=== PATIENT | female | born 1930 | race Caucasian/White ===

== ENCOUNTER 2018-05-29 11:02 | Observation (INO) ==
--- NOTE | 2018-05-29 11:51 | Emergency Department Note ---
Disposition Clinical Impression: UTI (urinary tract infection) Qualifiers: Urinary tract infection type: acute cystitis Hematuria presence: with hematuria Qualified Code(s): N30.01 - Acute cystitis with hematuria Fall Qualifiers: Encounter type: initial encounter Qualified Code(s): W19.XXXA - Unspecified fall, initial encounter Nasal bone fracture Qualifiers: Encounter type: initial encounter Fracture type: closed Qualified Code(s): S02.2XXA - Fracture of nasal bones, initial encounter for closed fracture Disposition: Transfer Short-Term Hosp Condition: Good Instructions: Urinary Tract Infection in Women (ED) Referrals: Marcela Bass CNP [Primary Care Provider] - Forms: ED Satisfaction Letter Time of Disposition: 14:17 Fall HPI - General Chief Complaint: ED Fall Stated Complaint: Fall Time Seen by Provider: 05/29/18 11:03 Source: patient, EMS Mode of arrival: EMS Limitations: no limitations Nursing Notes Reviewed: Yes Vital Signs Reviewed: Yes - History of Present Illness HPI Narrative: Ms. Tavares is a 88 yo female that presents via EMS for fall at home. Neighbor had been calling since 7:30am, family came to check on her just [employer] and found patient down in the living room. Patient was confused, saying she was laying in bed. She does not remember falling or getting out of bed this morning. Currently she notes pain in her left shoulder that is new and pain with palpation of left lateral upper ribs. Notes pain is 5/10 in severity. Denies chest pain, dyspnea, headaches, dizziness, vision changes, neck pain, abdominal pain, dysuria. PMHx of HTN, DM- Family states she does not take her medications as indicated. - Related Data Home Medications Medication Instructions Recorded Confirmed Aspirin [Lo-Dose Aspirin EC] 81 mg PO DAILY 05/29/18 05/29/18 Cyanocobalamin (Vitamin B-12) 1,000 mcg PO DAILY 05/29/18 05/29/18 [Vitamin B-12] Escitalopram [Lexapro] 10 mg PO DAILY 05/29/18 05/29/18 Glimepiride [Amaryl] 4 mg PO BID 05/29/18 05/29/18 Lisinopril [Zestril] 40 mg PO DAILY 05/29/18 05/29/18 Metoprolol Succinate [Toprol Xl] 25 mg PO DAILY 05/29/18 05/29/18 Montelukast [Singulair] 10 mg PO DAILY 05/29/18 05/29/18 Omeprazole [PriLOSEC] 40 mg PO DAILY 05/29/18 05/29/18 SitaGLIPtin [Januvia] 100 mg PO DAILY 05/29/18 05/29/18 Allergies Allergy/AdvReac Type Severity Reaction Status Date / Time "some steroids" Allergy See Uncoded 05/29/18 14:21 Comments All systems ED: reviewed and negative except as stated. 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 Absent: scleral icterus, conjunctival injection - ENT ENT exam: normal exam, mucous membranes moist - Neck Neck exam: Present: normal inspection, full ROM. Absent: tenderness - Chest Chest inspection: Present: symmetric chest wall rise, tenderness (left lateral pain with deep inspiration) - Respiratory Respiratory exam: Present: normal lung sounds bilaterally. Absent: respiratory distress, wheezes, accessory muscle use - Cardiovascular Cardiovascular exam: Present: regular rate, normal rhythm, +S1, +S2 - Abdominal Exam Abdominal exam: Present: soft, Non-Tender. Absent: distention, guarding, rebound, rigidity - Extremities Exam Extremities exam: Present: full ROM (of BLE and RUE.), tenderness (only of LUE) , normal capillary refill. Absent: pedal edema - Expanded Upper Extremity Exam Shoulder exam: Present: tenderness (with movement and palpation around shoulder joint). Absent: swelling, ecchymosis, erythema Vascular exam: Normal: capillary refill - Neurological Exam Neurological exam: Present: alert, oriented X3 - Psychiatric Psychiatric exam: Present: normal affect, normal mood - Skin Skin exam: Present: warm, dry, intact, normal color Course Vital Signs Temperature 99.0 F 05/29/18 11:04 Pulse Rate 83 05/29/18 11:04 Respiratory Rate 18 05/29/18 11:04 Blood Pressure 229/85 05/29/18 11:04 O2 Sat by Pulse Oximetry 95 05/29/18 11:04 Temperature 99.0 F 05/29/18 11:04 Pulse Rate 90 05/29/18 12:18 Respiratory Rate 18 05/29/18 12:18 Blood Pressure 162/87 05/29/18 12:18 O2 Sat by Pulse Oximetry 96 05/29/18 12:18 Oxygen Delivery Oxygen Delivery Room Air Fall - MDM Narrative Medical decision making narrative: Patient seen for fall that she does not remember what happened and was confused as to where she was at. CT head and neck negative. Complaints of L shoulder and rib pain, CXR and shoulder XR negative. Facial CT with nasal bone fracture. Labs with low Na of 129, possibly secondary to elevated BG. Family notes she has not been taking HTN or DM meds. UA postive for UTI in addition to having hematuria, glucose and protein present. Will start on antiobiotics for UTI. Patient aware of results and recommendation for admission, she and family in agreement. - Differential Diagnosis Likely: syncope, arrhythmia - Lab Data Lab results reviewed: Yes I reviewed the patient's lab results. Result diagrams: 05/29/18 12:26 05/29/18 12:26 Lab Results 05/29/18 05/29/18 05/29/18 Range/Units 12:26 12:26 12:26 WBC 10.5 (4.3-11.1) K/mcL RBC 5.21 H (3.82-4.97) M/mcL Hgb 15.3 (11.5-15.4) g/dL Hct 44.1 (35.3-44.9) % MCV 84.6 (83.0-100.0) fL MCH 29.4 (28.0-33.3) pg MCHC 34.7 (31.6-35.5) g/dL RDW 13.4 (11.5-14.5) % Plt Count 199 (140-400) K/mcL MPV 8.9 L (9.4-12.4) fL Immature Gran % 0.4 (0-4) % Seg Neutrophils % 77.3 % Lymphocytes % 13.9 % Monocytes % 7.7 % Eosinophils % 0.2 % Basophils % 0.5 % Neutrophils # 8.1 (1.6-8.9) K/mcL Lymphocytes # 1.5 (0.6-4.6) K/mcL Monocytes # 0.8 (0.0-1.3) K/mcL Eosinophils # 0.0 (0.0-0.6) K/mcL Basophils # 0.1 (0.0-0.2) K/mcL PT 11.7 (9.4-12.1) Seconds INR 1.0 APTT 27.1 (26.0-36.0) Seconds Sodium 129 L (136-145) mEq/L Potassium 3.7 (3.5-5.1) mEq/L Chloride 95 L (98-107) mEq/L Carbon Dioxide 23 (23-29) mEq/L BUN 13 (8-23) mg/dL Creatinine 0.71 (0.60-1.20) mg/dL Est GFR ( Amer) > 60 (> 60) Est GFR (Non-Af Amer) > 60 (> 60) BUN/Creatinine Ratio 18 (6-26) Glucose 255 H (70-105) mg/dL Calculated Osmolality 277 L (280-300) Lactic Acid (0.5-2.2) mmol/L Calcium 9.4 (8.6-10.3) mg/dL Troponin I (< 0.04) ng/mL Urine Color (Yellow) Urine Clarity (Clear) Urine pH (5.0-8.0) pH Units Ur Specific [place] (1.010-1.025) Urine Protein (Neg-Trace) mg/dL Urine Glucose (UA) (Normal) mg/dL Urine Ketones (Negative) mg/dL Urine Blood (Negative) Urine Nitrite (Negative) Urine Bilirubin (Negative) Urine Urobilinogen (Normal) mg/dL Ur Leukocyte Esterase (Negative) Urine Microscopic RBC (0-3) per hpf Urine Microscopic WBC (0-3) per hpf Ur Squamous Epith Cells (None-Few) per lpf Urine Bacteria (None-Few) per hpf Hyaline Casts (None-Few) per lpf 05/29/18 05/29/18 05/29/18 Range/Units 12:26 12:26 13:05 WBC (4.3-11.1) K/mcL RBC (3.82-4.97) M/mcL Hgb (11.5-15.4) g/dL Hct (35.3-44.9) % MCV (83.0-100.0) fL MCH (28.0-33.3) pg MCHC (31.6-35.5) g/dL RDW (11.5-14.5) % Plt Count (140-400) K/mcL MPV (9.4-12.4) fL Immature Gran % (0-4) % Seg Neutrophils % % Lymphocytes % % Monocytes % % Eosinophils % % Basophils % % Neutrophils # (1.6-8.9) K/mcL Lymphocytes # (0.6-4.6) K/mcL Monocytes # (0.0-1.3) K/mcL Eosinophils # (0.0-0.6) K/mcL Basophils # (0.0-0.2) K/mcL PT (9.4-12.1) Seconds INR APTT (26.0-36.0) Seconds Sodium (136-145) mEq/L Potassium (3.5-5.1) mEq/L Chloride (98-107) mEq/L Carbon Dioxide (23-29) mEq/L BUN (8-23) mg/dL Creatinine (0.60-1.20) mg/dL Est GFR ( Amer) (> 60) Est GFR (Non-Af Amer) (> 60) BUN/Creatinine Ratio (6-26) Glucose (70-105) mg/dL Calculated Osmolality (280-300) Lactic Acid 2.1 (0.5-2.2) mmol/L Calcium (8.6-10.3) mg/dL Troponin I < 0.03 (< 0.04) ng/mL Urine Color Yellow (Yellow) Urine Clarity Turbid A (Clear) Urine pH 6.0 (5.0-8.0) pH Units Ur Specific [place] 1.018 (1.010-1.025) Urine Protein >=300 H (Neg-Trace) mg/dL Urine Glucose (UA) >=1000 H (Normal) mg/dL Urine Ketones 15 H (Negative) mg/dL Urine Blood Small H (Negative) Urine Nitrite Negative (Negative) Urine Bilirubin Negative (Negative) Urine Urobilinogen Normal (Normal) mg/dL Ur Leukocyte Esterase Large H (Negative) Urine Microscopic RBC 5-15 H (0-3) per hpf Urine Microscopic WBC TNTC H (0-3) per hpf Ur Squamous Epith Cells Many H (None-Few) per lpf Urine Bacteria Many H (None-Few) per hpf Hyaline Casts None Seen (None-Few) per lpf - Radiology Data Radiology results reviewed: Yes I reviewed the patient's radiology results. - EKG Data EKG attestation: Yes I reviewed and interpreted this EKG. EKG shows normal: sinus rhythm Rate: normal Rhythm: NSR
[2018-05-29 12:40] LABS: Basophils # 0.1 K/mcL (0.0-0.2); Basophils % 0.5 %; Eosinophils % 0.2 %; Hematocrit 44.1 % (35.3-44.9); Hemoglobin 15.3 g/dL (11.5-15.4); Immature Granulocytes % 0.4 % (0-4); Lymphocytes # 1.5 K/mcL (0.6-4.6); Lymphocytes % 13.9 %; Mean Corpuscular HGB Conc 34.7 g/dL (31.6-35.5); Mean Corpuscular Hemoglobin 29.4 pg (28.0-33.3); Mean Corpuscular Volume 84.6 fL (83.0-100.0); Mean Platelet Volume 8.9 fL (9.4-12.4); Monocytes # 0.8 K/mcL (0.0-1.3); Monocytes % 7.7 %; Neutrophils # 8.1 K/mcL (1.6-8.9); Platelet Count 199 K/mcL (140-400); Red Blood Count 5.21 M/mcL (3.82-4.97); Red Cell Distribution Width 13.4 % (11.5-14.5); Segmented Neutrophils % 77.3 %
[2018-05-29 12:50] LABS: Prothrombin Time 11.7 Seconds (9.4-12.1)
[2018-05-29 12:52] LABS: Activated Partial Thrombo Time 27.1 Seconds (26.0-36.0)
[2018-05-29 12:59] LABS: BUN/Creatinine Ratio 18 (6-26); Blood Urea Nitrogen 13 mg/dL (8-23); Calcium 9.4 mg/dL (8.6-10.3); Carbon Dioxide 23 mEq/L (23-29); Chloride 95 mEq/L (98-107); Glucose 255 mg/dL (70-105); Osmolality,Calculated 277 (280-300); Potassium 3.7 mEq/L (3.5-5.1); Sodium 129 mEq/L (136-145); eGFR For Non-African Americans > 60 (> 60)
[2018-05-29 13:23] LABS: Bilirubin,Urine Negative (Negative); Blood,Urine Small (Negative); Clarity,Urine Turbid (Clear); Color,Urine Yellow (Yellow); Glucose,Urine (UA) >=1000 mg/dL (Normal); Ketones,Urine 15 mg/dL (Negative); Leukocyte Esterase,Urine Large (Negative); Nitrite,Urine Negative (Negative); Protein,Urine >=300 mg/dL (Neg-Trace); Specific Gravity,Urine 1.018 (1.010-1.025); Urobilinogen,Urine Normal (Normal)
[2018-05-29 13:26] LABS: Bacteria,Urine Many per hpf (None-Few); Hyaline Casts,Urine None Seen per lpf (None-Few); Squamous Epithelial Cell,Urine Many per lpf (None-Few); WBC,Urine TNTC per hpf (0-3)
--- NOTE | 2018-05-29 14:15 | Emergency Department Note ---
Disposition Clinical Impression: Head trauma Urinary tract infection Qualifiers: Urinary tract infection type: acute cystitis Hematuria presence: with hematuria Qualified Code(s): N30.01 - Acute cystitis with hematuria Disposition: Admitted As Inpatient Condition: Fair Instructions: Urinary Tract Infection in Women (ED) Referrals: Marcela Bass CNP [Primary Care Provider] - Forms: ED Satisfaction Letter Time of Disposition: 14:00 Fall HPI - General Chief Complaint: ED Fall Stated Complaint: Fall Time Seen by Provider: 05/29/18 11:03 Source: patient, EMS Mode of arrival: EMS Limitations: no limitations Nursing Notes Reviewed: Yes Vital Signs Reviewed: Yes - Related Data Allergies Allergy/AdvReac Type Severity Reaction Status Date / Time "some steroids" Allergy See Uncoded 05/29/18 11:14 Comments Fall PMH - Past Medical History Medical history: Reports: diabetes, hypertension 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, Chronic Gait Instabilites Surgical history: Reports: other - Social History Smoking Status: Never smoker Alcohol use: Reports: none Drug use: Reports: none Physical Exam - General Limitations: no limitations General appearance: alert, in no apparent distress Course Vital Signs Temperature 99.0 F 05/29/18 11:04 Pulse Rate 83 05/29/18 11:04 Respiratory Rate 18 05/29/18 11:04 Blood Pressure 229/85 05/29/18 11:04 O2 Sat by Pulse Oximetry 95 05/29/18 11:04 Temperature 99.0 F 05/29/18 11:04 Pulse Rate 90 05/29/18 12:18 Respiratory Rate 18 05/29/18 12:18 Blood Pressure 162/87 05/29/18 12:18 O2 Sat by Pulse Oximetry 96 05/29/18 12:18 Oxygen Delivery Oxygen Delivery Room Air Fall - Lab Data Result diagrams: 05/29/18 12:26 05/29/18 12:26 Lab Results 05/29/18 05/29/18 05/29/18 Range/Units 12:26 12:26 12:26 WBC 10.5 (4.3-11.1) K/mcL RBC 5.21 H (3.82-4.97) M/mcL Hgb 15.3 (11.5-15.4) g/dL Hct 44.1 (35.3-44.9) % MCV 84.6 (83.0-100.0) fL MCH 29.4 (28.0-33.3) pg MCHC 34.7 (31.6-35.5) g/dL RDW 13.4 (11.5-14.5) % Plt Count 199 (140-400) K/mcL MPV 8.9 L (9.4-12.4) fL Immature Gran % 0.4 (0-4) % Seg Neutrophils % 77.3 % Lymphocytes % 13.9 % Monocytes % 7.7 % Eosinophils % 0.2 % Basophils % 0.5 % Neutrophils # 8.1 (1.6-8.9) K/mcL Lymphocytes # 1.5 (0.6-4.6) K/mcL Monocytes # 0.8 (0.0-1.3) K/mcL Eosinophils # 0.0 (0.0-0.6) K/mcL Basophils # 0.1 (0.0-0.2) K/mcL PT 11.7 (9.4-12.1) Seconds INR 1.0 APTT 27.1 (26.0-36.0) Seconds Sodium 129 L (136-145) mEq/L Potassium 3.7 (3.5-5.1) mEq/L Chloride 95 L (98-107) mEq/L Carbon Dioxide 23 (23-29) mEq/L BUN 13 (8-23) mg/dL Creatinine 0.71 (0.60-1.20) mg/dL Est GFR ( Amer) > 60 (> 60) Est GFR (Non-Af Amer) > 60 (> 60) BUN/Creatinine Ratio 18 (6-26) Glucose 255 H (70-105) mg/dL Calculated Osmolality 277 L (280-300) Lactic Acid (0.5-2.2) mmol/L Calcium 9.4 (8.6-10.3) mg/dL Troponin I (< 0.04) ng/mL Urine Color (Yellow) Urine Clarity (Clear) Urine pH (5.0-8.0) pH Units Ur Specific [place] (1.010-1.025) Urine Protein (Neg-Trace) mg/dL Urine Glucose (UA) (Normal) mg/dL Urine Ketones (Negative) mg/dL Urine Blood (Negative) Urine Nitrite (Negative) Urine Bilirubin (Negative) Urine Urobilinogen (Normal) mg/dL Ur Leukocyte Esterase (Negative) Urine Microscopic RBC (0-3) per hpf Urine Microscopic WBC (0-3) per hpf Ur Squamous Epith Cells (None-Few) per lpf Urine Bacteria (None-Few) per hpf Hyaline Casts (None-Few) per lpf 05/29/18 05/29/18 05/29/18 Range/Units 12:26 12:26 13:05 WBC (4.3-11.1) K/mcL RBC (3.82-4.97) M/mcL Hgb (11.5-15.4) g/dL Hct (35.3-44.9) % MCV (83.0-100.0) fL MCH (28.0-33.3) pg MCHC (31.6-35.5) g/dL RDW (11.5-14.5) % Plt Count (140-400) K/mcL MPV (9.4-12.4) fL Immature Gran % (0-4) % Seg Neutrophils % % Lymphocytes % % Monocytes % % Eosinophils % % Basophils % % Neutrophils # (1.6-8.9) K/mcL Lymphocytes # (0.6-4.6) K/mcL Monocytes # (0.0-1.3) K/mcL Eosinophils # (0.0-0.6) K/mcL Basophils # (0.0-0.2) K/mcL PT (9.4-12.1) Seconds INR APTT (26.0-36.0) Seconds Sodium (136-145) mEq/L Potassium (3.5-5.1) mEq/L Chloride (98-107) mEq/L Carbon Dioxide (23-29) mEq/L BUN (8-23) mg/dL Creatinine (0.60-1.20) mg/dL Est GFR ( Amer) (> 60) Est GFR (Non-Af Amer) (> 60) BUN/Creatinine Ratio (6-26) Glucose (70-105) mg/dL Calculated Osmolality (280-300) Lactic Acid 2.1 (0.5-2.2) mmol/L Calcium (8.6-10.3) mg/dL Troponin I < 0.03 (< 0.04) ng/mL Urine Color Yellow (Yellow) Urine Clarity Turbid A (Clear) Urine pH 6.0 (5.0-8.0) pH Units Ur Specific [place] 1.018 (1.010-1.025) Urine Protein >=300 H (Neg-Trace) mg/dL Urine Glucose (UA) >=1000 H (Normal) mg/dL Urine Ketones 15 H (Negative) mg/dL Urine Blood Small H (Negative) Urine Nitrite Negative (Negative) Urine Bilirubin Negative (Negative) Urine Urobilinogen Normal (Normal) mg/dL Ur Leukocyte Esterase Large H (Negative) Urine Microscopic RBC 5-15 H (0-3) per hpf Urine Microscopic WBC TNTC H (0-3) per hpf Ur Squamous Epith Cells Many H (None-Few) per lpf Urine Bacteria Many H (None-Few) per hpf Hyaline Casts None Seen (None-Few) per lpf Attestation Statement - Attestation Attestation: I, Claudio Frey, examined this patient and my medical decision-making was reviewed with the PRODUCT MERCHANDISER/PA/Advanced Practice Nurse/Resident Physician. I agree with the documented findings, disposition and treatment plan as described except to the extent set forth below. 88-year-old female presents emergency Department with concerns of a fall this morning. Patient is unable to recall the events surrounding the fall. She thought that she was still in her bed while she was laying on the ground in the kitchen. Family found her on the ground is unknown how long she was on the ground. Patient is alert and oriented 3 in emergency department. Patient has a history of urinary tract infections in the past. Urinalysis today showed urinary tract infection. She was given antibiotics in the emergency department she will be admitted to the hospital for further care and evaluation. CT of the head and neck does not reveal acute fracture or internal hemorrhage however CT maxillofacial showed nasal bridge fracture. Patient will be admitted to the hospital for further care and evaluation
[2018-05-29] MEDS ORDERED: CefTRIAXone 1,000 MG VIAL IM ONE (14:16)
[2018-05-29 14:40] LABS: Creatine Kinase 177 Units/L (30-223)
[2018-05-29] MEDS ORDERED: Naloxone 0.4 MG/ML INJ IVP PRN (15:00)
[2018-05-29] MEDS ORDERED: *HR* Dextrose 50 % in Water (Syg) 50 ML SYRINGE IVP PRN (15:04)
[2018-05-29] MEDS ORDERED: Dextrose Gel 15 GM/37.5 ML TUBE PO PRN ×2 (15:04)
[2018-05-29] MEDS ORDERED: D5% in Water 1,000 ML IVC PRN (15:04)
--- NOTE | 2018-05-29 15:17 | Internal Med History&Physical ---
Date of Encounter: 05/29/18 Time of Encounter: 15:07 Internal Medicine - H&P: HPI Chief complaint: fall Admitted From: Home Plans for Post Hospital Care: Transfer Care Home Facility History of present illness: Ms. Tavares is a 88 yo female who has hx of hypertension, DM, lives alone at home , she presented via EMS for fall at home. Patient said that she woke up 4 a.m. try to get some water and then she fell on the floor unable to get up she denies loss of consciousness. Neighbors had been calling since 7:30am, family came to check on her at 10 am, she was found on the floor in the living room. Patient was confused, saying she was laying in bed. she notes pain in her left shoulder that is new and pain with palpation of left lateral upper ribs. Notes pain is 5/10 in severity. In ER, she was found UTI, and nasal bone fracture. When I saw her , she is alert and oriented to3, her daughter in low and 2 Neighbors are in the room. they are concerned about she has been falling, 3-4 times last year, she broke her nase last time as well. they are thinking to get her into child nutrition assistant living. Patient on and off getting confused, not take medications as instructed. patient denies LOC during the fall. Denies chest pain , dyspnea, headaches, dizziness, vision changes, neck pain, abdominal pain, dysuria. I discussed the CODE STATUS with patient and her her [id number] who is patient is a ANSELMO Horton. They want to be DNR CCA no intubation. Patient is going to be palced OBS for fall, UTI, consult PT OT social work for placement. Past Med Surg Social Fam HX - Past Medical History Medical history: diabetes, hypertension - Past Surgical History Surgical History: other - Social History Smoking Status: Never smoker Smokeless Tobacco Status: No Alcohol use: none Drug use: none Internal Medicine - H&P: Meds Aspirin [Lo-Dose Aspirin EC] 81 mg PO DAILY 05/29/18 [History] Cyanocobalamin (Vitamin B-12) [Vitamin B-12] 1,000 mcg PO DAILY 05/29/18 [ History] Escitalopram [Lexapro] 10 mg PO DAILY 05/29/18 [History] Glimepiride [Amaryl] 4 mg PO BID 05/29/18 [History] Lisinopril [Zestril] 40 mg PO DAILY 05/29/18 [History] Metoprolol Succinate [Toprol Xl] 25 mg PO DAILY 05/29/18 [History] Montelukast [Singulair] 10 mg PO DAILY 05/29/18 [History] Omeprazole [PriLOSEC] 40 mg PO DAILY 05/29/18 [History] SitaGLIPtin [Januvia] 100 mg PO DAILY 05/29/18 [History] 3 Allergy/AdvReac Type Severity Reaction Status Date / Time "some steroids" Allergy See Uncoded 05/29/18 14:21 Comments All Systems PM: A 10-system review of systems was performed and is negative for pertinent findings except as documented above in the HPI. - Constitutional Vitals: Temp Pulse Resp BP Pulse Ox 99.0 F 81 18 144/76 95 05/29/18 11:04 05/29/18 14:21 05/29/18 14:21 05/29/18 14:21 05/29/18 14:21 General appearance: Present: cooperative, A&O X 3, pleasant Exam: CONSTITUTIONAL: Patient appears as an age appropriate female well developed, in no acute distress. EYES Clear sclerae, bilateral pupils are equal, reactive to light and accommodation. Extraocular movements are intact RESPIRATORY: No accessory muscle use, bilateral basilar crackles to auscultation , no wheezing. CARDIOVASCULAR: Regular heart rate, normal S1 and S2, no murmurs GASTROINTESTINAL: bowel sounds present, soft, no tenderness. No hepatosplenomegaly. No bilateral CVA tenderness MUSCULOSKELETAL: Joints in normal range of motion, no clubbing, no edema, no cyanosis. Bilateral peripheral pulses 2+ LYMPHATIC no lymphadenopathy in neck, groin and axilla bilaterally, no thyromegaly. NEUROLOGIC: CN II to XII are grossly intact, no focal neurological deficit. Deep tendon reflexes 2+ bilaterally. Normal light touch sensation to upper and lower extremity PSYCHIATRIC: Oriented x3, with good insight, mood is euthymic. No hallucinations or delusions. SKIN: Skin warm and dry, no rashes, no open wound. Internal Med - H&P Results - Labs CBC & Chem 7: 05/29/18 12:26 05/29/18 12:26 - Assessment and plan (1) Fall Current Visit: Yes Status: Acute Assessment and plan: Patient lives at home alone, had this 3-4 times fall over last year, she also has on and off confusion. Patient had a son just . [id number] lives nearby. Discussed with her [id number] who is a POA, she would like patient to go to assisted living facility or short-term rehabilitation. Patient also agrees to go to SNF. Patient has a negative C-spine shoulder x-ray did not show fracture. Chest x- ray and did not show pneumothorax or pneumonia. consult PT and OT, social work Qualifiers: Encounter type: initial encounter Qualified Code(s): W19.XXXA - Unspecified fall, initial encounter (2) UTI (urinary tract infection) Current Visit: Yes Status: Acute Assessment and plan: continue iV ceftriaxone Qualifiers: Urinary tract infection type: acute cystitis Hematuria presence: without hematuria Qualified Code(s): N30.00 - Acute cystitis without hematuria (3) Diabetes Current Visit: Yes Status: Acute Assessment and plan: uncontrolled, will check A1c, she was not take medications at home, will add SSI Qualifiers: Diabetes mellitus type: type 2 Diabetes mellitus terminal clerk insulin use: without terminal clerk use Diabetes mellitus complication status: without complication Qualified Code(s): E11.9 - Type 2 diabetes mellitus without complications (4) Hypertension Current Visit: Yes Status: Acute Assessment and plan: contineu home meds Qualifiers: Hypertension type: essential hypertension Qualified Code(s): I10 - Essential (primary) hypertension (5) Hyponatremia Current Visit: Yes Status: Acute Assessment and plan: likley from uncontrolled DM, BG was 255 (6) Cardiomyopathy Current Visit: Yes Status: Acute Assessment and plan: will check ECHo Qualifiers: Cardiomyopathy type: unspecified Qualified Code(s): I42.9 - Cardiomyopathy , unspecified (7) Nasal bone fracture Current Visit: Yes Status: Acute Assessment and plan: she she denies pain, denies shortness of breath, no nasal stuffness supportive care Qualifiers: Encounter type: initial encounter Fracture type: closed Qualified Code(s) : S02.2XXA - Fracture of nasal bones, initial encounter for closed fracture - Time Spent With Patient Total time spent is greater than 50% in coordination of care (as documented) at patient's floor/unit and/or counseling patient: Greater than 35 minutes
[2018-05-29] MEDS: *HR* Heparin 5,000 UNIT/ML VIAL SQ SCH ×2 (16:19→21:11)
[2018-05-29] MEDS: Acetaminophen 325 MG TABLET PO PRN (16:19)
[2018-05-29] MEDS: Aspirin Enteric Coated 81 MG Tablet PO SCH (16:20)
[2018-05-29] MEDS: Insulin LISPRO 300 UNITS/3 ML VIAL SQ SCH ×2 (16:49→21:10)
[2018-05-29 20:58] LABS: Estimated Average Glucose 220 mg/dl; Hemoglobin A1C 9.3 %
[2018-05-29] MEDS: *HR* Glimepiride 4 MG TABLET PO SCH (21:10)
[2018-05-30 05:06] LABS: Hematocrit 40.3 % (35.3-44.9); Mean Corpuscular HGB Conc 33.3 g/dL (31.6-35.5); Mean Corpuscular Hemoglobin 28.2 pg (28.0-33.3); Mean Corpuscular Volume 84.8 fL (83.0-100.0); Mean Platelet Volume 9.4 fL (9.4-12.4); Platelet Count 205 K/mcL (140-400); Red Blood Count 4.75 M/mcL (3.82-4.97); Red Cell Distribution Width 13.8 % (11.5-14.5)
[2018-05-30 05:20] LABS: BUN/Creatinine Ratio 25 (6-26); Blood Urea Nitrogen 24 mg/dL (8-23); Calcium 9.3 mg/dL (8.6-10.3); Carbon Dioxide 24 mEq/L (23-29); Chloride 100 mEq/L (98-107); Glucose 284 mg/dL (70-105); Magnesium 2.1 mg/dL (1.6-2.6); Osmolality,Calculated 292 (280-300); Potassium 3.5 mEq/L (3.5-5.1); Sodium 134 mEq/L (136-145); eGFR For Non-African Americans 55 (> 60)
[2018-05-30 05:21] LABS: Troponin I < 0.03 ng/mL (< 0.04)
[2018-05-30 05:24] LABS: Hemoglobin 13.4 g/dL (11.5-15.4)
[2018-05-30] MEDS: *HR* Heparin 5,000 UNIT/ML VIAL SQ SCH ×3 (06:27→20:47)
[2018-05-30] MEDS: *HR* SitaGLIPtin 25 MG TABLET PO SCH (08:21)
[2018-05-30] MEDS: Lisinopril 20 MG TABLET PO SCH (08:21)
[2018-05-30] MEDS: Cyanocobalamin (B-12) 1,000 MCG TABLET PO SCH (08:21)
[2018-05-30] MEDS: Aspirin Enteric Coated 81 MG Tablet PO SCH (08:22)
[2018-05-30] MEDS: Metoprolol XL (24 HR) Succ 25 MG TAB.ER.24H PO SCH (08:22)
[2018-05-30] MEDS: *HR* Glimepiride 4 MG TABLET PO SCH ×2 (08:22→20:47)
[2018-05-30] MEDS: Insulin LISPRO 300 UNITS/3 ML VIAL SQ SCH ×4 (08:24→20:50)
--- NOTE | 2018-05-30 08:25 | Internal Med Progress Note ---
Hospitalist Progress Note - Encounter Date of Encounter: 05/30/18 Time of Encounter: 08:29 - Subjective Interval History: Ms. Tavares is a 88 yo female who has hx of hypertension, DM, lives alone at home , she presented via EMS for fall at home. Patient said that she woke up 4 a.m. try to get some water and then she fell on the floor unable to get up she denies loss of consciousness. Neighbors had been calling since 7:30am, family came to check on her at 10 am, she was found on the floor in the living room. Patient was confused, saying she was laying in bed. she notes pain in her left shoulder that is new and pain with palpation of left lateral upper ribs. Notes pain is 5/10 in severity. In ER, she was found UTI, and nasal bone fracture. I discussed the CODE STATUS with patient and her her [id number] who is patient is a ANSELMO Horton. They want to be DNR CCA no intubation. Patient is going to be palced OBS for fall, UTI, consult PT OT social work for placement. Patient is doing well, afebrile, overnight no issues. She has been drinking and water. Potassium 3.5 we will give 40 Meq . Blood glucose has been running 377-284. We will add long acting insulin detemir 10 units twice a day, A1c 9.3 %. Troponin is negative 2 BNP 95. UTI pending culture, continue ceftriaxone Awaiting for PTOT and replacement Patient lives alone at home, unable to take care of herself, no family is available for her. She needs go to long-term care - Exam Vitals: Temp Pulse Resp BP Pulse Ox 97.4 F L 74 16 146/81 94 05/30/18 05:11 05/30/18 05:11 05/30/18 05:11 05/30/18 05:11 05/30/18 05:11 Exam: CONSTITUTIONAL: Patient appears as an age appropriate female well developed, in no acute distress. EYES Clear sclerae, bilateral pupils are equal, reactive to light and accommodation. Extraocular movements are intact RESPIRATORY: No accessory muscle use, bilateral basilar crackles to auscultation , no wheezing. CARDIOVASCULAR: Regular heart rate, normal S1 and S2, no murmurs GASTROINTESTINAL: bowel sounds present, soft, no tenderness. No hepatosplenomegaly. No bilateral CVA tenderness MUSCULOSKELETAL: Joints in normal range of motion, no clubbing, no edema, no cyanosis. Bilateral peripheral pulses 2+ LYMPHATIC no lymphadenopathy in neck, groin and axilla bilaterally, no thyromegaly. NEUROLOGIC: CN II to XII are grossly intact, no focal neurological deficit. Deep tendon reflexes 2+ bilaterally. Normal light touch sensation to upper and lower extremity PSYCHIATRIC: Oriented x3, with good insight, mood is euthymic. No hallucinations or delusions. SKIN: Skin warm and dry, no rashes, no open wound. - Assessment and Plan (1) Fall Current Visit: Yes Status: Acute Assessment and Plan: recurrent falls at the home, Nasal bone fracture Lives alone in home, no family is available for her she needs to go to long-term care Her POA is daughter in-law Meagan Horton (2) UTI (urinary tract infection) Current Visit: Yes Status: Acute Assessment and Plan: pendign culture, contineu ceftriaxone (3) Diabetes Current Visit: Yes Status: Acute Assessment and Plan: Type 2 diabetes uncontrolled, due to noncompliant with diet and medications. A1c 9.3%. We will continue home medication and add detmir 10 units twice a day (4) Hypertension Current Visit: Yes Status: Acute Assessment and Plan: better controlled with home meds (5) Hyponatremia Current Visit: Yes Status: Acute Assessment and Plan: resolved (6) Cardiomyopathy Current Visit: Yes Status: Acute Assessment and Plan: pending TTE (7) Nasal bone fracture Current Visit: Yes Status: Acute Assessment and Plan: supportive care (8) Hypokalemia Current Visit: Yes Status: Acute Assessment and Plan: replaced - Time Spent with Patient Total time spent is greater than 50% in coordination of care (as documented) at patient's floor/unit and/or counseling patient: 25 - 35 minutes Internal Medicine: Result - Labs CBC & Chem 7: 05/30/18 04:16 05/30/18 04:16 Labs: Short CBC 05/30/18 Range/Units 04:16 WBC 7.7 (4.3-11.1) K/mcL Hgb 13.4 D (11.5-15.4) g/dL Hct 40.3 (35.3-44.9) % Plt Count 205 (140-400) K/mcL BMP 05/30/18 04:16 Sodium 134 L Potassium 3.5 Chloride 100 Carbon Dioxide 24 BUN 24 H Creatinine 0.95 Glucose 284 H Calcium 9.3 Cardiac Enzymes 05/30/18 Range/Units 04:16 Troponin I < 0.03 (< 0.04) ng/mL - ABG Interpretation ABG results: PT/INR, D-dimer PT 11.7 Seconds (9.4-12.1) 05/29/18 12:26 Consult Discharge Plan - Plan Referrals: Marcela Bass, MAINTENANCE TRUCK DRIVER [Primary Care Provider] - (1) Fall Qualifiers: Encounter type: initial encounter Qualified Code(s): W19.XXXA - Unspecified fall, initial encounter (2) UTI (urinary tract infection) Qualifiers: Urinary tract infection type: acute cystitis Hematuria presence: without hematuria Qualified Code(s): N30.00 - Acute cystitis without hematuria (3) Diabetes Qualifiers: Diabetes mellitus type: type 2 Diabetes mellitus chcf insulin use: without moth exterminator use Diabetes mellitus complication status: without complication Qualified Code(s): E11.9 - Type 2 diabetes mellitus without complications (4) Hypertension Qualifiers: Hypertension type: essential hypertension Qualified Code(s): I10 - Essential (primary) hypertension (6) Cardiomyopathy Qualifiers: Cardiomyopathy type: unspecified Qualified Code(s): I42.9 - Cardiomyopathy, unspecified (7) Nasal bone fracture Qualifiers: Encounter type: initial encounter Fracture type: closed Qualified Code(s): S02.2XXA - Fracture of nasal bones, initial encounter for closed fracture
[2018-05-30] MEDS: Insulin DETEMIR 100 UNIT/ML X5UNITS SQ SCH ×2 (10:18→20:47)
[2018-05-30] MEDS: cefTRIAXone 1,000 MG in Water for inj. (sterile) 20 ML 10 ML IVP SCH (15:05)
[2018-05-30] MEDS: Acetaminophen 325 MG TABLET PO PRN (17:55)
[2018-05-31] MEDS: Acetaminophen 325 MG TABLET PO PRN (00:03)
[2018-05-31] MEDS: *HR* Heparin 5,000 UNIT/ML VIAL SQ SCH ×3 (06:15→23:46)
[2018-05-31 06:18] LABS: BUN/Creatinine Ratio 28 (6-26); Blood Urea Nitrogen 24 mg/dL (8-23); Calcium 8.9 mg/dL (8.6-10.3); Carbon Dioxide 19 mEq/L (23-29); Chloride 101 mEq/L (98-107); Glucose 178 mg/dL (70-105); Osmolality,Calculated 278 (280-300); Potassium 3.8 mEq/L (3.5-5.1); Sodium 130 mEq/L (136-145); eGFR For Non-African Americans > 60 (> 60)
[2018-05-31] MEDS: *HR* SitaGLIPtin 25 MG TABLET PO SCH (08:29)
[2018-05-31] MEDS: Lisinopril 20 MG TABLET PO SCH (08:29)
[2018-05-31] MEDS: *HR* Glimepiride 4 MG TABLET PO SCH ×2 (08:29→23:45)
[2018-05-31] MEDS: Cyanocobalamin (B-12) 1,000 MCG TABLET PO SCH (08:29)
[2018-05-31] MEDS: Metoprolol XL (24 HR) Succ 25 MG TAB.ER.24H PO SCH (08:29)
[2018-05-31] MEDS: Insulin LISPRO 300 UNITS/3 ML VIAL SQ SCH ×4 (08:30→23:45)
[2018-05-31] MEDS: Aspirin Enteric Coated 81 MG Tablet PO SCH (08:30)
[2018-05-31] MEDS: Insulin DETEMIR 100 UNIT/ML X5UNITS SQ SCH ×2 (09:14→23:46)
--- NOTE | 2018-05-31 09:16 | Physician Discharge Referral ---
Home Health/Hosp Referral Info Transfer to: Home Health Attending Provider: Dr. Paz Provider in Charge Post Discharge: PCP - Diagnosis (1) Fall Priority: Primary Status: Acute (2) UTI (urinary tract infection) Priority: Secondary Status: Acute (3) Nasal bone fracture Priority: Secondary Status: Acute (4) DVT prophylaxis Priority: Secondary Status: Acute (5) Diabetes Priority: Secondary Status: Chronic (6) Hypertension Priority: Secondary Status: Chronic - Respiratory Orders None Smoking Cessation: Smoking cessation has been advised. For more information, call the [place] Tobacco Quit Line at 2-669-HQBG-NOW. - Diet/Nutrition Diet/Nutrition Orders: Cardiac - Activity Activity Orders: Up ad silvia, Walker - Services Needed Following services are medically necessary services: Home Health Aide, Physical Therapy, Occupational Therapy - Transfer Medications Prescriptions: Cephalexin [Keflex] 250 mg PO DAILY 5 Days #10 capsule Home Medications: Aspirin [Lo-Dose Aspirin EC] 81 mg PO DAILY 05/29/18 [History] Cyanocobalamin (Vitamin B-12) [Vitamin B-12] 1,000 mcg PO DAILY 05/29/18 [ History] Escitalopram [Lexapro] 10 mg PO DAILY 05/29/18 [History] Glimepiride [Amaryl] 4 mg PO BID 05/29/18 [History] Lisinopril [Zestril] 40 mg PO DAILY 05/29/18 [History] Metoprolol Succinate [Toprol Xl] 25 mg PO DAILY 05/29/18 [History] Montelukast [Singulair] 10 mg PO DAILY 05/29/18 [History] Omeprazole [PriLOSEC] 40 mg PO DAILY 05/29/18 [History] SitaGLIPtin [Januvia] 100 mg PO DAILY 05/29/18 [History] Cephalexin [Keflex] 250 mg PO DAILY 5 Days #10 capsule 05/31/18 [Rx] Allergies/Adverse Reactions: 3 Allergy/AdvReac Type Severity Reaction Status Date / Time "some steroids" Allergy See Uncoded 05/29/18 14:21 Comments Certification: Further, I certify that my clinical findings support that this patient is homebound (i.e. absences from home require considerable and taxing effort and are for medical reasons or gnosticist services or infrequently or short duration when for other reasons) because: Homebound Reason: Patient requires assistance of a person or device to safely leave home Attestation: My signature below is to certify that this patient is under my care and that I, or nurse practitioner, or a physician's assistant professor of mathematics working with me, has a face-to -face encounter with this patient.
--- NOTE | 2018-05-31 09:18 | Discharge Summary ---
- NOTES TO OUTPATIENT PROVIDER Notes to Outpatient Provider: Follow up on nasal bone fx if symptoms arise. Date of Encounter: 05/31/18 Time of Encounter: 09:16 - Discharge Diagnosis (1) Fall Priority: Primary Status: Acute Qualifiers: Encounter type: initial encounter Qualified Code(s): W19.XXXA - Unspecified fall, initial encounter (2) UTI (urinary tract infection) Priority: Secondary Status: Acute Qualifiers: Urinary tract infection type: acute cystitis Hematuria presence: without hematuria Qualified Code(s): N30.00 - Acute cystitis without hematuria (3) Nasal bone fracture Priority: Secondary Status: Acute (4) DVT prophylaxis Priority: Secondary Status: Acute (5) Diabetes Priority: Secondary Status: Chronic Qualifiers: Diabetes mellitus type: type 2 Diabetes mellitus fdc insulin use: without fdc use Diabetes mellitus complication status: without complication Qualified Code(s): E11.9 - Type 2 diabetes mellitus without complications (6) Hypertension Priority: Secondary Status: Chronic Qualifiers: Hypertension type: essential hypertension Qualified Code(s): I10 - Essential (primary) hypertension Hospital course: Ms. Tavares is a 88 year old female admitted on 05/30/18 She has a PMH of htn, dm. She lives at home by herself and states that she woke up at 4am and fell when trying to get water. The pt denies any LOC. She did hit her head and was found ot have a broken nasal bone. She was found on the floor in the living room and was confused. She was found to have a UTI as well and was placed on IV rocephin. In the last year the pt has had an increased amount of falls, 3-4x. She has broke her nasal bone once before. Patient has a negative C-spine shoulder x-ray did not show fracture. Chest x- ray showed no acute cardiopulmonary process. The pt doesn't want to go to a SNF at this time for extended care. She wishes to return home. The pt has ability to make her own medical decisions. The pt is stable for discharge and denies N/V/D, chest pain, abd pain, SOB. She can go home with Cephalexin for 5 days 250BID PO. Discharge discussed with: patient, nurse Time spent discussing smoking cessation with patient: 3 to 10 minutes - Time Spent with Patient Total time spent providing and/or coordinating discharge services: Less than 30 minutes - Discharge Medications Prescriptions: Cephalexin [Keflex] 250 mg PO DAILY 5 Days #10 capsule Home Medications: Aspirin [Lo-Dose Aspirin EC] 81 mg PO DAILY 05/29/18 [History] Cyanocobalamin (Vitamin B-12) [Vitamin B-12] 1,000 mcg PO DAILY 05/29/18 [ History] Escitalopram [Lexapro] 10 mg PO DAILY 05/29/18 [History] Glimepiride [Amaryl] 4 mg PO BID 05/29/18 [History] Lisinopril [Zestril] 40 mg PO DAILY 05/29/18 [History] Metoprolol Succinate [Toprol Xl] 25 mg PO DAILY 05/29/18 [History] Montelukast [Singulair] 10 mg PO DAILY 05/29/18 [History] Omeprazole [PriLOSEC] 40 mg PO DAILY 05/29/18 [History] SitaGLIPtin [Januvia] 100 mg PO DAILY 05/29/18 [History] Cephalexin [Keflex] 250 mg PO DAILY 5 Days #10 capsule 05/31/18 [Rx] Allergies/Adverse Reactions: 3 Allergy/AdvReac Type Severity Reaction Status Date / Time "some steroids" Allergy See Uncoded 05/29/18 14:21 Comments Date of admission: 05/29/18 14:41 Primary care physician: Marcela Bass CNP Consults: 05/29/18 15:03 Consult to Occupational Therapy [CONS] Routine Comment: Evaluate, develop and implement POC Reason for Consult: fall Does patient have active BEDREST order?: No Is patient medically & hemodynamically stable?: Yes Patient assessed for mobility or mobilized this visit?: Yes Consult to Physical Therapy [CONS] Routine Comment: Evaluate, develop and implement POC Reason for Consult: fall Does patient have active BEDREST order?: No Is patient medically & hemodynamically stable?: Yes Patient assessed for mobility or mobilized this visit?: Yes Consult to Irrigating Pump Operator [CONS] Routine Reason for SW Consult: placement Discharging clinician: Primo Smyth Anticipated date of discharge: 05/31/18 - Constitutional Vitals: Temp Pulse Resp BP Pulse Ox 98.3 F 70 14 166/91 93 05/31/18 05:24 05/31/18 05:24 05/31/18 05:24 05/31/18 05:24 05/31/18 05:24 General appearance: Present: cooperative, A&O X 3, pleasant Exam: CONSTITUTIONAL: aox3, NAD EYES EOMI, sclera clear, bruise above right eye RESPIRATORY: No accessory muscle use, bilateral basilar crackles to auscultation , no wheezing, CTAB CARDIOVASCULAR: Regular heart rate, normal S1 and S2, no murmurs GASTROINTESTINAL: NTND, no mass MUSCULOSKELETAL: no edema SKIN: Skin warm and dry, no rashes, no open wound. - Patient Status Disposition: Home Health Service Condition: Fair Overall status at discharge: patient is progressing back to baseline - Discharge Instructions Follow Up With: Marcela Bass BASKET PATCHER [Primary Care Provider] - - Diet and Activity Activity: as per physical therapy, increase activity as tolerated Diet: diabetic diet, low fat, low cholesterol
--- NOTE | 2018-05-31 11:32 | Physician Discharge Referral ---
ExtendedCare Referral Info Transfer To: [facility] Provider in Charge after Transfer: PCP Institutional Level of Care: Skilled - Diagnosis (1) Fall Priority: Primary Status: Acute (2) UTI (urinary tract infection) Priority: Secondary Status: Acute (3) Nasal bone fracture Priority: Secondary Status: Acute (4) DVT prophylaxis Priority: Secondary Status: Acute (5) Diabetes Priority: Secondary Status: Chronic (6) Hypertension Priority: Secondary Status: Chronic Prognosis: Fair Aware of Diagnosis: Patient Aware of Prognosis: Patient - Transfer Medications Prescriptions: Cephalexin [Keflex] 250 mg PO DAILY 5 Days #10 capsule Home Medications: Aspirin [Lo-Dose Aspirin EC] 81 mg PO DAILY 05/29/18 [History] Cyanocobalamin (Vitamin B-12) [Vitamin B-12] 1,000 mcg PO DAILY 05/29/18 [ History] Escitalopram [Lexapro] 10 mg PO DAILY 05/29/18 [History] Glimepiride [Amaryl] 4 mg PO BID 05/29/18 [History] Lisinopril [Zestril] 40 mg PO DAILY 05/29/18 [History] Metoprolol Succinate [Toprol Xl] 25 mg PO DAILY 05/29/18 [History] Montelukast [Singulair] 10 mg PO DAILY 05/29/18 [History] Omeprazole [PriLOSEC] 40 mg PO DAILY 05/29/18 [History] SitaGLIPtin [Januvia] 100 mg PO DAILY 05/29/18 [History] Cephalexin [Keflex] 250 mg PO DAILY 5 Days #10 capsule 05/31/18 [Rx] Allergies/Adverse Reactions: 3 Allergy/AdvReac Type Severity Reaction Status Date / Time "some steroids" Allergy See Uncoded 05/29/18 14:21 Comments - Respiratory Orders None Smoking Cessation: Smoking cessation has been advised. For more information, call the [place] Tobacco Quit Line at 5-142-PBFX-NOW. - Advance Directives Code Status: DNR-Arrest/Don't Intubate - Mobility Orders Chair, Ambulate - Rehabiliation Orders Rehab Potential: Fair Rehab Orders: Evaluation for Physical Therapy, Evaluation for Occupational Therapy - Diet Orders Cardiac CERTIFICATION: I certify that the transfer of the above named patient to an Extended Care Facility is necessary for the continuing treatment of the diagnosis listed. The above information is true and accurate reflection of patient's current condition. Confidential - Redisclosure prohibited without a patient's written consent.
--- NOTE | 2018-05-31 11:35 | Discharge Summary ---
<Primo Smyth S - Last Filed: 05/31/18 11:33> - NOTES TO OUTPATIENT PROVIDER Notes to Outpatient Provider: Follow up for nasal bone fx is symptomatic Date of Encounter: 05/31/18 Time of Encounter: 11:33 - Discharge Diagnosis (1) Fall Priority: Primary Status: Acute Qualifiers: Encounter type: initial encounter Qualified Code(s): W19.XXXA - Unspecified fall, initial encounter (2) UTI (urinary tract infection) Priority: Secondary Status: Acute Qualifiers: Urinary tract infection type: acute cystitis Hematuria presence: without hematuria Qualified Code(s): N30.00 - Acute cystitis without hematuria (3) Nasal bone fracture Priority: Secondary Status: Acute Qualifiers: Encounter type: initial encounter Fracture type: closed Qualified Code(s) : S02.2XXA - Fracture of nasal bones, initial encounter for closed fracture (4) Diabetes Priority: Secondary Status: Chronic Qualifiers: Diabetes mellitus type: type 2 Diabetes mellitus long term acute care registered nurse insulin use: without usp use Diabetes mellitus complication status: without complication Qualified Code(s): E11.9 - Type 2 diabetes mellitus without complications (5) Hypertension Priority: Secondary Status: Chronic Qualifiers: Hypertension type: essential hypertension Qualified Code(s): I10 - Essential (primary) hypertension (6) DVT prophylaxis Priority: Secondary Status: Acute Hospital course: Ms. Tavares is a 88 year old female admitted 05/29/18. She has PMH hx of hypertension, DM. She lives alone at home, she presented for a fall. Found to have a UTI and was treated with IV rocephin for 2 days. PTOT evaluated the pt and discussed placement at ECF, social work talked to pt as well and she is in agreement to going to an ECF. Workup for acute process was all negative -found to have a nasal bone fx -negative C-spine shoulder x-ray did not show fracture. -Chest x-ray was negative for acute cardiopulmonary process -ECHO showed an LVEF 60-65%, no significant valvular dysfxn detected, no evidence of pHTN, atypical septal motion consistent with BBB. She has a hx of multiple falls and has had a previous nasal bone fx in the past. Pt will be discharged today to [facility]. Tx for 5 more days with 250mg Keflex PO BID. Pt is stable at this time without c/o chest pain, N/V/D, SOB, or abdominal pain. Pt has no acute concerns at this time. Discharge discussed with: patient, nurse, social work Time spent discussing smoking cessation with patient: 3 to 10 minutes - Time Spent with Patient Total time spent providing and/or coordinating discharge services: Less than 30 minutes - Discharge Medications Prescriptions: Cephalexin [Keflex] 250 mg PO DAILY 5 Days #10 capsule Home Medications: Aspirin [Lo-Dose Aspirin EC] 81 mg PO DAILY 05/29/18 [History] Cyanocobalamin (Vitamin B-12) [Vitamin B-12] 1,000 mcg PO DAILY 05/29/18 [ History] Escitalopram [Lexapro] 10 mg PO DAILY 05/29/18 [History] Glimepiride [Amaryl] 4 mg PO BID 05/29/18 [History] Lisinopril [Zestril] 40 mg PO DAILY 05/29/18 [History] Metoprolol Succinate [Toprol Xl] 25 mg PO DAILY 05/29/18 [History] Montelukast [Singulair] 10 mg PO DAILY 05/29/18 [History] Omeprazole [PriLOSEC] 40 mg PO DAILY 05/29/18 [History] SitaGLIPtin [Januvia] 100 mg PO DAILY 05/29/18 [History] Cephalexin [Keflex] 250 mg PO DAILY 5 Days #10 capsule 05/31/18 [Rx] Allergies/Adverse Reactions: 3 Allergy/AdvReac Type Severity Reaction Status Date / Time "some steroids" Allergy See Uncoded 05/29/18 14:21 Comments Date of admission: 05/29/18 14:41 Primary care physician: Marcela Bass CNP Consults: 05/29/18 15:03 Consult to Occupational Therapy [CONS] Routine Comment: Evaluate, develop and implement POC Reason for Consult: fall Does patient have active BEDREST order?: No Is patient medically & hemodynamically stable?: Yes Patient assessed for mobility or mobilized this visit?: Yes Consult to Physical Therapy [CONS] Routine Comment: Evaluate, develop and implement POC Reason for Consult: fall Does patient have active BEDREST order?: No Is patient medically & hemodynamically stable?: Yes Patient assessed for mobility or mobilized this visit?: Yes Consult to Transportation Lead [CONS] Routine Reason for SW Consult: placement Discharging clinician: Primo Smyth Anticipated date of discharge: 05/31/18 - Constitutional Vitals: Temp Pulse Resp BP Pulse Ox 98.2 F 74 14 164/73 92 05/31/18 10:46 05/31/18 10:46 05/31/18 10:46 05/31/18 10:46 05/31/18 10:46 General appearance: Present: cooperative, A&O X 3, pleasant Exam: general - aox3, NAD cardio -rrr, s1s2, cta, no MRG lungs - ctab no weeze abd - NTND no rebound or guarding skin - intact extremities - no edema - Patient Status Disposition: Transfer SNF Condition: Fair Functional capacity at discharge: uses cane/walker Overall status at discharge: patient is progressing back to baseline - Discharge Instructions Follow Up With: Marcela Bass CNP [Primary Care Provider] - - Diet and Activity Activity: increase activity as tolerated Diet: diabetic diet, low fat, low cholesterol <Lizette Paz - Last Filed: 05/31/18 13:57> Date of Encounter: 05/31/18 - Discharge Diagnosis (1) UTI (urinary tract infection) Status: Acute Qualifiers: Urinary tract infection type: acute cystitis Hematuria presence: without hematuria Qualified Code(s): N30.00 - Acute cystitis without hematuria (2) Fall Status: Acute Qualifiers: Encounter type: initial encounter Qualified Code(s): W19.XXXA - Unspecified fall, initial encounter (3) Diabetes Status: Chronic Qualifiers: Diabetes mellitus type: type 2 Diabetes mellitus usp insulin use: without usp use Diabetes mellitus complication status: without complication Qualified Code(s): E11.9 - Type 2 diabetes mellitus without complications (4) Hypertension Status: Chronic Qualifiers: Hypertension type: essential hypertension Qualified Code(s): I10 - Essential (primary) hypertension (5) Nasal bone fracture Status: Acute Qualifiers: Encounter type: initial encounter Fracture type: closed Qualified Code(s) : S02.2XXA - Fracture of nasal bones, initial encounter for closed fracture (6) DVT prophylaxis Status: Acute Hospital course: Ms. Tavares is a 88 year old female - Time Spent with Patient Total time spent providing and/or coordinating discharge services: Date of admission: 05/29/18 14:41 Primary care physician: Marcela Bass CNP Consults: 05/29/18 15:03 Consult to Occupational Therapy [CONS] Routine Comment: Evaluate, develop and implement POC Reason for Consult: fall Does patient have active BEDREST order?: No Is patient medically & hemodynamically stable?: Yes Patient assessed for mobility or mobilized this visit?: Yes Consult to Physical Therapy [CONS] Routine Comment: Evaluate, develop and implement POC Reason for Consult: fall Does patient have active BEDREST order?: No Is patient medically & hemodynamically stable?: Yes Patient assessed for mobility or mobilized this visit?: Yes Consult to Transportation Lead [CONS] Routine Reason for SW Consult: placement - Constitutional Vitals: Temp Pulse Resp BP Pulse Ox 98.2 F 74 14 164/73 92 05/31/18 10:46 05/31/18 10:46 05/31/18 10:46 05/31/18 10:46 05/31/18 10:46 - Attending Attestation I examined this patient and my medical decision-making was reviewed with the Resident Physician Dr. Smyth. I agree with the documented findings, disposition and treatment plan as described except to the extent set forth below. Ms. Tavares is a 88 year old female with known PMH of HTN, DM2 who lives by herself, was brought into ER y/d with a fall admitted 05/29/18. She has PMH hx of hypertension, DM. She lives alone at home, she presented for a fall. She found to have a UTI and was treated with IV rocephin for 2 days. Pt is alert, awake and O x 3. Stats she is feeling better. Denied any CP. Pt was evaluated by PT / OT , who recommend ECF placement. Pt is medically stable to d/c ECF whenever she has bed ready/
[2018-05-31] MEDS: cefTRIAXone 1,000 MG in Water for inj. (sterile) 20 ML 10 ML IVP SCH ×2 (17:01→19:53)
[2018-06-01] MEDS: *HR* Heparin 5,000 UNIT/ML VIAL SQ SCH ×2 (06:33→15:05)
[2018-06-01] MEDS: Insulin LISPRO 300 UNITS/3 ML VIAL SQ SCH ×3 (07:28→17:25)
--- NOTE | 2018-06-01 08:32 | Internal Med Progress Note ---
<Primo Smyth S - Last Filed: 06/01/18 08:29> Hospitalist Progress Note - Encounter Date of Encounter: 06/01/18 Time of Encounter: 08:30 - Subjective Interval History: Ms. Tavares is a 88 year old female admitted 05/29/18. She has PMH hx of hypertension, DM. She lives alone at home, she presented for a fall. Found to have a UTI and was treated with IV rocephin for 2 days. PTOT evaluated the pt and discussed placement at ECF, social work talked to pt as well and she is in agreement to going to an ECF. Pt is stable for discharge today, pending placement at ECF. Workup for acute process was all negative -found to have a nasal bone fx -negative C-spine shoulder x-ray did not show fracture. -Chest x-ray was negative for acute cardiopulmonary process -ECHO showed an LVEF 60-65%, no significant valvular dysfxn detected, no evidence of pHTN, atypical septal motion consistent with BBB. Seen at bedside. Pt has no complaints. Denies chest pain, SOB, N/V/D, abd pain. - Exam Vitals: Temp Pulse Resp BP Pulse Ox 98.5 F 75 18 190/72 93 06/01/18 07:16 06/01/18 07:16 06/01/18 07:16 06/01/18 07:16 06/01/18 07:16 Exam: general - aox3, NAD cardio -rrr, s1s2, cta, no MRG lungs - ctab no weeze abd - NTND no rebound or guarding skin - intact extremities - no edema - Assessment and Plan (1) Fall Current Visit: Yes Status: Acute Assessment and Plan: Pt presented after fall, has a hx of multiple falls over the last year -denies LOC but hit her eye Workup for acute process was all negative -found to have a nasal bone fx -negative C-spine shoulder x-ray did not show fracture. -Chest x-ray was negative for acute cardiopulmonary process -ECHO showed an LVEF 60-65%, no significant valvular dysfxn detected, no evidence of pHTN, atypical septal motion consistent with BBB. Plan: -pt to be discharged today to [facility] placement -pt is stable -follow up as an outpatient for nasal bone fx if she becomes symptomatic (2) UTI (urinary tract infection) Current Visit: Yes Status: Acute Assessment and Plan: Pt had (+) UA for leukocyte esterase, 5-15 RBC, TNTC WBC -treated with rocephin IV Plan: -discharge the pt on Keplhex for 5days 250mg PO BID (3) Nasal bone fracture Current Visit: Yes Status: Acute Assessment and Plan: See plan as above for falls. Face CT showed nasal bone fx -pt remains asmptomatic at this time -denies eye pain with movement, loss of vision (4) Diabetes Current Visit: No Status: Chronic Assessment and Plan: Glucose this AM 151 -low dose sliding scale (5) Hypertension Current Visit: No Status: Chronic Assessment and Plan: BP 190/72 -hydralazine 10mg IVP q6hr prn HTN -Lisinopril 25mg PO gali -toprol 25mg PO maynor (6) DVT prophylaxis Current Visit: Yes Status: Acute Assessment and Plan: heparin sq - Time Spent with Patient Total time spent is greater than 50% in coordination of care (as documented) at patient's floor/unit and/or counseling patient: less than 15 minutes Plan of Care Discussed with: patient Internal Medicine: Result - Labs CBC & Chem 7: 05/30/18 04:16 05/31/18 05:39 - ABG Interpretation ABG results: PT/INR, D-dimer PT 11.7 Seconds (9.4-12.1) 05/29/18 12:26 - VTE Documentation of Mechanical Device: Intermittent pneumatic compression device Consult Discharge Plan - Plan Referrals: Marcela Bass [employer] [Primary Care Provider] - Prescriptions: Cephalexin [Keflex] 250 mg PO BID #10 capsule <Lizette Paz - Last Filed: 06/01/18 16:31> Hospitalist Progress Note - Encounter Date of Encounter: 06/01/18 - Exam Vitals: Temp Pulse Resp BP Pulse Ox 98.0 F 64 16 161/71 95 06/01/18 11:58 06/01/18 11:58 06/01/18 11:58 06/01/18 11:58 06/01/18 11:58 - Assessment and Plan (1) UTI (urinary tract infection) Current Visit: Yes Status: Acute (2) Fall Current Visit: Yes Status: Acute (3) Diabetes Current Visit: No Status: Chronic (4) Hypertension Current Visit: No Status: Chronic (5) Nasal bone fracture Current Visit: Yes Status: Acute (6) DVT prophylaxis Current Visit: Yes Status: Acute - Time Spent with Patient Total time spent is greater than 50% in coordination of care (as documented) at patient's floor/unit and/or counseling patient: Internal Medicine: Result - Labs CBC & Chem 7: 05/30/18 04:16 05/31/18 05:39 - ABG Interpretation ABG results: PT/INR, D-dimer PT 11.7 Seconds (9.4-12.1) 05/29/18 12:26 - Attending Attestation I examined this patient and my medical decision-making was reviewed with the Resident Physician Dr. Smyth. I agree with the documented findings, disposition and treatment plan as described except to the extent set forth below. Ms. Tavares is a 88 year old female with known PMH of HTN, DM2 who lives by herself, was brought into ER y/d with a fall admitted 05/29/18. She has PMH hx of hypertension, DM. She lives alone at home, she presented for a fall. She found to have a UTI and was treated with IV rocephin. Pt is alert, awake and O x 3. Stats she is feeling better. Denied any CP. Pt was evaluated by PT / OT , who recommend ECF placement. Pt is medically stable to d/c ECF today. No events over night. Gen: A, A< O x 3 Chest: Diminished BS b/l <Primo Smyth S - Last Filed: 06/01/18 08:29> (1) Fall Qualifiers: Encounter type: initial encounter Qualified Code(s): W19.XXXA - Unspecified fall, initial encounter (2) UTI (urinary tract infection) Qualifiers: Urinary tract infection type: acute cystitis Hematuria presence: without hematuria Qualified Code(s): N30.00 - Acute cystitis without hematuria (3) Nasal bone fracture Qualifiers: Encounter type: initial encounter Fracture type: closed Qualified Code(s): S02.2XXA - Fracture of nasal bones, initial encounter for closed fracture (4) Diabetes Qualifiers: Diabetes mellitus type: type 2 Diabetes mellitus outside deliverer insulin use: without outside deliverer use Diabetes mellitus complication status: without complication Qualified Code(s): E11.9 - Type 2 diabetes mellitus without complications (5) Hypertension Qualifiers: Hypertension type: essential hypertension Qualified Code(s): I10 - Essential (primary) hypertension <Lizette Paz - Last Filed: 06/01/18 16:31> (1) UTI (urinary tract infection) Qualifiers: Urinary tract infection type: acute cystitis Hematuria presence: without hematuria Qualified Code(s): N30.00 - Acute cystitis without hematuria (2) Fall Qualifiers: Encounter type: initial encounter Qualified Code(s): W19.XXXA - Unspecified fall, initial encounter (3) Diabetes Qualifiers: Diabetes mellitus type: type 2 Diabetes mellitus intermediate insulin use: without intermediate use Diabetes mellitus complication status: without complication Qualified Code(s): E11.9 - Type 2 diabetes mellitus without complications (4) Hypertension Qualifiers: Hypertension type: essential hypertension Qualified Code(s): I10 - Essential (primary) hypertension (5) Nasal bone fracture Qualifiers: Encounter type: initial encounter Fracture type: closed Qualified Code(s): S02.2XXA - Fracture of nasal bones, initial encounter for closed fracture
[2018-06-01] MEDS: Aspirin Enteric Coated 81 MG Tablet PO SCH (09:36)
[2018-06-01] MEDS: *HR* SitaGLIPtin 25 MG TABLET PO SCH (09:36)
[2018-06-01] MEDS: Cyanocobalamin (B-12) 1,000 MCG TABLET PO SCH (09:36)
[2018-06-01] MEDS: *HR* Glimepiride 4 MG TABLET PO SCH (09:36)
[2018-06-01] MEDS: Lisinopril 20 MG TABLET PO SCH (09:37)
[2018-06-01] MEDS: Metoprolol XL (24 HR) Succ 25 MG TAB.ER.24H PO SCH (09:37)
[2018-06-01] MEDS: Insulin DETEMIR 100 UNIT/ML X5UNITS SQ SCH (10:01)
[2018-06-01] MEDS: Acetaminophen 325 MG TABLET PO PRN (10:30)
[2018-06-01 17:24] VITALS: BP 162/66
[2018-06-01] MEDS: cefTRIAXone 1,000 MG in Water for inj. (sterile) 20 ML 10 ML IVP SCH (17:26)
--- NOTE | 2018-06-01 22:12 | Electrocardiograph Report ---
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
== END 2018-06-01 18:28 ==
LOC: 3ANU 11:02 → EMEROOARM 11:02 → SUATTDRO 14:41 → 3ANU 15:02
PROVIDERS: ADMIT Student in an Organized Health Care Education/Training Program; ATTEND Family Medicine

== ENCOUNTER 2018-07-20 11:09 | Observation (INO) ==
[2018-07-20 12:09] LABS: Bilirubin,Urine Negative (Negative); Blood,Urine Negative (Negative); Clarity,Urine Clear (Clear); Color,Urine Yellow (Yellow); Glucose,Urine (UA) 250 mg/dL (Normal); Ketones,Urine Negative (Negative); Leukocyte Esterase,Urine Negative (Negative); Nitrite,Urine Negative (Negative); PH,Urine 7.5 pH Units (5.0-8.0); Protein,Urine 100 mg/dL (Neg-Trace); Specific Gravity,Urine 1.018 (1.010-1.025); Urobilinogen,Urine Normal (Normal)
[2018-07-20 12:11] LABS: Bacteria,Urine None Seen per hpf (None-Few); Hyaline Casts,Urine None Seen per lpf (None-Few); RBC,Urine 0-3 per hpf (0-3); WBC,Urine 0-3 per hpf (0-3)
[2018-07-20 12:14] LABS: Squamous Epithelial Cell,Urine Many per lpf (None-Few)
--- NOTE | 2018-07-20 12:36 | Emergency Department Note ---
Disposition Clinical Impression: Head trauma, Fall Disposition: Admitted As Inpatient Condition: Fair Time of Disposition: 12:40 Fall HPI - General Chief Complaint: ED Fall Stated Complaint: Falls pain all over Time Seen by Provider: 07/20/18 11:42 Source: family, EMS Mode of arrival: ambulatory Limitations: no limitations Nursing Notes Reviewed: Yes Vital Signs Reviewed: Yes - History of Present Illness HPI Narrative: 88-year-old female presents emergency Department after a fall at home. Patient is ambulating without her walker. She states she tripped over her feet. She was unable to stand. She called EMS who helped stand her up. This occurred last night as well. Patient denies fever, chills, nausea, vomiting. Urine is very clear sitting on the room counter during the evaluation. Patient denied chest pain or shortness of breath or other near syncopal symptoms prior to the fall. This is occurred multiple times in the past. - Related Data Home Medications Medication Instructions Recorded Confirmed Aspirin [Lo-Dose Aspirin EC] 81 mg PO DAILY 05/29/18 05/29/18 Cyanocobalamin (Vitamin B-12) 1,000 mcg PO DAILY 05/29/18 05/29/18 [Vitamin B-12] Escitalopram [Lexapro] 10 mg PO DAILY 05/29/18 05/29/18 Glimepiride [Amaryl] 4 mg PO BID 05/29/18 07/20/18 Lisinopril [Zestril] 40 mg PO DAILY 05/29/18 07/20/18 Metoprolol Succinate [Toprol Xl] 25 mg PO DAILY 05/29/18 07/20/18 Montelukast [Singulair] 10 mg PO DAILY 05/29/18 05/29/18 Omeprazole [PriLOSEC] 40 mg PO DAILY 05/29/18 07/20/18 SitaGLIPtin [Januvia] 100 mg PO DAILY 05/29/18 07/20/18 Donepezil [Aricept] 5 mg PO HS 07/20/18 07/20/18 Previous Rx's Medication Instructions Recorded Cephalexin [Keflex] 250 mg PO BID #10 capsule 05/31/18 Allergies Allergy/AdvReac Type Severity Reaction Status Date / Time "some steroids" Allergy See Uncoded 05/29/18 14:21 Comments All systems ED: reviewed and negative except as stated. Review of Systems: As Per HPI Fall PMH - Past Medical History Medical history: Reports: dementia, diabetes, hypertension 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, Chronic Gait Instabilites Surgical history: Reports: other Psychiatric history: Reports: no psych history - Social History Smoking Status: Never smoker Alcohol use: Reports: none Drug use: Reports: none Physical Exam General: Alert and in no acute distress Skin: Warm, dry, intact Head: Normocephalic and atraumatic Neck: Supple, trachea midline and no tenderness Cardiovascular: RRR, no murmur, normal perfusion Respiratory: CTAB, no wheezing, cough, or respiratory distress Musculoskeletal: Normal strength, no tenderness, swelling or deformity GI: Soft, nontender, nondistended. Bowel sounds present Neuro: A&O to person, place and situation. No focal deficits noted on exam Psychiatric: cooperative and appropriate mood and affect. - General Limitations: age General appearance: alert Course Vital Signs Temperature 98.3 F 07/20/18 11:13 Pulse Rate 76 07/20/18 11:13 Respiratory Rate 12 07/20/18 11:13 Blood Pressure 212/86 07/20/18 11:13 O2 Sat by Pulse Oximetry 95 07/20/18 11:13 Temperature 98.3 F 07/20/18 11:13 Pulse Rate 70 07/20/18 13:59 Respiratory Rate 24 07/20/18 13:59 Blood Pressure 193/106 07/20/18 13:59 O2 Sat by Pulse Oximetry 95 07/20/18 13:59 Oxygen Delivery Oxygen Delivery Room Air Fall - MDM Narrative Medical decision making narrative: Patient had a mechanical fall at home. CT of the head and neck did not show evidence of acute fracture or intracranial hemorrhage. CT of the chest and pelvis does not show acute fracture. Pt unable to ambulate. I consulted social work lecturer who recommended admission to the hospital for placement at extended care facility. - Medical Records Medical records reviewed: Yes I reviewed the patient's medical records. - Lab Data Lab results reviewed: Yes I reviewed the patient's lab results. Result diagrams: 07/20/18 11:40 07/20/18 11:40 Lab Results 07/20/18 07/20/18 07/20/18 Range/Units 11:29 11:40 11:40 WBC 7.7 (4.3-11.1) K/mcL RBC 5.29 H (3.82-4.97) M/mcL Hgb 15.0 (11.5-15.4) g/dL Hct 44.6 (35.3-44.9) % MCV 84.3 (83.0-100.0) fL MCH 28.4 (28.0-33.3) pg MCHC 33.6 (31.6-35.5) g/dL RDW 14.3 (11.5-14.5) % Plt Count 213 (140-400) K/mcL MPV 9.6 (9.4-12.4) fL Immature Gran % 0.4 (0-4) % Seg Neutrophils % 66.9 % Lymphocytes % 22.9 % Monocytes % 7.6 % Eosinophils % 1.6 % Basophils % 0.6 % Neutrophils # 5.2 (1.6-8.9) K/mcL Lymphocytes # 1.8 (0.6-4.6) K/mcL Monocytes # 0.6 (0.0-1.3) K/mcL Eosinophils # 0.1 (0.0-0.6) K/mcL Basophils # 0.1 (0.0-0.2) K/mcL Sodium 131 L (136-145) mEq/L Potassium 3.7 (3.5-5.1) mEq/L Chloride 98 (98-107) mEq/L Carbon Dioxide 23 (23-29) mEq/L BUN 15 (8-23) mg/dL Creatinine 0.72 (0.60-1.20) mg/dL Est GFR ( Amer) > 60 (> 60) Est GFR (Non-Af Amer) > 60 (> 60) BUN/Creatinine Ratio 21 (6-26) Glucose 214 H (70-105) mg/dL Calculated Osmolality 279 L (280-300) Calcium 9.1 (8.6-10.3) mg/dL Creatine Kinase 49 (30-223) Units/L Troponin I < 0.03 (< 0.04) ng/mL Urine Color Yellow (Yellow) Urine Clarity Clear (Clear) Urine pH 7.5 (5.0-8.0) pH Units Ur Specific [place] 1.018 (1.010-1.025) Urine Protein 100 H (Neg-Trace) mg/dL Urine Glucose (UA) 250 H (Normal) mg/dL Urine Ketones Negative (Negative) mg/dL Urine Blood Negative (Negative) Urine Nitrite Negative (Negative) Urine Bilirubin Negative (Negative) Urine Urobilinogen Normal (Normal) mg/dL Ur Leukocyte Esterase Negative (Negative) Urine Microscopic RBC 0-3 (0-3) per hpf Urine Microscopic WBC 0-3 (0-3) per hpf Ur Squamous Epith Cells Many H (None-Few) per lpf Urine Bacteria None Seen (None-Few) per hpf Hyaline Casts None Seen (None-Few) per lpf Ur Culture Indicated? NO (NO) - Radiology Data Radiology results reviewed: Yes I reviewed the patient's radiology results.
[2018-07-20 14:32] LABS: Basophils # 0.1 K/mcL (0.0-0.2); Basophils % 0.6 %; Eosinophils # 0.1 K/mcL (0.0-0.6); Eosinophils % 1.6 %; Hematocrit 44.6 % (35.3-44.9); Immature Granulocytes % 0.4 % (0-4); Lymphocytes # 1.8 K/mcL (0.6-4.6); Lymphocytes % 22.9 %; Mean Corpuscular HGB Conc 33.6 g/dL (31.6-35.5); Mean Corpuscular Hemoglobin 28.4 pg (28.0-33.3); Mean Corpuscular Volume 84.3 fL (83.0-100.0); Mean Platelet Volume 9.6 fL (9.4-12.4); Monocytes # 0.6 K/mcL (0.0-1.3); Monocytes % 7.6 %; Neutrophils # 5.2 K/mcL (1.6-8.9); Platelet Count 213 K/mcL (140-400); Red Blood Count 5.29 M/mcL (3.82-4.97); Red Cell Distribution Width 14.3 % (11.5-14.5); Segmented Neutrophils % 66.9 %
[2018-07-20 14:42] LABS: Troponin I < 0.03 ng/mL (< 0.04)
[2018-07-20 14:48] LABS: BUN/Creatinine Ratio 21 (6-26); Blood Urea Nitrogen 15 mg/dL (8-23); Calcium 9.1 mg/dL (8.6-10.3); Carbon Dioxide 23 mEq/L (23-29); Chloride 98 mEq/L (98-107); Creatine Kinase 49 Units/L (30-223); Glucose 214 mg/dL (70-105); Osmolality,Calculated 279 (280-300); Potassium 3.7 mEq/L (3.5-5.1); Sodium 131 mEq/L (136-145); eGFR For Non-African Americans > 60 (> 60)
[2018-07-20] MEDS ORDERED: Naloxone 0.4 MG/ML INJ IVP PRN (14:50)
[2018-07-20] MEDS ORDERED: Acetaminophen 325 MG TABLET PO PRN (14:50)
[2018-07-20] MEDS ORDERED: *HR* OxyCODONE Immed Rel 5 MG TABLET PO PRN (14:50)
[2018-07-20] MEDS ORDERED: traMADol 50 MG TABLET PO PRN (14:50)
[2018-07-20] MEDS ORDERED: *HR* Labetalol 20 MG/4 ML SYRINGE IVP PRN (14:53)
--- NOTE | 2018-07-20 15:17 | Internal Med History&Physical ---
Date of Encounter: 07/20/18 Time of Encounter: 15:00 Internal Medicine - H&P: HPI Chief complaint: fall Admitted From: Home History of present illness: Ms. Tavares is a 88 year old female with history of dementia, diabetes, hypertension, recurrent falls, presented to the ED after an episode of fall this morning. Occurred when she was trying to walk out of the bathroom, tripped over her foot, and landed on her left side hitting her left forehead. No LOC or prodromal symptoms including chest pain, palpitation, change in vision. Denies any focal weakness/numbness, slurring of speech, facial droop, or dysphagia. No fever/chills, soreness of breath, productive cough, N/V, abdominal pain, dysuria, or change in bowel habits. Denies any sick contacts. In the ED, patient was afebrile and hemodynamically stable except for elevated blood press ure of 212/86. Labwork was unremarkable. Urinalysis did not show any leukocyte esterase or nitrite. Imaging studies including head/cervical spine CT and chest/pelvis x-ray did not show any sequelae of traumatic injury. Of note, she had recently similar episode in May when she suffered nasal bone fracture. She was admitted for further management. Past Med Surg Social Fam HX - Past Medical History Attestation: Yes The following information was validated with the patient. Medical history: dementia, diabetes, hypertension Psychiatric history: no psych history - Past Surgical History Surgical History: other - Social History Smoking Status: Never smoker Smokeless Tobacco Status: No Alcohol use: none Drug use: none Internal Medicine - H&P: Meds Aspirin [Lo-Dose Aspirin EC] 81 mg PO DAILY 05/29/18 [History] Cyanocobalamin (Vitamin B-12) [Vitamin B-12] 1,000 mcg PO DAILY 05/29/18 [History] Escitalopram [Lexapro] 10 mg PO DAILY 05/29/18 [History] Glimepiride [Amaryl] 4 mg PO BID 05/29/18 [History] Lisinopril [Zestril] 40 mg PO DAILY 05/29/18 [History] Metoprolol Succinate [Toprol Xl] 25 mg PO DAILY 05/29/18 [History] Montelukast [Singulair] 10 mg PO DAILY 05/29/18 [History] Omeprazole [PriLOSEC] 40 mg PO DAILY 05/29/18 [History] SitaGLIPtin [Januvia] 100 mg PO DAILY 05/29/18 [History] Cephalexin [Keflex] 250 mg PO BID #10 capsule 05/31/18 [Rx] Donepezil [Aricept] 5 mg PO HS 07/20/18 [History] Allergy/AdvReac Type Severity Reaction Status Date / Time "some steroids" Allergy See Uncoded 05/29/18 14:21 Comments All Systems PM: A 10-system review of systems was performed and is negative for pertinent findings except as documented above in the HPI. - Constitutional Vitals: Temp Pulse Resp BP Pulse Ox 98.3 F 70 24 193/106 95 07/20/18 11:13 07/20/18 13:59 07/20/18 13:59 07/20/18 13:59 07/20/18 13:59 Exam: General: Alert and oriented, not in acute distress. HEENT:EOMI, pupils equal, round and reactive. Cardiovascular:Normal S1 & S2, No JVD. Pulse regular. Lungs: clear to auscultation, no wheezes/rales Abdomen:Soft, non-tender, no rigidity. Extremities:No deformity or swelling Neurological:CN II-XII intact, power and sensation fully intact in all 4 limbs. No cerebellar signs, pronator drift -ve, Babinski downgoing bilaterally Skin:Normal color, no rash, no lesions. Pulses:Carotid and radial pulses normal +2. Rest of the physical exam is non contributory Internal Med - H&P Results - Labs CBC & Chem 7: 07/20/18 11:40 07/20/18 11:40 Labs: Short CBC 07/20/18 Range/Units 11:40 WBC 7.7 (4.3-11.1) K/mcL Hgb 15.0 (11.5-15.4) g/dL Hct 44.6 (35.3-44.9) % Plt Count 213 (140-400) K/mcL Neutrophils # 5.2 (1.6-8.9) K/mcL BMP 07/20/18 11:40 Sodium 131 L Potassium 3.7 Chloride 98 Carbon Dioxide 23 BUN 15 Creatinine 0.72 Glucose 214 H Calcium 9.1 Cardiac Enzymes 07/20/18 Range/Units 11:40 Troponin I < 0.03 (< 0.04) ng/mL Urine 07/20/18 Range/Units 11:29 Urine Color Yellow (Yellow) Urine Clarity Clear (Clear) Urine pH 7.5 (5.0-8.0) pH Units Ur Specific [place] 1.018 (1.010-1.025) Urine Protein 100 H (Neg-Trace) mg/dL Urine Glucose (UA) 250 H (Normal) mg/dL - Impressions ITS Impressions Cervical Spine CT 07/20/18 11:59 IMPRESSION: 1. No evidence of an acute fracture in the cervical spine. D/ / 07/20/2018 12:54:21 Lazaro Donis MD / [email or web address] Interpreting Provider: Lazaro Donis MD Chest X-Ray 07/20/18 11:59 IMPRESSION: Poor inspiration. Probable left basilar atelectasis. D/ / Jarrett Pineda / Jarrett Pineda Interpreting Provider: Jarrett Pineda Head CT 07/20/18 11:59 IMPRESSION: No acute intracranial abnormality. D/ / 07/20/2018 12:56:58 Ethan Fontenot MD / [email or web address] Interpreting Provider: Ethan Fontenot MD Pelvis X-Ray 07/20/18 11:59 IMPRESSION: No acute osseous abnormality of the pelvis. D/ / Rony Marinelli MD / Rony Marinelli MD Interpreting Provider: Rony Marinelli MD - Assessment and plan (1) Hypertensive urgency Current Visit: Yes Status: Acute Assessment and plan: Presented to the ED after an episode of fall, noted to have significantly elevated blood pressure of 212/86. On lisinopril and Toprol-XL at home. Continue IV labetalol when necessary may need additional agent for BP or switch metoprolol to coreg for better control (2) Fall Current Visit: Yes Status: Acute Assessment and plan: Appears to be mechanical in nature, no evidence of traumatic sequelae noted on the imaging studies. PT/OT Social work consult for placement Qualifiers: Encounter type: initial encounter (3) Dementia Current Visit: Yes Status: Acute Assessment and plan: Resume home meds In view of frequent episodes of fall, may require higher level of care upon discharge. Qualifiers: Dementia type: unspecified type Dementia behavioral disturbance: without behavioral disturbance Qualified Code(s): F03.90 - Unspecified dementia without behavioral disturbance (4) Diabetes Current Visit: No Status: Chronic Assessment and plan: On Amaryl and Januvia at home. Hold off ADA diet, Accu-Checks AC+HS Low-dose sliding scale Qualifiers: Diabetes mellitus type: type 2 Diabetes mellitus buttermaker continuous churn insulin use: without longterm use Diabetes mellitus complication status: without complication Qualified Code(s): E11.9 - Type 2 diabetes mellitus without complications (5) DVT prophylaxis Current Visit: No Status: Acute Assessment and plan: Sub-cutaneous heparin - Time Spent With Patient Total time spent is greater than 50% in coordination of care (as documented) at patient's floor/unit and/or counseling patient:
[2018-07-20] MEDS ORDERED: *HR* Dextrose 50 % in Water (Syg) 50 ML SYRINGE IVP PRN (15:22)
[2018-07-20] MEDS ORDERED: Dextrose Gel 15 GM/37.5 ML TUBE PO PRN ×2 (15:22)
[2018-07-20] MEDS ORDERED: D5% in Water 1,000 ML IVC PRN (15:22)
[2018-07-20] MEDS ORDERED: Baclofen 10 MG TABLET PO PRN (16:31)
[2018-07-20] MEDS: Insulin LISPRO 300 UNITS/3 ML VIAL SQ SCH ×2 (16:52→20:32)
[2018-07-20] MEDS: *HR* Heparin 5,000 UNIT/ML VIAL SQ SCH (18:13)
[2018-07-21 05:19] LABS: Hematocrit 39.6 % (35.3-44.9); Mean Corpuscular HGB Conc 33.6 g/dL (31.6-35.5); Mean Corpuscular Hemoglobin 28.5 pg (28.0-33.3); Mean Corpuscular Volume 84.8 fL (83.0-100.0); Mean Platelet Volume 9.4 fL (9.4-12.4); Platelet Count 190 K/mcL (140-400); Red Blood Count 4.67 M/mcL (3.82-4.97); Red Cell Distribution Width 14.2 % (11.5-14.5)
[2018-07-21 05:34] LABS: BUN/Creatinine Ratio 19 (6-26); Blood Urea Nitrogen 14 mg/dL (8-23); Calcium 8.9 mg/dL (8.6-10.3); Carbon Dioxide 22 mEq/L (23-29); Chloride 100 mEq/L (98-107); Glucose 237 mg/dL (70-105); Hemoglobin 13.3 g/dL (11.5-15.4); Osmolality,Calculated 284 (280-300); Potassium 3.4 mEq/L (3.5-5.1); Sodium 133 mEq/L (136-145); eGFR For Non-African Americans > 60 (> 60)
[2018-07-21] MEDS: *HR* Heparin 5,000 UNIT/ML VIAL SQ SCH ×2 (05:57→17:03)
--- NOTE | 2018-07-21 08:12 | Electrocardiograph Report ---
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
[2018-07-21] MEDS: Lisinopril 20 MG TABLET PO SCH (08:38)
[2018-07-21] MEDS: Insulin LISPRO 300 UNITS/3 ML VIAL SQ SCH ×4 (08:38→21:31)
[2018-07-21] MEDS: amLODIPine 5 MG TABLET PO SCH (08:38)
[2018-07-21] MEDS ORDERED: Metoprolol XL (24 HR) Succ 25 MG TAB.ER.24H PO SCH (09:00)
--- NOTE | 2018-07-21 11:33 | Internal Med Progress Note ---
Hospitalist Progress Note - Encounter Date of Encounter: 07/21/18 Time of Encounter: 10:30 - Subjective Interval History: Patient denies any chest pain, headache, blurring of vision, shortness of breath, or palpitation. Blood pressure also improved overnight. Notes from ED social media developer reviewed and it appears that patient has been falling often lately requiring multiple calls to EMS. - Exam Vitals: Temp Pulse Resp BP Pulse Ox 98.2 F 78 19 218/70 95 07/21/18 07:58 07/21/18 07:58 07/21/18 07:58 07/21/18 07:58 07/21/18 07:58 Exam: General: Alert and oriented, not in acute distress. Cardiovascular:Normal S1 & S2, No JVD. Pulse regular. Lungs: clear to auscultation, no wheezes/rales Abdomen:Soft, non-tender, no rigidity. Neurological:CN II-XII intact, power and sensation fully intact in all 4 limbs. No cerebellar signs, pronator drift -ve, Babinski downgoing bilaterally - Assessment and Plan (1) Hypertensive urgency Current Visit: Yes Status: Acute Assessment and Plan: Presented to the ED after an episode of fall, noted to have significantly elevated blood pressure On lisinopril and Toprol-XL at home. Will continue lisinopril but switch metoprolol to coreg 25mg BID add norvasc 5mg QD IV labetalol when necessary (2) Fall Current Visit: Yes Status: Acute Assessment and Plan: Appears to be mechanical in nature, multiple episodes lately requiring EMS' assistance. No evidence of traumatic sequelae noted on the imaging studies. PT/OT Social work consult for placement (3) Dementia Current Visit: Yes Status: Acute Assessment and Plan: Resume home meds In view of frequent episodes of fall, may require higher level of care upon discharge. (4) Diabetes Current Visit: No Status: Chronic Assessment and Plan: On Amaryl and Januvia at home. Hold off ADA diet, Accu-Checks AC+HS Low-dose sliding scale add low dose of levemir at HS (5) Hypokalemia Current Visit: Yes Status: Acute Assessment and Plan: replete (6) DVT prophylaxis Current Visit: No Status: Acute Assessment and Plan: Sub-cutaneous heparin - Time Spent with Patient Total time spent is greater than 50% in coordination of care (as documented) at patient's floor/unit and/or counseling patient: Plan of Care Discussed with: case management Internal Medicine: Result - Labs CBC & Chem 7: 07/21/18 04:41 07/21/18 04:41 Labs: Short CBC 07/20/18 07/21/18 Range/Units 11:40 04:41 WBC 7.7 6.9 (4.3-11.1) K/mcL Hgb 15.0 13.3 D (11.5-15.4) g/dL Hct 44.6 39.6 (35.3-44.9) % Plt Count 213 190 (140-400) K/mcL Neutrophils # 5.2 (1.6-8.9) K/mcL BMP 07/20/18 07/21/18 11:40 04:41 Sodium 131 L 133 L Potassium 3.7 3.4 L Chloride 98 100 Carbon Dioxide 23 22 L BUN 15 14 Creatinine 0.72 0.73 Glucose 214 H 237 H Calcium 9.1 8.9 Cardiac Enzymes 07/20/18 Range/Units 11:40 Troponin I < 0.03 (< 0.04) ng/mL Urine 07/20/18 Range/Units 11:29 Urine Color Yellow (Yellow) Urine Clarity Clear (Clear) Urine pH 7.5 (5.0-8.0) pH Units Ur Specific [place] 1.018 (1.010-1.025) Urine Protein 100 H (Neg-Trace) mg/dL Urine Glucose (UA) 250 H (Normal) mg/dL - Impressions Impressions Cervical Spine CT 07/20/18 11:59 IMPRESSION: 1. No evidence of an acute fracture in the cervical spine. D/ / 07/20/2018 12:54:21 Lazaro Donis MD / bcarter Interpreting Provider: Lazaro Donis MD Chest X-Ray 07/20/18 11:59 IMPRESSION: Poor inspiration. Probable left basilar atelectasis. D/ / Jarrett Pineda / Jarrett Pineda Interpreting Provider: Jarrett Pineda Head CT 07/20/18 11:59 IMPRESSION: No acute intracranial abnormality. D/ / 07/20/2018 12:56:58 Ethan Fontenot MD / ovidio Interpreting Provider: Ethan Fontenot MD Pelvis X-Ray 07/20/18 11:59 IMPRESSION: No acute osseous abnormality of the pelvis. D/ / Rony Marinelli MD / Rony Marinelli MD Interpreting Provider: Rony Marinelli MD Consult Discharge Plan - Plan Referrals: NONE,PCP [Primary Care Provider] - (2) Fall Qualifiers: Encounter type: initial encounter (3) Dementia Qualifiers: Dementia type: unspecified type Dementia behavioral disturbance: without behavioral disturbance Qualified Code(s): F03.90 - Unspecified dementia without behavioral disturbance (4) Diabetes Qualifiers: Diabetes mellitus type: type 2 Diabetes mellitus usp insulin use: without exterminator use Diabetes mellitus complication status: without complication Qualified Code(s): E11.9 - Type 2 diabetes mellitus without complications
[2018-07-21] MEDS: Cholecalciferol (D-3) 1,000 UNIT TABLET PO SCH (17:03)
[2018-07-21] MEDS ORDERED: Insulin DETEMIR 100 UNIT/ML X5UNITS SQ SCH (21:00)
[2018-07-22 04:17] LABS: BUN/Creatinine Ratio 25 (6-26); Blood Urea Nitrogen 19 mg/dL (8-23); Calcium 8.6 mg/dL (8.6-10.3); Carbon Dioxide 21 mEq/L (23-29); Chloride 100 mEq/L (98-107); Glucose 166 mg/dL (70-105); Magnesium 1.9 mg/dL (1.6-2.6); Osmolality,Calculated 278 (280-300); Sodium 131 mEq/L (136-145); eGFR For Non-African Americans > 60 (> 60)
[2018-07-22] MEDS: *HR* Heparin 5,000 UNIT/ML VIAL SQ SCH ×2 (06:07→16:36)
[2018-07-22] MEDS: Cholecalciferol (D-3) 1,000 UNIT TABLET PO SCH (08:22)
[2018-07-22] MEDS: amLODIPine 5 MG TABLET PO SCH (08:22)
[2018-07-22] MEDS: Insulin LISPRO 300 UNITS/3 ML VIAL SQ SCH ×3 (08:22→15:56)
[2018-07-22] MEDS: Lisinopril 20 MG TABLET PO SCH (08:22)
[2018-07-22 15:56] VITALS: BP 165/84
--- NOTE | 2018-07-22 19:26 | Internal Med Progress Note ---
Hospitalist Progress Note - Encounter Date of Encounter: 07/22/18 Time of Encounter: 12:30 - Subjective Interval History: Patient denies any chest pain, headache, blurring of vision, shortness of breath, or palpitation. Blood pressure trend continues to improve. Notes from social media job titles reviewed. - Exam Vitals: Temp Pulse Resp BP Pulse Ox 97.3 F L 59 14 126/67 94 07/22/18 10:46 07/22/18 10:46 07/22/18 10:46 07/22/18 10:46 07/22/18 10:46 Exam: General: Alert and oriented, not in acute distress. Cardiovascular:Normal S1 & S2, No JVD. Pulse regular. Lungs: clear to auscultation, no wheezes/rales Abdomen:Soft, non-tender, no rigidity. Neurological: No focal deficits - Assessment and Plan (1) Hypertensive urgency Current Visit: Yes Status: Resolved Assessment and Plan: Presented to the ED after an episode of fall, noted to have significantly elevated blood pressure On lisinopril and Toprol-XL at home. Will continue lisinopril. Metoprolol switched to coreg 25mg BID yesterday, continue add norvasc 5mg QD yesterday, continue IV labetalol when necessary (2) Fall Current Visit: Yes Status: Acute Assessment and Plan: Appears to be mechanical in nature, multiple episodes lately requiring EMS' assistance. No evidence of traumatic sequelae noted on the imaging studies. PT/OT Social work notes reviewed, waiting for insurance authorization (3) Dementia Current Visit: Yes Status: Chronic Assessment and Plan: Resume home meds pending SNF placement (4) Diabetes Current Visit: No Status: Chronic Assessment and Plan: On Amaryl and Januvia at home. Hold off ADA diet, Accu-Checks AC+HS levemir 10U at hs in addition to low-dose sliding scale (5) Hypokalemia Current Visit: Yes Status: Acute Assessment and Plan: normal today, continue to monitor (6) DVT prophylaxis Current Visit: No Status: Acute Assessment and Plan: Sub-cutaneous heparin - Time Spent with Patient Total time spent is greater than 50% in coordination of care (as documented) at patient's floor/unit and/or counseling patient: Plan of Care Discussed with: social work Internal Medicine: Result - Labs CBC & Chem 7: 07/21/18 04:41 10/26/18 03:18 Labs: BMP 07/22/18 03:18 Sodium 131 L Potassium 4.0 Chloride 100 Carbon Dioxide 21 L BUN 19 Creatinine 0.75 Glucose 166 H Calcium 8.6 Consult Discharge Plan - Plan Referrals: NONE,PCP [Primary Care Provider] - (2) Fall Qualifiers: Encounter type: initial encounter (3) Dementia Qualifiers: Dementia type: unspecified type Dementia behavioral disturbance: without behavioral disturbance Qualified Code(s): F03.90 - Unspecified dementia without behavioral disturbance (4) Diabetes Qualifiers: Diabetes mellitus type: type 2 Diabetes mellitus usp insulin use: without middle or intermediate school principal use Diabetes mellitus complication status: without complication Qualified Code(s): E11.9 - Type 2 diabetes mellitus without complications
--- NOTE | 2018-07-22 19:37 | Discharge Summary ---
- NOTES TO OUTPATIENT PROVIDER Notes to Outpatient Provider: Patient was admitted for hypertensive urgency and fall. There is also a concern on worsening underlying dementia, needing higher level of care, as she lives alone. Her BP meds were adjusted during her stay with improvement in her readings. She also started on vitamin D supplements. Pt was evaluated by PT/OT and was recommended to be placed in SNF. She will be discharged to [facility] in stable condition on 07/22. Orders not resulted at time of discharge: Pending orders 07/23/18 04:00 Basic Metabolic Panel AM 0400 Date of Encounter: 07/22/18 Time of Encounter: 12:30 - Discharge Diagnosis (1) Hypertensive urgency Priority: Primary Status: Resolved (2) Fall Priority: Secondary Status: Acute Qualifiers: Encounter type: initial encounter (3) Dementia Priority: Secondary Status: Chronic Qualifiers: Dementia type: unspecified type Dementia behavioral disturbance: without be havioral disturbance Qualified Code(s): F03.90 - Unspecified dementia without behavioral disturbance (4) Diabetes Priority: Secondary Status: Chronic Qualifiers: Diabetes mellitus type: type 2 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 Tavares is a 88 year old female with history of dementia, diabetes, hypertension, recurrent falls was admitted for hypertensive urgency and fall. There was also a concern on worsening underlying dementia, needing higher level of care, as she lives alone. Her BP meds were adjusted during her stay with impr ovement in her readings. She also started on vitamin D supplements. Pt was evaluated by PT/OT and was recommended to be placed in SNF. She will be discharged to [facility] in stable condition on 07/22. Discharge discussed with: nurse, social work - Time Spent with Patient Total time spent providing and/or coordinating discharge services: 32 mins. - Discharge Medications Prescriptions: amLODIPine [Norvasc] 5 mg PO DAILY #30 tablet Carvedilol [Coreg] 25 mg PO BIDWM #60 tablet Cholecalciferol (D-3) [Vitamin D] 2,000 unit PO DAILY #30 tablet Home Medications: Aspirin [Lo-Dose Aspirin EC] 81 mg PO DAILY 05/29/18 [History] Cyanocobalamin (Vitamin B-12) [Vitamin B-12] 1,000 mcg PO DAILY 05/29/18 [History] Escitalopram [Lexapro] 10 mg PO DAILY 05/29/18 [History] Glimepiride [Amaryl] 4 mg PO BID 05/29/18 [History] Lisinopril [Zestril] 40 mg PO DAILY 05/29/18 [History] Montelukast [Singulair] 10 mg PO DAILY 05/29/18 [History] Omeprazole [PriLOSEC] 40 mg PO DAILY 05/29/18 [History] SitaGLIPtin [Januvia] 100 mg PO DAILY 05/29/18 [History] Donepezil [Aricept] 5 mg PO HS 07/20/18 [History] Carvedilol [Coreg] 25 mg PO BIDWM #60 tablet 07/22/18 [Rx] Cholecalciferol (D-3) [Vitamin D] 2,000 unit PO DAILY #30 tablet 07/22/18 [Rx] amLODIPine [Norvasc] 5 mg PO DAILY #30 tablet 07/22/18 [Rx] Allergies/Adverse Reactions: Allergy/AdvReac Type Severity Reaction Status Date / Time "some steroids" Allergy See Uncoded 05/29/18 14:21 Comments Date of admission: 07/20/18 14:19 Primary care physician: PCP NONE Consults: 07/20/18 14:52 Consult to Physical Therapy [CONS] Routine Comment: Evaluate, develop and implement POC Reason for Consult: fall, inability to ambulate Does patient have active BEDREST order?: No Is patient medically & hemodynamically stable?: Yes 07/20/18 15:13 Consult to Farm[employer] [CONS] Routine Reason for SW Consult: recurrent fall, pt lives alone. Will require placement - Constitutional Vitals: Temp Pulse Resp BP Pulse Ox 98.2 F 82 16 165/84 96 07/22/18 15:54 07/22/18 15:54 07/22/18 15:54 07/22/18 15:54 07/22/18 15:54 Exam: General: Alert and oriented, not in acute distress. Cardiovascular:Normal S1 & S2, No JVD. Pulse regular. Lungs: clear to auscultation, no wheezes/rales Abdomen:Soft, non-tender, no rigidity. Neurological: No focal deficits - Patient Status Disposition: Transfer SNF Condition: Fair Overall status at discharge: patient is progressing back to baseline - Discharge Instructions Instructions: Fall Prevention (DC), Chronic Hypertension (DC), Diabetes Mellitus Type 2 in Adults (DC) Follow Up With: NONE,PCP [Primary Care Provider] - - Diet and Activity Activity: as per physical therapy Diet: diabetic diet
--- NOTE | 2018-07-22 19:37 | Physician Discharge Referral ---
ExtendedCare Referral Info Institutional Level of Care: Skilled - Diagnosis (1) Hypertensive urgency Priority: Primary Status: Resolved (2) Fall Priority: Secondary Status: Acute (3) Dementia Priority: Secondary Status: Chronic (4) Diabetes Priority: Secondary Status: Chronic (5) Hypokalemia Priority: Secondary Status: Acute (6) DVT prophylaxis Priority: Secondary Status: Acute Prognosis: Fair - Transfer Medications Prescriptions: amLODIPine [Norvasc] 5 mg PO DAILY #30 tablet Carvedilol [Coreg] 25 mg PO BIDWM #60 tablet Cholecalciferol (D-3) [Vitamin D] 2,000 unit PO DAILY #30 tablet Home Medications: Aspirin [Lo-Dose Aspirin EC] 81 mg PO DAILY 05/29/18 [History] Cyanocobalamin (Vitamin B-12) [Vitamin B-12] 1,000 mcg PO DAILY 05/29/18 [History] Escitalopram [Lexapro] 10 mg PO DAILY 05/29/18 [History] Glimepiride [Amaryl] 4 mg PO BID 05/29/18 [History] Lisinopril [Zestril] 40 mg PO DAILY 05/29/18 [History] Montelukast [Singulair] 10 mg PO DAILY 05/29/18 [History] Omeprazole [PriLOSEC] 40 mg PO DAILY 05/29/18 [History] SitaGLIPtin [Januvia] 100 mg PO DAILY 05/29/18 [History] Donepezil [Aricept] 5 mg PO HS 07/20/18 [History] Carvedilol [Coreg] 25 mg PO BIDWM #60 tablet 07/22/18 [Rx] Cholecalciferol (D-3) [Vitamin D] 2,000 unit PO DAILY #30 tablet 07/22/18 [Rx] amLODIPine [Norvasc] 5 mg PO DAILY #30 tablet 07/22/18 [Rx] Allergies/Adverse Reactions: Allergy/AdvReac Type Severity Reaction Status Date / Time "some steroids" Allergy See Uncoded 05/29/18 14:21 Comments - Respiratory Orders Smoking Cessation: Smoking cessation has been advised. For more information, call the [place] Tobacco Quit Line at 0-515-MMQS-NOW. - Rehabiliation Orders Rehab Orders: Evaluation for Physical Therapy, Evaluation for Occupational Therapy - Diet Orders No Concentrated Sweets CERTIFICATION: I certify that the transfer of the above named patient to an Extended Care Facility is necessary for the continuing treatment of the diagnosis listed. The above information is true and accurate reflection of patient's current condition. Confidential - Redisclosure prohibited without a patient's written consent.
== END 2018-07-22 19:06 ==
LOC: EMEROOARM 11:09 → 3BNU 11:09 → SUATTDRO 14:19 → 3BNU 15:08
PROVIDERS: ADMIT Internal Medicine Nephrology; ATTEND Internal Medicine

== ENCOUNTER 2018-08-04 10:28 | Inpatient (IN) ==
--- NOTE | 2018-08-04 10:46 | Emergency Department Note ---
Disposition Clinical Impression: Multifocal pneumonia Disposition: Admitted As Inpatient Condition: Fair General Adult HPI - General Chief complaint: ED Shortness of Breath/Dyspnea Stated complaint: SOB Time Seen by Provider: 08/04/18 10:32 Source: EMS Limitations: age - History of Present Illness Pain Scale: 0 - Related Data Home Medications Medication Instructions Recorded Confirmed Aspirin [Lo-Dose [place]irin EC] [place] [address]/29/18 08/04/18 Cyanocobalamin (Vitamin B-12) 1,[place] [address]/29/18 08/04/18 [Vitamin B-12] Escitalopram [Lexapro] 10 mg PO 199905/29/18 08/04/18 Glimepiride [Amaryl] 4 mg PO 799,199905/29/18 08/04/18 Lisinopril [Zestril] [place] [address]/29/18 08/04/18 Montelukast [Singulair] 10 mg PO 199905/29/18 08/04/18 Omeprazole [PriLOSEC] [place] [address]05/29/18 08/04/18 SitaGLIPtin [Januvia] [place] [address]/29/18 08/04/18 Donepezil [Aricept] 5 mg PO 199907/20/18 08/04/18 Acetaminophen [Tylenol] 650 mg PO Q6HR PRN 08/04/18 08/04/18 Carvedilol [Coreg] 25 mg PO 08,199908/04/18 08/04/18 Ertapenem [INVanz] 1,000 mg IVPB DAILY 08/04/18 08/04/18 Ipratropium/Albuterol Neb [Duoneb] 3 ml IH 0500,1100,1700,2300 08/04/18 08/04/18 Levofloxacin [Levaquin] 500 mg PO DAILY 08/04/18 08/04/18 amLODIPine [Norvasc] 5 mg PO 0800 08/04/18 08/04/18 Allergies Allergy/AdvReac Type Severity Reaction Status Date / Time "some steroids" Allergy See Uncoded 05/29/18 14:21 Comments Past Medical History - Past Medical History Medical history: Reports: dementia, diabetes, hypertension Surgical history: Reports: other Psychiatric history: Reports: no psych history - Social History Smoking Status: Never smoker Smokeless Tobacco Status: No Alcohol use: Reports: none Drug use: Reports: none Physical Exam - General Limitations: age General appearance: alert, in no apparent distress Course Vital Signs Temperature 98.1 F 08/04/18 10:34 Pulse Rate 59 08/04/18 10:34 Respiratory Rate 22 08/04/18 10:34 Blood Pressure 134/50 08/04/18 10:34 O2 Sat by Pulse Oximetry 95 08/04/18 10:34 Temperature 98.9 F 08/04/18 14:29 Pulse Rate 59 08/04/18 14:29 Respiratory Rate 17 08/04/18 14:29 Blood Pressure 120/59 08/04/18 14:29 O2 Sat by Pulse Oximetry 94 08/04/18 14:29 Oxygen Delivery Oxygen Delivery Nasal Cannula Medical Decision Making - Lab Data Result diagrams: 08/04/18 10:54 08/04/18 10:54 Lab Results 08/04/18 08/04/18 08/04/18 Range/Units 10:54 10:54 10:54 WBC 8.6 (4.3-11.1) K/mcL RBC 3.96 (3.82-4.97) M/mcL Hgb 11.4 L (11.5-15.4) g/dL Hct 34.2 L (35.3-44.9) % MCV 86.4 (83.0-100.0) fL MCH 28.8 (28.0-33.3) pg MCHC 33.3 (31.6-35.5) g/dL RDW 14.4 (11.5-14.5) % Plt Count 168 (140-400) K/mcL MPV 9.6 (9.4-12.4) fL Immature Gran % 0.3 (0-4) % Seg Neutrophils % 72.4 % Lymphocytes % 15.1 % Monocytes % 11.4 % Eosinophils % 0.5 % Basophils % 0.3 % Neutrophils # 6.3 (1.6-8.9) K/mcL Lymphocytes # 1.3 (0.6-4.6) K/mcL Monocytes # 1.0 (0.0-1.3) K/mcL Eosinophils # 0.0 (0.0-0.6) K/mcL Basophils # 0.0 (0.0-0.2) K/mcL Sodium 132 L (136-145) mEq/L Potassium 3.8 (3.5-5.1) mEq/L Chloride 100 (98-107) mEq/L Carbon Dioxide 24 (23-29) mEq/L BUN 23 (8-23) mg/dL Creatinine 0.75 (0.60-1.20) mg/dL Est GFR ( Amer) > 60 (> 60) Est GFR (Non-Af Amer) > 60 (> 60) BUN/Creatinine Ratio 31 H (6-26) Glucose 172 H (70-105) mg/dL Calculated Osmolality 282 (280-300) Lactic Acid 1.0 (0.5-2.2) mmol/L Calcium 8.6 (8.6-10.3) mg/dL Troponin I < 0.03 (< 0.04) ng/mL B-Natriuretic Peptide (Less than 100) pg/mL 08/04/18 Range/Units 10:54 WBC (4.3-11.1) K/mcL RBC (3.82-4.97) M/mcL Hgb (11.5-15.4) g/dL Hct (35.3-44.9) % MCV (83.0-100.0) fL MCH (28.0-33.3) pg MCHC (31.6-35.5) g/dL RDW (11.5-14.5) % Plt Count (140-400) K/mcL MPV (9.4-12.4) fL Immature Gran % (0-4) % Seg Neutrophils % % Lymphocytes % % Monocytes % % Eosinophils % % Basophils % % Neutrophils # (1.6-8.9) K/mcL Lymphocytes # (0.6-4.6) K/mcL Monocytes # (0.0-1.3) K/mcL Eosinophils # (0.0-0.6) K/mcL Basophils # (0.0-0.2) K/mcL Sodium (136-145) mEq/L Potassium (3.5-5.1) mEq/L Chloride (98-107) mEq/L Carbon Dioxide (23-29) mEq/L BUN (8-23) mg/dL Creatinine (0.60-1.20) mg/dL Est GFR ( Amer) (> 60) Est GFR (Non-Af Amer) (> 60) BUN/Creatinine Ratio (6-26) Glucose (70-105) mg/dL Calculated Osmolality (280-300) Lactic Acid (0.5-2.2) mmol/L Calcium (8.6-10.3) mg/dL Troponin I (< 0.04) ng/mL B-Natriuretic Peptide 769 H (Less than 100) pg/mL Attestation Statement - Attestation Attestation: I examined this patient and my medical decision-making was reviewed with the INSIDE SALES SPECIALIST/PA/Advanced Practice Nurse/Resident Physician. I agree with the documented findings, disposition and treatment plan as described except to the extent set forth below. The patient presents per EMS and I did see the patient immediately upon arrival and she does have dementia shows not able to give an adequate history. I did review her ECF forms and we will speak with the nurse at the [facility] care facility. Reportedly she was diagnosed yesterday based on the chest x-ray sh owed right lower lobe atelectasis based on my review of the ECF sheet and then patient today was having desaturations with an oxygen saturation in the 80s so sent the emergency department. As best that I consult this point she does not use home oxygen. She was prescribed antibiotics yesterday but I do not believe she has had these started. Her CODE STATUS is DNRarrest. Patient will have testing done here including a chest x-ray, labs, lactate level and further disposition based on results of these tests with her oxygen desaturations occurring likely she will be admitted to the hospital 1047 I did review the patient's EKG showing sinus bradycardia with a rate of 59 bpm both out acute ischemic change. No signs of arrhythmia. 1046
--- NOTE | 2018-08-04 10:53 | Emergency Department Note ---
Disposition Clinical Impression: Multifocal pneumonia Disposition: Admitted As Inpatient Condition: Fair Time of Disposition: 13:00 General Adult HPI - General Chief complaint: ED Shortness of Breath/Dyspnea Stated complaint: SOB Time Seen by Provider: 08/04/18 10:32 Source: EMS Limitations: age Nursing Notes Reviewed: Yes Vital Signs Reviewed: Yes - History of Present Illness HPI Narrative: 88 year old female presents for hypoxia. Patient resides at [facility] and had oxygen saturation in mid-80s. They did a CXR that showed RLL atelectasis. Patient was sent to ED due to concern for pneumonia. Patient states she does not know why she's in the ED. Patient denies fever, shortness of breath, cough. Patient states she feels normal. Pain Scale: 0 - Related Data Home Medications Medication Instructions Recorded Confirmed Aspirin [Lo-Dose Aspirin EC] 81 mg PO 0805/29/18 08/04/18 Cyanocobalamin (Vitamin B-12) 1,000 mcg PO 00 05/29/18 08/04/18 [Vitamin B-12] Escitalopram [Lexapro] 10 mg PO 199905/29/18 08/04/18 Glimepiride [Amaryl] 4 mg PO 0800,199905/29/18 08/04/18 Lisinopril [Zestril] 40 mg PO 79905/29/18 08/04/18 Montelukast [Singulair] 10 mg PO 199905/29/18 08/04/18 Omeprazole [PriLOSEC] 40 mg PO 0800 05/29/18 08/04/18 SitaGLIPtin [Januvia] 100 mg PO 79905/29/18 08/04/18 Donepezil [Aricept] 5 mg PO 199907/20/18 08/04/18 Acetaminophen [Tylenol] 650 mg PO Q6HR PRN 08/04/18 08/04/18 Carvedilol [Coreg] 25 mg PO 0800,199908/04/18 08/04/18 Ertapenem [INVanz] 1,000 mg IVPB DAILY 08/04/18 08/04/18 Ipratropium/Albuterol Neb [Duoneb] 3 ml IH 0500,1100,1700,2300 08/04/18 08/04/18 Levofloxacin [Levaquin] 500 mg PO DAILY 08/04/18 08/04/18 amLODIPine [Norvasc] 5 mg PO 0800 08/04/18 08/04/18 Allergies Allergy/AdvReac Type Severity Reaction Status Date / Time "some steroids" Allergy See Uncoded 05/29/18 14:21 Comments Constitutional: Denies: fever, chills Eyes: Denies: eye pain, eye discharge ENT ED: Denies: ear pain, throat pain Cardiovascular: Denies: chest pain, palpitations Respiratory: Denies: cough, dyspnea Gastrointestinal: Denies: abdominal pain, nausea Genitourinary: Denies: urgency, dysuria Musculoskeletal: Denies: back pain, neck pain Integumentary: Denies: rash, abrasion Neurological: Denies: headache, weakness Past Medical History - Past Medical History Medical history: Reports: dementia, diabetes, hypertension Surgical history: Reports: other Psychiatric history: Reports: no psych history - Social History Smoking Status: Never smoker Smokeless Tobacco Status: No Alcohol use: Reports: none Drug use: Reports: none Physical Exam - General Limitations: age General appearance: alert, in no apparent distress - Head Head exam: atraumatic, normocephalic - Eye Eye exam: Present: PERRL, EOMI - ENT ENT exam: mucous membranes moist - Neck Neck exam: Present: normal inspection - Chest Chest inspection: Present: normal inspection, symmetric chest wall rise - Respiratory Respiratory exam: Present: normal lung sounds bilaterally, other (shallow breaths ) - Cardiovascular Cardiovascular exam: Present: regular rate, normal rhythm - Abdominal Exam Abdominal exam: Present: soft, Non-Tender. Absent: distention, guarding, rebound, rigidity - Extremities Exam Extremities exam: Present: normal inspection. Absent: tenderness, pedal edema, joint swelling - Neurological Exam Neurological exam: Present: alert. Absent: oriented X3 (Oriented to person and place, not to time ) - Psychiatric Psychiatric exam: Present: flat affect - Skin Skin exam: Present: warm, dry, intact, normal color Course Course Narrative: 88 year old female with history of dementia, diabetes, and HTN presents from [facility] for hypoxia yesterday with concern for pneumonia. CXR at [facility] showed RLL atelectasis. Patient is alert and oriented to person and place, but not to time. Unknown if this is baseline for patient. Patient is tachypneic at 25, oxygen saturation 25% on 2L nasal cannula. Other vitals are WNL. On exam, lungs are clear with shallow breaths. Will check labwork and CXR. - Reevaluation(s) Reevaluation #1: EKG shows no acute ischemic changes. CBC and BMP are unremarkable. BNP is elevated at 769. Troponin is negative. CXR shows bilateral opacities, either pulmonary edema or multifocal pneumonia. Will start on vanc and zosyn. Will not start lasix despite elevated BNP because patient shows no signs of fluid retention. Time: 11:49 Reevaluation #2: Hospitalist agrees to admit. Time: 13:00 Vital Signs Temperature 98.1 F 08/04/18 10:34 Pulse Rate 59 08/04/18 10:34 Respiratory Rate 22 08/04/18 10:34 Blood Pressure 134/50 08/04/18 10:34 O2 Sat by Pulse Oximetry 95 08/04/18 10:34 Temperature 98.9 F 08/04/18 14:29 Pulse Rate 59 08/04/18 14:29 Respiratory Rate 16 08/04/18 15:36 Blood Pressure 120/59 08/04/18 14:29 O2 Sat by Pulse Oximetry 94 08/04/18 15:36 Oxygen Delivery Oxygen Delivery Nasal Cannula Medical Decision Making - Medical Records Medical records reviewed: Yes I reviewed the patient's medical records. - Lab Data Lab results reviewed: Yes I reviewed the patient's lab results. Result diagrams: 08/04/18 10:54 08/04/18 10:54 Lab Results 08/04/18 08/04/18 08/04/18 Range/Units 10:54 10:54 10:54 WBC 8.6 (4.3-11.1) K/mcL RBC 3.96 (3.82-4.97) M/mcL Hgb 11.4 L (11.5-15.4) g/dL Hct 34.2 L (35.3-44.9) % MCV 86.4 (83.0-100.0) fL MCH 28.8 (28.0-33.3) pg MCHC 33.3 (31.6-35.5) g/dL RDW 14.4 (11.5-14.5) % Plt Count 168 (140-400) K/mcL MPV 9.6 (9.4-12.4) fL Immature Gran % 0.3 (0-4) % Seg Neutrophils % 72.4 % Lymphocytes % 15.1 % Monocytes % 11.4 % Eosinophils % 0.5 % Basophils % 0.3 % Neutrophils # 6.3 (1.6-8.9) K/mcL Lymphocytes # 1.3 (0.6-4.6) K/mcL Monocytes # 1.0 (0.0-1.3) K/mcL Eosinophils # 0.0 (0.0-0.6) K/mcL Basophils # 0.0 (0.0-0.2) K/mcL Sodium 132 L (136-145) mEq/L Potassium 3.8 (3.5-5.1) mEq/L Chloride 100 (98-107) mEq/L Carbon Dioxide 24 (23-29) mEq/L BUN 23 (8-23) mg/dL Creatinine 0.75 (0.60-1.20) mg/dL Est GFR ( Amer) > 60 (> 60) Est GFR (Non-Af Amer) > 60 (> 60) BUN/Creatinine Ratio 31 H (6-26) Glucose 172 H (70-105) mg/dL Calculated Osmolality 282 (280-300) Lactic Acid 1.0 (0.5-2.2) mmol/L Calcium 8.6 (8.6-10.3) mg/dL Troponin I < 0.03 (< 0.04) ng/mL B-Natriuretic Peptide (Less than 100) pg/mL 08/04/18 Range/Units 10:54 WBC (4.3-11.1) K/mcL RBC (3.82-4.97) M/mcL Hgb (11.5-15.4) g/dL Hct (35.3-44.9) % MCV (83.0-100.0) fL MCH (28.0-33.3) pg MCHC (31.6-35.5) g/dL RDW (11.5-14.5) % Plt Count (140-400) K/mcL MPV (9.4-12.4) fL Immature Gran % (0-4) % Seg Neutrophils % % Lymphocytes % % Monocytes % % Eosinophils % % Basophils % % Neutrophils # (1.6-8.9) K/mcL Lymphocytes # (0.6-4.6) K/mcL Monocytes # (0.0-1.3) K/mcL Eosinophils # (0.0-0.6) K/mcL Basophils # (0.0-0.2) K/mcL Sodium (136-145) mEq/L Potassium (3.5-5.1) mEq/L Chloride (98-107) mEq/L Carbon Dioxide (23-29) mEq/L BUN (8-23) mg/dL Creatinine (0.60-1.20) mg/dL Est GFR ( Amer) (> 60) Est GFR (Non-Af Amer) (> 60) BUN/Creatinine Ratio (6-26) Glucose (70-105) mg/dL Calculated Osmolality (280-300) Lactic Acid (0.5-2.2) mmol/L Calcium (8.6-10.3) mg/dL Troponin I (< 0.04) ng/mL B-Natriuretic Peptide 769 H (Less than 100) pg/mL - Radiology Data Radiology results reviewed: Yes I reviewed the patient's radiology results. - EKG Data EKG #1 EKG attestation: Yes I reviewed and interpreted this EKG. EKG results narrative: EKG 08/04/18 10:38. Sinus rhythm. Heart rate 59. No ST segment elevation or depression. No significant change from prior EKG 07/20/18.
[2018-08-04 11:07] LABS: Basophils % 0.3 %; Eosinophils % 0.5 %; Hematocrit 34.2 % (35.3-44.9); Hemoglobin 11.4 g/dL (11.5-15.4); Immature Granulocytes % 0.3 % (0-4); Lymphocytes # 1.3 K/mcL (0.6-4.6); Lymphocytes % 15.1 %; Mean Corpuscular HGB Conc 33.3 g/dL (31.6-35.5); Mean Corpuscular Hemoglobin 28.8 pg (28.0-33.3); Mean Corpuscular Volume 86.4 fL (83.0-100.0); Mean Platelet Volume 9.6 fL (9.4-12.4); Monocytes % 11.4 %; Neutrophils # 6.3 K/mcL (1.6-8.9); Platelet Count 168 K/mcL (140-400); Red Blood Count 3.96 M/mcL (3.82-4.97); Red Cell Distribution Width 14.4 % (11.5-14.5); Segmented Neutrophils % 72.4 %
[2018-08-04 11:26] LABS: BUN/Creatinine Ratio 31 (6-26); Blood Urea Nitrogen 23 mg/dL (8-23); Calcium 8.6 mg/dL (8.6-10.3); Carbon Dioxide 24 mEq/L (23-29); Chloride 100 mEq/L (98-107); Glucose 172 mg/dL (70-105); Osmolality,Calculated 282 (280-300); Potassium 3.8 mEq/L (3.5-5.1); Sodium 132 mEq/L (136-145); eGFR For Non-African Americans > 60 (> 60)
[2018-08-04 11:27] LABS: Troponin I < 0.03 ng/mL (< 0.04)
[2018-08-04] MEDS ORDERED: Piperacillin/Tazobactam 3.375 GM in Water for inj. (sterile) 20 ML 20 ML IVP ONE (11:43)
--- NOTE | 2018-08-04 13:57 | Internal Med History&Physical ---
<Antonio Hernandez - Last Filed: 08/04/18 16:34> Date of Encounter: 08/04/18 Time of Encounter: 13:30 Internal Medicine - H&P: HPI Chief complaint: hypoxia Admitted From: Long-term Nursing Facility Plans for Post Hospital Care: Transfer Vet Assistant Care History of present illness: Ms. Tavares is a 88 year old female that presented to [facility] ED from [facility] for hypoxia into the 80's.Patient is a poor historian with history of dementia, however, patient's eldest son at bedside. PMHx of dementia, diabetes, HTN, and multiple falls. Reported CXR yesterday showed RLL atelectasis. In the ED patient had CXR showing bilateral opacities, possibly pulmonary edema vs pneumonia. BMP of 769, Troponin negative, CBC and BMP unremarkable other than chronic hyponatremia. Patient received 1 dose Zosyn and Vancomycin in the ED. Patient denies any complaints currently; denies chest pain, shortness of breath, increased sputum, nausea, vomiting, abdominal pain, dysuria, diarrhea, leg pain or edema. Son denies history of aspiration or patient having trouble eating. Son does note patient appears to be working harder to breath. Currently on 2L supplemental oxygen, does not have home oxygen. Past Med Surg Social Fam HX - Past Medical History Attestation: Yes The following information was validated with the patient. Source: patient, old records reviewed, obtained from family Medical history: dementia, diabetes, hypertension Psychiatric history: no psych history - Past Surgical History Surgical History: other Additional surgical history: breast infection sugery bilateral they took drianed the infection - Social History Smoking Status: Never smoker Smokeless Tobacco Status: No Alcohol use: none Drug use: none - Family History Mother Living Status: Hx Family Cardiac Disorders: Yes Hx Family Respiratory Disorders: No Hx Family Cancer: No Hx Family GI Disorders: No Hx Family Endocrine Disorder: No Hx Family Neuromuscular Disorders: No Hx Family Neurologic Disorders: No Hx Family HEENT Disorders: No Hx Family Autoimmune Disorders: No Father Living Status: Hx Family Cardiac Disorders: Yes Hx Family Respiratory Disorders: No Hx Family Cancer: No Hx Family GI Disorders: No Hx Family Endocrine Disorder: Yes Hx Family Neuromuscular Disorders: No Hx Family Neurologic Disorders: No Hx Family HEENT Disorders: No Hx Family Autoimmune Disorders: No Internal Medicine - H&P: Meds Aspirin [Lo-Dose Aspirin EC] 81 mg PO 79905/29/18 [History] Cyanocobalamin (Vitamin B-12) [Vitamin B-12] 1,000 [place] 79905/29/18 [History] Escitalopram [Lexapro] 10 mg PO 199905/29/18 [History] Glimepiride [Amaryl] 4 mg PO 08,199905/29/18 [History] Lisinopril [Zestril] 40 mg PO 79905/29/18 [History] Montelukast [Singulair] 10 mg PO 199905/29/18 [History] Omeprazole [PriLOSEC] 40 mg PO 79905/29/18 [History] SitaGLIPtin [Januvia] 100 mg PO 79905/29/18 [History] Donepezil [Aricept] 5 mg PO 199907/20/18 [History] Acetaminophen [Tylenol] 650 mg PO Q6HR PRN 08/04/18 [History] Carvedilol [Coreg] 25 mg PO 799,199908/04/18 [History] Ertapenem [INVanz] 1,000 mg IVPB DAILY 08/04/18 [History] Ipratropium/Albuterol Neb [Duoneb] 3 ml IH 0500,1100,1700,2300 08/04/18 [History] Levofloxacin [Levaquin] 500 mg PO DAILY 08/04/18 [History] amLODIPine [Norvasc] 5 mg PO 0808/04/18 [History] Allergy/AdvReac Type Severity Reaction Status Date / Time "some steroids" Allergy See Uncoded 05/29/18 14:21 Comments All Systems PM: A 10-system review of systems was performed and is negative for pertinent findings except as documented above in the HPI. Though not reliable based on patient's dementia. - Constitutional Vitals: Temp Pulse Resp BP Pulse Ox 98.1 F 58 22 134/76 96 08/04/18 10:34 08/04/18 13:39 08/04/18 13:39 08/04/18 13:39 08/04/18 13:39 General appearance: Present: cooperative, A&O X 2 Exam: . - Head Head exam: Present: atraumatic, normocephalic - Eye Eye exam: Present: PERRL, conjuntiva pink, sclera anicteric Pupils: Present: PERRL - Neck Neck exam general surgery: Present: supple, trachea midline. Absent: lymphadenopathy - Respiratory Respiratory exam: Present: accessory muscle use (abdominal breathing), decreased breath sounds. Absent: rales, rhonchi - Cardiovascular Cardiovascular exam: Present: RRR, +S1, +S2. Absent: diastolic murmur, gallop, rubs, systolic murmur - GI/Abdominal GI/Abdominal exam: Present: normal bowel sounds, soft, no peritoneal signs. Absent: distended, tenderness - Extremities Exam Extremities exam: Present: warm, radial pulses palpable and symmetrical. Absent: calf tenderness, cyanotic, pedal edema - Neurological Exam Neurological exam: Present: alert, no focal deficits. Absent: speech deficit - Skin Skin exam: Present: dry, intact Internal Med - H&P Results - Labs CBC & Chem 7: 08/04/18 10:54 08/04/18 10:54 Labs: Short CBC 08/04/18 Range/Units 10:54 WBC 8.6 (4.3-11.1) K/mcL Hgb 11.4 L (11.5-15.4) g/dL Hct 34.2 L (35.3-44.9) % Plt Count 168 (140-400) K/mcL Neutrophils # 6.3 (1.6-8.9) K/mcL BMP 08/04/18 10:54 Sodium 132 L Potassium 3.8 Chloride 100 Carbon Dioxide 24 BUN 23 Creatinine 0.75 Glucose 172 H Calcium 8.6 Cardiac Enzymes 08/04/18 Range/Units 10:54 Troponin I < 0.03 (< 0.04) ng/mL - Impressions ITS Impressions Chest X-Ray 08/04/18 10:37 IMPRESSION: Bilateral airspace opacities which may represent pulmonary edema or multifocal pneumonia. Probable small left-sided pleural effusion. Follow-up to resolution is recommended. D/ / Lorna Gibbs MD / Lorna Gibbs MD Interpreting Provider: Lorna Gibbs MD - Assessment and plan (1) Multifocal pneumonia Current Visit: Yes Status: Acute Assessment and plan: Hypoxic on RA CXR showing bilaterally opacities Increased work in breathing. Plan: Titrate supplemental O2 to maintain O2 saturation >90%. Started on duonebs and singulair. Given 1 dose of Zosyn and Vancomycin in the ED. Will continue antibiotics with Zosyn and Levaquin Of note patient on aricept, lexapro, and levaquin which are all QT prolonging medications. EKGs reviewed, no past QTC prolongation, though recommend close monitoring, if there is further concern we will stop levaquin. Also it is documented that patient has allergy to steroids, will try to clarify this. If this is not a true allergy than we can add steroids to regimen as there may be underlying COPD. (2) Hyponatremia Current Visit: No Status: Chronic Assessment and plan: Chronic, at baseline. Will continue to monitor with AM labs. (3) Dementia Current Visit: No Status: Chronic Assessment and plan: Chronic. Continue aricept for now, could hold if concerned about QT prolongation. Qualifiers: Dementia type: unspecified type Dementia behavioral disturbance: without behavioral disturbance Qualified Code(s): F03.90 - Unspecified dementia without behavioral disturbance (4) Diabetes Current Visit: No Status: Chronic Assessment and plan: Home meds held. Low dose corrective SSI started. Previous admission patient was on 10 units basal qHS, if BG elevated will consider restarting basal insulin. Qualifiers: Diabetes mellitus type: type 2 Diabetes mellitus lobsterman insulin use: without lobsterman use Diabetes mellitus complication status: without complication Qualified Code(s): E11.9 - Type 2 diabetes mellitus without complications (5) Hypertension Current Visit: No Status: Chronic Assessment and plan: Currently stable on home medications with BP 123/57. Will continue home regimen. Qualifiers: Hypertension type: essential hypertension Qualified Code(s): I10 - Essential (primary) hypertension (6) DVT prophylaxis Current Visit: No Status: Acute Assessment and plan: SQ heparin - Time Spent With Patient Total time spent is greater than 50% in coordination of care (as documented) at patient's floor/unit and/or counseling patient: less than 15 minutes <Bronson Sandoval - Last Filed: 08/04/18 17:16> Date of Encounter: 08/04/18 Internal Medicine - H&P: HPI History of present illness: Ms. Tavares is a 88 year old female All Systems PM: A 10-system review of systems was performed and is negative for pertinent findings except as documented above in the HPI. - Constitutional Vitals: Temp Pulse Resp BP Pulse Ox 98.9 F 59 17 120/59 94 08/04/18 14:29 08/04/18 14:29 08/04/18 14:29 08/04/18 14:29 08/04/18 14:29 Internal Med - H&P Results - Labs CBC & Chem 7: 08/04/18 10:54 08/04/18 10:54 Labs: Short CBC 08/04/18 Range/Units 10:54 WBC 8.6 (4.3-11.1) K/mcL Hgb 11.4 L (11.5-15.4) g/dL Hct 34.2 L (35.3-44.9) % Plt Count 168 (140-400) K/mcL Neutrophils # 6.3 (1.6-8.9) K/mcL BMP 08/04/18 10:54 Sodium 132 L Potassium 3.8 Chloride 100 Carbon Dioxide 24 BUN 23 Creatinine 0.75 Glucose 172 H Calcium 8.6 Cardiac Enzymes 08/04/18 Range/Units 10:54 Troponin I < 0.03 (< 0.04) ng/mL - ABG Interpretation ABG results: 08/04/18 15:35 ABG pH 7.47 H ABG pCO2 34 L ABG pO2 70 L ABG HCO3 25 ABG Total CO2 26 ABG O2 Saturation 95 ABG Base Excess 1 - Impressions ITS Impressions Chest X-Ray 08/04/18 10:37 IMPRESSION: Bilateral airspace opacities which may represent pulmonary edema or multifocal pneumonia. Probable small left-sided pleural effusion. Follow-up to resolution is recommended. D/ / Lorna Gibbs MD / Lorna Gibbs MD Interpreting Provider: Lorna Gibbs MD - Time Spent With Patient Total time spent is greater than 50% in coordination of care (as documented) at patient's floor/unit and/or counseling patient: - Attending Attestation I saw and independently assessed this patient and agree with plan per resident as above Exam Resp. Expiratory wheezes Plan Acute hypoxic respiratory likely secondary to multifocal pneumonia, Asthma/COPD exacerbation and heart failure with preserved EF - Obtain blood culutres, urine strep and legionella antigen. Started on zosyn and levaquin for possible bacterial HCAP - LAsix as needed for pulmonary edema. LAst echo showed preserved EF - Asthma wexacerbation. Reports allergy to steroids but this is unclear if this is true. Will start on duonebs. Low dose steroids and monitor
[2018-08-04] MEDS ORDERED: Naloxone 0.4 MG/ML INJ IVP PRN (14:28)
[2018-08-04] MEDS ORDERED: Isovue-370 500 ML INFUS..BTL IV ONE (14:37)
[2018-08-04] MEDS ORDERED: Dextrose Gel 15 GM/37.5 ML TUBE PO PRN ×2 (14:48)
[2018-08-04] MEDS ORDERED: D5% in Water 1,000 ML IVC PRN (14:48)
[2018-08-04] MEDS ORDERED: *HR* Dextrose 50 % in Water (Syg) 50 ML SYRINGE IVP PRN (14:48)
[2018-08-04] MEDS ORDERED: Acetaminophen 325 MG TABLET PO PRN (14:50)
[2018-08-04] MEDS: Ipratropium/Albuterol Neb 3 ML IH SCH ×2 (15:36→21:15)
[2018-08-04 15:38] LABS: ABG Base Excess 1 mEq/L (-2 to 3); ABG HCO3 25 mEq/L (21-27); ABG Oxygen Saturation 95 % (95-98); ABG PCO2 34 mmHg (35-45); ABG PH 7.47 pH Units (7.32-7.45); ABG PO2 70 mmHg (85-104); ABG TCO2 26 mEq/L (20-26)
[2018-08-04] MEDS: Levofloxacin 750 MG/150 ML 750 MG/150 ML BAG IVPB SCH (16:13)
[2018-08-04] MEDS ORDERED: Furosemide 20 MG/2 ML VIAL IVP SCH ×2 (16:19→21:00)
[2018-08-04] MEDS ORDERED: Furosemide 40 MG/4 ML VIAL IVP ONE (16:24)
[2018-08-04] MEDS: *HR* Heparin 5,000 UNIT/ML VIAL SQ SCH ×2 (17:33→20:34)
[2018-08-04] MEDS: Insulin LISPRO 300 UNITS/3 ML VIAL SQ SCH ×2 (17:34→21:33)
[2018-08-04] MEDS ORDERED: Piperacillin/Tazobactam 3.375 GM in 0.9 % Sodium Chloride Mini Bag 100 ML IVPB SCH (18:00)
[2018-08-04] MEDS: MethylPREDNISolone 40 MG/ML VIAL IVP SCH ×2 (18:49→23:39)
[2018-08-04] MEDS: Piperacillin/Tazobactam 3.375 GM in 0.9 % Sodium Chloride Mini Bag 100 ML IVPB SCH (20:36)
[2018-08-05] MEDS: Ipratropium/Albuterol Neb 3 ML IH SCH ×7 (00:05→23:35)
[2018-08-05] MEDS: Piperacillin/Tazobactam 3.375 GM in 0.9 % Sodium Chloride Mini Bag 100 ML IVPB SCH ×3 (03:40→20:34)
[2018-08-05 05:08] LABS: Hemoglobin 11.4 g/dL (11.5-15.4); Immature Granulocytes % 0.2 % (0-4); Lymphocytes # 0.5 K/mcL (0.6-4.6); Mean Corpuscular HGB Conc 33.5 g/dL (31.6-35.5); Mean Corpuscular Hemoglobin 28.7 pg (28.0-33.3); Mean Corpuscular Volume 85.6 fL (83.0-100.0); Monocytes # 0.1 K/mcL (0.0-1.3); Monocytes % 1.7 %; Neutrophils # 4.1 K/mcL (1.6-8.9); Platelet Count 174 K/mcL (140-400); Red Blood Count 3.97 M/mcL (3.82-4.97); Red Cell Distribution Width 14.1 % (11.5-14.5); Segmented Neutrophils % 87.1 %
[2018-08-05 05:13] LABS: BUN/Creatinine Ratio 29 (6-26); Blood Urea Nitrogen 25 mg/dL (8-23); Calcium 8.7 mg/dL (8.6-10.3); Carbon Dioxide 23 mEq/L (23-29); Chloride 98 mEq/L (98-107); Glucose 241 mg/dL (70-105); Osmolality,Calculated 290 (280-300); Potassium 3.5 mEq/L (3.5-5.1); Sodium 134 mEq/L (136-145); eGFR For Non-African Americans > 60 (> 60)
[2018-08-05] MEDS: *HR* Heparin 5,000 UNIT/ML VIAL SQ SCH ×3 (05:23→20:21)
[2018-08-05] MEDS: MethylPREDNISolone 40 MG/ML VIAL IVP SCH ×4 (07:52→14:52)
[2018-08-05] MEDS: Furosemide 40 MG/4 ML VIAL IVP SCH ×2 (07:53→20:21)
[2018-08-05] MEDS: Levofloxacin 750 MG/150 ML 750 MG/150 ML BAG IVPB SCH (07:53)
[2018-08-05] MEDS: Cyanocobalamin (B-12) 1,000 MCG TABLET PO SCH (07:54)
[2018-08-05] MEDS: amLODIPine 5 MG TABLET PO SCH (07:54)
[2018-08-05] MEDS: Aspirin Enteric Coated 81 MG Tablet PO SCH (07:54)
[2018-08-05] MEDS: Insulin LISPRO 300 UNITS/3 ML VIAL SQ SCH ×4 (07:55→20:28)
[2018-08-05] MEDS ORDERED: Lisinopril 20 MG TABLET PO SCH (08:00)
[2018-08-05 09:00] LABS: INR 1.2
--- NOTE | 2018-08-05 09:06 | Internal Med Progress Note ---
<Antonio Hernandez - Last Filed: 08/05/18 17:22> Hospitalist Progress Note - Encounter Date of Encounter: 08/05/18 Time of Encounter: 08:40 - Subjective Interval History: Patient seen and evaluated sitting back in bed, eating breakfast. She is awake and alert. Still appears to have some increased work of breathing but denies any issues currently. Re-evaluated in the afternoon. Patient sitting in bed. Breathing more comfort ably. Family notes she appears more awake and alert. They also noted bruise to left lateral leg superior to ankle. Patient has tolerated steroids here fine without side effects. - Exam Vitals: Temp Pulse Resp BP Pulse Ox 98.3 F 64 14 127/73 99 08/05/18 07:35 08/05/18 07:35 08/05/18 07:35 08/05/18 07:35 08/05/18 07:35 Exam: General appearance: Present: cooperative, A&O X 2 - Head Head exam: Present: atraumatic, normocephalic - Eye Eye exam: Present: PERRL, conjuntiva pink, sclera anicteric Pupils: Present: PERRL - Neck Neck exam general surgery: Present: supple, trachea midline. Absent: lymphaden opathy - Respiratory Respiratory exam: Present: decreased breath sounds. Absent: rales, rhonchi - Cardiovascular Cardiovascular exam: Present: RRR, +S1, +S2. Absent: diastolic murmur, gallop, rubs, systolic murmur - GI/Abdominal GI/Abdominal exam: Present: normal bowel sounds, soft, no peritoneal signs. Absent: distended, tenderness - Extremities Exam Extremities exam: Present: warm, radial pulses palpable and symmetrical. Area of ecchymosis on the lateral lower left leg just superior to ankle. Trace edema bilaterally, no pain. Absent: calf tenderness, cyanotic. - Neurological Exam Neurological exam: Present: alert, no focal deficits. Absent: speech deficit - Skin Skin exam: Present: dry, intact . - Assessment and Plan (1) Acute respiratory failure with hypoxia Current Visit: Yes Status: Resolved Assessment and Plan: Initially hypoxic on RA and with increased work in breathing. CXR showing bilaterally opacities CT showing bilateral effusions, may have over lying pneumonia. Acute resp failure likely due to combinations of fluid overload secondary to CHF, pneumonia, and possible COPD/asthma. Plan: Titrate supplemental O2 to maintain O2 saturation >90%. Currently on 2L. Continue on duonebs, singulair, symbicort, and solu-medrol. Discussed with PCP patient's history of steroid allergy, PCP Marcela Bass believes this was listed due to side effects. Patient given steroid yesterday and today and tolerated these well without side effects. Given 1 dose of Zosyn and Vancomycin in the ED. Will continue antibiotics with Zosyn (day 2)and Levaquin (day 2) Of note patient on aricept, lexapro, and levaquin which are all QT prolonging medications. EKGs reviewed, no past QTC prolongation, though recommend close monitoring, if there is further concern we will stop levaquin. (2) Multifocal pneumonia Current Visit: Yes Status: Acute Assessment and Plan: Patient's resp failure likely multifactorial. See complete plan as above. Patient improving. Continuing IV antibiotics. Continue lasix and breathing treatments as needed. (3) Heart failure with preserved ejection fraction Current Visit: Yes Status: Acute Assessment and Plan: Echo in May 2018 with EF 60-65%. Patient fluid overloaded with pleural effusions bilaterally and hypoxia on initial presentation. Continue lasix BID. Continue to monitor vitals/electrolytes/kidney function. (4) Hyponatremia Current Visit: No Status: Chronic Assessment and Plan: Chronic, at baseline, will continue to monitor with AM labs as indicated. (5) Dementia Current Visit: No Status: Chronic Assessment and Plan: Chronic. Continue aricept for now, could hold if concerned about QT prolongation. (6) Diabetes Current Visit: No Status: Chronic Assessment and Plan: Home meds held. Starting 10units basal insulin and Low dose corrective SSI (7) Hypertension Current Visit: No Status: Chronic Assessment and Plan: Currently stable on home medications with BP 134/66 Will continue home regimen. (8) DVT prophylaxis Current Visit: No Status: Acute Assessment and Plan: SQ heparin, monitor brusing on leg, may have to dc heparin if worsening. DVT Prophylaxis: SQ heparin - Time Spent with Patient Total time spent is greater than 50% in coordination of care (as documented) at patient's floor/unit and/or counseling patient: less than 15 minutes Plan of Care Discussed with: family Internal Medicine: Result - Labs CBC & Chem 7: 08/05/18 03:39 08/05/18 03:39 Labs: Short CBC 08/04/18 08/05/18 Range/Units 10:54 03:39 WBC 8.6 4.7 (4.3-11.1) K/mcL Hgb 11.4 L 11.4 L (11.5-15.4) g/dL Hct 34.2 L 34.0 L (35.3-44.9) % Plt Count 168 174 (140-400) K/mcL Neutrophils # 6.3 4.1 (1.6-8.9) K/mcL BMP 08/04/18 08/05/18 10:54 03:39 Sodium 132 L 134 L Potassium 3.8 3.5 Chloride 100 98 Carbon Dioxide 24 23 BUN 23 25 H Creatinine 0.75 0.87 Glucose 172 H 241 H Calcium 8.6 8.7 Cardiac Enzymes 08/04/18 Range/Units 10:54 Troponin I < 0.03 (< 0.04) ng/mL - ABG Interpretation ABG results: ABG ABG pH 7.47 pH Units (7.32-7.45) H 08/04/18 15:35 ABG pCO2 34 mmHg (35-45) L 08/04/18 15:35 ABG pO2 70 mmHg (85-104) L 08/04/18 15:35 ABG O2 Saturation 95 % (95-98) 08/04/18 15:35 PT/INR, D-dimer PT 14.0 Seconds (9.4-12.1) H 08/05/18 07:50 - Impressions Impressions Chest X-Ray 08/04/18 10:37 IMPRESSION: Bilateral airspace opacities which may represent pulmonary edema or multifocal pneumonia. Probable small left-sided pleural effusion. Follow-up to resolution is recommended. D/ / Lorna Gibbs MD / Lorna Gibbs MD Interpreting Provider: Lorna Gibbs MD Chest CT 08/04/18 14:37 IMPRESSION: Multifocal airspace disease bilaterally with bilateral pleural effusions, right larger than left. This is nonspecific and may represent multifocal pneumonia or edema. Mediastinal lymph nodes are likely reactive. Follow-up recommended. Small pericardial effusion Probable liver cyst D/ / Flaquito Gibbons / Flaquito Gibbons Interpreting Provider: Flaquito Gibbons Consult Discharge Plan - Plan Referrals: Marcela Bass, [employer]OTH COL[employer] EXAMINER [Primary Care Provider] - <Bronson Sandoval - Last Filed: 08/05/18 18:20> Hospitalist Progress Note - Encounter Date of Encounter: 08/05/18 - Exam Vitals: Temp Pulse Resp BP Pulse Ox 97.4 F L 68 16 134/66 92 08/05/18 15:48 08/05/18 15:48 08/05/18 16:53 08/05/18 15:48 08/05/18 16:53 - Time Spent with Patient Total time spent is greater than 50% in coordination of care (as documented) at patient's floor/unit and/or counseling patient: Internal Medicine: Result - Labs CBC & Chem 7: 08/05/18 03:39 08/05/18 03:39 Labs: Short CBC 08/05/18 Range/Units 03:39 WBC 4.7 (4.3-11.1) K/mcL Hgb 11.4 L (11.5-15.4) g/dL Hct 34.0 L (35.3-44.9) % Plt Count 174 (140-400) K/mcL Neutrophils # 4.1 (1.6-8.9) K/mcL BMP 08/05/18 03:39 Sodium 134 L Potassium 3.5 Chloride 98 Carbon Dioxide 23 BUN 25 H Creatinine 0.87 Glucose 241 H Calcium 8.7 Liver Function 08/05/18 Range/Units 07:50 Total Bilirubin 0.6 (0.3-1.0) mg/dL Direct Bilirubin 0.2 (0.0-0.2) mg/dL AST 10 L (13-39) Units/L ALT 9 (7-52) Units/L Alkaline Phosphatase 72 (34-104) Units/L Albumin 3.4 L (3.5-5.7) g/dL - ABG Interpretation ABG results: ABG ABG pH 7.47 pH Units (7.32-7.45) H 08/04/18 15:35 ABG pCO2 34 mmHg (35-45) L 08/04/18 15:35 ABG pO2 70 mmHg (85-104) L 08/04/18 15:35 ABG O2 Saturation 95 % (95-98) 08/04/18 15:35 PT/INR, D-dimer PT 14.0 Seconds (9.4-12.1) H 08/05/18 07:50 - Impressions Impressions Chest CT 08/04/18 14:37 IMPRESSION: Multifocal airspace disease bilaterally with bilateral pleural effusions, right larger than left. This is nonspecific and may represent multifocal pneumonia or edema. Mediastinal lymph nodes are likely reactive. Follow-up recommended. Small pericardial effusion Probable liver cyst D/ / Flaquito Gibbons / Flaquito Gibbons Interpreting Provider: Flaquito Gibbons Chest Ultrasound 08/05/18 07:18 IMPRESSION: No significant pleural fluid identified to perform thoracentesis bilaterally. D/ / Jarrett Pineda / Jarrett Pineda Interpreting Provider: Jarrett Pineda Chest Ultrasound 08/05/18 07:18 IMPRESSION: No significant pleural fluid identified to perform thoracentesis bilaterally. D/ / Jarrett Pineda / Jarrett Pineda Interpreting Provider: Jarrett Pineda - Attending Attestation I saw and independently assessed this patient and agree with plan per resident as above Exam Resp. Expiratory wheezes. Improved this am Plan Acute hypoxic respiratory likely secondary to multifocal pneumonia, Asthma/COPD exacerbation and heart failure with preserved EF - Obtain blood cultures, urine strep and legionella antigen. Started on zosyn and levaquin for possible bacterial HCAP. Repeat cxr in am - Lasix as needed for pulmonary edema. Last echo showed preserved EF - Asthma wexacerbation. Patient tolerating methylprednisolone. Continyue round the clock nebs -Small pericardial effusion. 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
[2018-08-05 09:11] LABS: Albumin 3.4 g/dL (3.5-5.7); Albumin/Globulin Ratio 1.3 (1.1-2.2); Bilirubin,Direct 0.2 mg/dL (0.0-0.2); Bilirubin,Indirect 0.4 mg/dL (0.0-1.2); Bilirubin,Total 0.6 mg/dL (0.3-1.0); Globulin 2.6 g/dL (2.4-3.5)
[2018-08-05] MEDS: Budesonide/Formoterol 160/4.5 1 PUFF INH IH SCH ×2 (11:27→19:50)
[2018-08-05] MEDS ORDERED: MethylPREDNISolone 40 MG/ML VIAL IVP SCH (16:32)
--- NOTE | 2018-08-05 18:59 | Electrocardiograph Report ---
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
[2018-08-05] MEDS ORDERED: Insulin DETEMIR 100 UNIT/ML X5UNITS SQ SCH (21:00)
[2018-08-06] MEDS: MethylPREDNISolone 40 MG/ML VIAL IVP SCH ×3 (00:31→09:13)
[2018-08-06] MEDS: Ipratropium/Albuterol Neb 3 ML IH SCH ×6 (03:39→23:57)
[2018-08-06] MEDS: Piperacillin/Tazobactam 3.375 GM in 0.9 % Sodium Chloride Mini Bag 100 ML IVPB SCH ×2 (04:00→13:04)
[2018-08-06] MEDS: *HR* Heparin 5,000 UNIT/ML VIAL SQ SCH ×3 (05:29→20:23)
[2018-08-06] MEDS: amLODIPine 5 MG TABLET PO SCH (09:14)
[2018-08-06] MEDS: Aspirin Enteric Coated 81 MG Tablet PO SCH (09:14)
[2018-08-06] MEDS: Furosemide 40 MG/4 ML VIAL IVP SCH (09:14)
[2018-08-06] MEDS: Cyanocobalamin (B-12) 1,000 MCG TABLET PO SCH (09:14)
[2018-08-06] MEDS: Insulin LISPRO 300 UNITS/3 ML VIAL SQ SCH ×4 (09:15→20:23)
[2018-08-06] MEDS: Budesonide/Formoterol 160/4.5 1 PUFF INH IH SCH ×2 (11:01→19:42)
[2018-08-06 12:36] LABS: Calcium 8.6 mg/dL (8.6-10.3); Potassium 3.2 mEq/L (3.5-5.1)
--- NOTE | 2018-08-06 13:06 | Internal Med Progress Note ---
<Antonio Hernandez - Last Filed: 08/06/18 17:16> Hospitalist Progress Note - Encounter Date of Encounter: 08/06/18 Time of Encounter: 09:00 - Subjective Interval History: Patient seen and evaluated sitting up in bed, sleeping but easily arousable. After awaken she started eating breakfast. No acute distress. Denies chest pain, shortness of breath, nausea, vomiting, abd pain. Admits fatigue. Currently on 2L via NC. - Exam Vitals: Temp Pulse Resp BP Pulse Ox 97.8 F 59 18 130/67 96 08/06/18 11:37 08/06/18 11:37 08/06/18 11:37 08/06/18 11:37 08/06/18 11:37 Exam: General appearance: Present: cooperative, A&O X 2 Head exam: Present: atraumatic, normocephalic Eye exam: Present: conjuntiva pink, sclera anicteric Neck exam general surgery: Present: supple, trachea midline. Absent: lymphadenopathy Respiratory exam: Present: decreased breath sounds, few crackles in bases. Cardiovascular exam: Present: RRR, +S1, +S2. Absent: diastolic murmur, gallop, rubs, systolic murmur GI/Abdominal exam: Present: normal bowel sounds, soft, no peritoneal signs. Absent: distended, tenderness Extremities exam: Present: warm, radial pulses palpable and symmetrical. Area of ecchymosis on the lateral lower left leg just superior to ankle (unchanged from yesterday). Trace edema bilaterally, no pain. Absent: calf tenderness, cyanotic. Neurological exam: Present: alert, no focal deficits. Absent: speech deficit Skin exam: Present: dry, intact - Assessment and Plan (1) Acute respiratory failure with hypoxia Current Visit: Yes Status: Resolved Assessment and Plan: Initially hypoxic on RA with increased work in breathing. CXR showing bilaterally opacities CT showing bilateral effusions, may have over lying pneumonia. Acute resp failure likely due to combinations of fluid overload secondary to CHF, pneumonia, and possible COPD/asthma. Discussed with PCP patient's history of steroid allergy, PCP Marcela Bass believes this was listed due to side effects. Patient given steroids during admission and tolerated these well without side effects. Plan: Titrate/wean supplemental O2 to maintain O2 saturation >90%. Currently on 2L. Continue on duonebs, singulair, symbicort. Will transition from IV steroids to PO. Given 1 dose of Zosyn and Vancomycin in the ED. Will continue antibiotics with Zosyn (day 3)and Levaquin Q48H (2 doses) Of note patient on aricept, lexapro, and levaquin which are all QT prolonging medications. EKGs reviewed, no past QTC prolongation, though recommend close monitoring, if there is further concern we will stop levaquin. Dispo: Patient improving, however she is from [facility] and she will insurance pr eauthorization to return. PT/OT to see her Wednesday. (2) Multifocal pneumonia Current Visit: Yes Status: Acute Assessment and Plan: Patient's resp failure likely multifactorial. See complete plan as above. Patient improving. Continuing IV antibiotics. Continue lasix and breathing treatments as needed. IV steroids transitioned to PO. (3) Heart failure with preserved ejection fraction Current Visit: Yes Status: Suspected Assessment and Plan: Echo in May 2018 with EF 60-65%. Patient with pleural effusions bilaterally and hypoxia on initial presentation. Continue lasix BID. Continue to monitor vitals/electrolytes/kidney function. (4) Hyponatremia Current Visit: No Status: Chronic Assessment and Plan: Chronic, at baseline, will continue to monitor with AM labs as indicated. (5) Hypokalemia Current Visit: No Status: Acute Assessment and Plan: K+ 3.2 today, replaced with 40meq PO once. Monitor with AM labs. (6) Dementia Current Visit: No Status: Chronic Assessment and Plan: Chronic. Continue aricept for now, could hold if concerned about QT prolongation. (7) Diabetes Current Visit: No Status: Chronic Assessment and Plan: Home meds held. Continue 10units basal insulin and Low dose corrective SSI (8) Hypertension Current Visit: No Status: Chronic Assessment and Plan: Currently stable on home medications with BP 130/51 Will continue home regimen. (9) DVT prophylaxis Current Visit: No Status: Acute Assessment and Plan: SQ heparin DVT Prophylaxis: SQ heparin - Time Spent with Patient Total time spent is greater than 50% in coordination of care (as documented) at patient's floor/unit and/or counseling patient: less than 15 minutes Plan of Care Discussed with: patient Internal Medicine: Result - Labs CBC & Chem 7: 08/05/18 03:39 08/06/18 12:10 Labs: BMP 08/06/18 12:10 Sodium 131 L Potassium 3.2 L Chloride 96 L Carbon Dioxide 24 BUN 37 H Creatinine 1.17 Glucose 348 H Calcium 8.6 - ABG Interpretation ABG results: ABG ABG pH 7.47 pH Units (7.32-7.45) H 08/04/18 15:35 ABG pCO2 34 mmHg (35-45) L 08/04/18 15:35 ABG pO2 70 mmHg (85-104) L 08/04/18 15:35 ABG O2 Saturation 95 % (95-98) 08/04/18 15:35 PT/INR, D-dimer PT 14.0 Seconds (9.4-12.1) H 08/05/18 07:50 - Impressions Impressions Chest Ultrasound 08/05/18 07:18 IMPRESSION: No significant pleural fluid identified to perform thoracentesis bilaterally. D/ / Jarrett Pineda / Jarrett Pineda Interpreting Provider: Jarrett Pineda Chest Ultrasound 08/05/18 07:18 IMPRESSION: No significant pleural fluid identified to perform thoracentesis bilaterally. D/ / Jarrett Pineda / Jarrett Pineda Interpreting Provider: Jarrett Pineda Chest X-Ray 08/06/18 07:00 IMPRESSION: Slightly improved pulmonary edema. D/ /06/2018 07:59:24 Nickie Ashby MD / bcarter Interpreting Provider: Nickie Ashby MD Consult Discharge Plan - Plan Referrals: Marcela Bass, AUDIT PRACTICE INTERN [Primary Care Provider] - <Bronson Sandoval - Last Filed: 08/06/18 18:35> Hospitalist Progress Note - Encounter Date of Encounter: 08/06/18 - Exam Vitals: Temp Pulse Resp BP Pulse Ox 97.5 F L 65 15 130/51 94 08/06/18 15:10 08/06/18 15:10 08/06/18 16:15 08/06/18 15:10 08/06/18 16:15 - Time Spent with Patient Total time spent is greater than 50% in coordination of care (as documented) at patient's floor/unit and/or counseling patient: Internal Medicine: Result - Labs CBC & Chem 7: 08/05/18 03:39 08/06/18 12:10 Labs: BMP 08/06/18 12:10 Sodium 131 L Potassium 3.2 L Chloride 96 L Carbon Dioxide 24 BUN 37 H Creatinine 1.17 Glucose 348 H Calcium 8.6 - ABG Interpretation ABG results: ABG ABG pH 7.47 pH Units (7.32-7.45) H 08/04/18 15:35 ABG pCO2 34 mmHg (35-45) L 08/04/18 15:35 ABG pO2 70 mmHg (85-104) L 08/04/18 15:35 ABG O2 Saturation 95 % (95-98) 08/04/18 15:35 PT/INR, D-dimer PT 14.0 Seconds (9.4-12.1) H 08/05/18 07:50 - Impressions Impressions Chest X-Ray 08/06/18 07:00 IMPRESSION: Slightly improved pulmonary edema. D/ /06/2018 07:59:24 Nickie Ashby MD / [email or web address] Interpreting Provider: Nickie Ashby MD - Attending Attestation saw and independently assessed this patient and agree with plan per resident as above Exam Resp. Expiratory wheezes. Improved this am Plan Acute hypoxic respiratory likely secondary to multifocal pneumonia, Asthma/COPD exacerbation and heart failure with preserved EF - Obtain blood cultures, urine strep and legionella antigen. Started on zosyn and levaquin for possible bacterial HCAP. Repeat cxr in am. Improving . D/C zosyn. continue levaquin - Lasix as needed for pulmonary edema. Last echo showed preserved EF - Asthma wexacerbation. Patient tolerating methylprednisolone. Continue round the clock nebs -Small pericardial effusion. Repeat 2D echo. 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
[2018-08-06] MEDS: Insulin DETEMIR 100 UNIT/ML X5UNITS SQ SCH (20:23)
[2018-08-07 02:47] LABS: Hematocrit 32.6 % (35.3-44.9); Hemoglobin 10.9 g/dL (11.5-15.4); Immature Granulocytes % 0.5 % (0-4); Lymphocytes % 15.6 %; Mean Corpuscular HGB Conc 33.4 g/dL (31.6-35.5); Mean Corpuscular Hemoglobin 28.5 pg (28.0-33.3); Mean Corpuscular Volume 85.1 fL (83.0-100.0); Mean Platelet Volume 9.5 fL (9.4-12.4); Monocytes # 0.7 K/mcL (0.0-1.3); Monocytes % 10.6 %; Neutrophils # 4.5 K/mcL (1.6-8.9); Platelet Count 190 K/mcL (140-400); Red Blood Count 3.83 M/mcL (3.82-4.97); Segmented Neutrophils % 73.3 %
[2018-08-07 03:02] LABS: Calcium 8.5 mg/dL (8.6-10.3); Potassium 3.4 mEq/L (3.5-5.1)
[2018-08-07] MEDS: Ipratropium/Albuterol Neb 3 ML IH SCH ×5 (04:21→20:07)
[2018-08-07] MEDS: *HR* Heparin 5,000 UNIT/ML VIAL SQ SCH ×3 (05:51→20:16)
[2018-08-07] MEDS: Budesonide/Formoterol 160/4.5 1 PUFF INH IH SCH ×2 (08:04→20:07)
[2018-08-07] MEDS ORDERED: Levofloxacin 750 MG/150 ML 750 MG/150 ML BAG IVPB SCH (09:00)
[2018-08-07] MEDS: amLODIPine 5 MG TABLET PO SCH (09:25)
[2018-08-07] MEDS: Cyanocobalamin (B-12) 1,000 MCG TABLET PO SCH (09:25)
[2018-08-07] MEDS: predniSONE 20 MG TABLET PO SCH (09:25)
[2018-08-07] MEDS: Aspirin Enteric Coated 81 MG Tablet PO SCH (09:26)
[2018-08-07] MEDS: Furosemide 40 MG/4 ML VIAL IVP SCH (09:26)
[2018-08-07] MEDS: Insulin LISPRO 300 UNITS/3 ML VIAL SQ SCH ×4 (09:27→21:18)
--- NOTE | 2018-08-07 09:29 | Internal Med Progress Note ---
<Antonio Hernandez - Last Filed: 08/07/18 11:59> Hospitalist Progress Note - Encounter Date of Encounter: 08/07/18 Time of Encounter: 08:30 - Subjective Interval History: Patient seen and evaluated laying down in bed, sleeping but easily arousable. Upon waking she states she would like to get out of bed and up to chair, nurse notified. States she is hungery, breakfast not arrived. No acute distress. Denies chest pain, shortness of breath, nausea, vomiting, abd pain. Currently on 2L via NC. - Exam Vitals: Temp Pulse Resp BP Pulse Ox 98.7 F 59 18 143/76 98 08/07/18 06:00 08/07/18 06:00 08/07/18 08:04 08/07/18 06:00 08/07/18 08:04 Exam: General appearance: Present: cooperative, A&O X 2 Head exam: Present: atraumatic, normocephalic Eye exam: Present: conjuntiva pink, sclera anicteric Neck exam general surgery: Present: supple, trachea midline. Absent: lymphadenopathy Respiratory exam: Present: CTAB, no wheezes/rales/rhonchi Cardiovascular exam: Present: RRR, +S1, +S2. Absent: diastolic murmur, gallop, rubs, systolic murmur GI/Abdominal exam: Present: normal bowel sounds, soft, no peritoneal signs. Absent: distended, tenderness Extremities exam: Present: warm, radial pulses palpable and symmetrical. Area of ecchymosis on the lateral lower left leg just superior to ankle (unchanged from yesterday). Trace edema bilaterally (R>L), no pain. Absent: calf tenderness, cyanotic. Neurological exam: Present: alert, no focal deficits. Absent: speech deficit Skin exam: Present: dry, intact - Assessment and Plan (1) Acute respiratory failure with hypoxia Current Visit: Yes Status: Resolved Assessment and Plan: Initially hypoxic on RA with increased work in breathing. CXR showing bilaterally opacities CT showing bilateral effusions, may have over lying pneumonia. Acute resp failure likely due to combinations of fluid overload secondary to CHF, pneumonia, and possible COPD/asthma. Discussed with PCP patient's history of steroid allergy, PCP Marcela Bass believes this was listed due to side effects. Patient given steroids during admission and tolerated these well without side effects. Plan: Titrate/wean supplemental O2 to maintain O2 saturation >90%. Currently on 2L. Continue on duonebs, singulair, symbicort. Will transition from IV steroids to PO. Given 1 dose of Zosyn and Vancomycin in the ED. Zosyn (given for 3 days). Continueing Levaquin Q48H (3rd dose today) Of note patient on aricept, lexapro, and levaquin which are all QT prolonging medications. EKGs reviewed, no past QTC prolongation, though recommend close monitoring, if there is further concern we will stop levaquin. Dispo: Patient improving, however she is from [facility] and she will insurance preauthorization to return. PT/OT saw her and recommended ECF. (2) Multifocal pneumonia Current Visit: Yes Status: Acute Assessment and Plan: Patient's resp failure likely multifactorial. See complete plan as above. Patient improving. Continuing IV antibiotics. Continue lasix and breathing treatments as needed. PO steroids.. (3) Heart failure with preserved ejection fraction Current Visit: Yes Status: Suspected Assessment and Plan: Echo in May 2018 with EF 60-65%. Patient with pleural effusions bilaterally and hypoxia on initial presentation. Continue lasix BID. Continue to monitor vitals/electrolytes/kidney function. (4) Hyponatremia Current Visit: No Status: Chronic Assessment and Plan: Chronic, at baseline, will continue to monitor with AM labs as indicated. (5) Hypokalemia Current Visit: No Status: Acute Assessment and Plan: K+ 3.4 today, replaced with 40meq PO once. Monitor with AM labs. (6) Dementia Current Visit: No Status: Chronic Assessment and Plan: Chronic. Continue aricept for now, could hold if concerned about QT prolongation. (7) Diabetes Current Visit: No Status: Chronic Assessment and Plan: Home meds held. Continue 15 units basal insulin and Low dose corrective SSI (8) Hypertension Current Visit: No Status: Chronic Assessment and Plan: Currently stable on home medications with BP 143/78 Will continue home regimen. (9) DVT prophylaxis Current Visit: No Status: Acute Assessment and Plan: sq heparin DVT Prophylaxis: SQ heparin - Time Spent with Patient Total time spent is greater than 50% in coordination of care (as documented) at patient's floor/unit and/or counseling patient: less than 15 minutes Plan of Care Discussed with: patient Internal Medicine: Result - Labs CBC & Chem 7: 08/07/18 01:58 08/07/18 01:58 Labs: Short CBC 08/07/18 Range/Units 01:58 WBC 6.1 (4.3-11.1) K/mcL Hgb 10.9 L (11.5-15.4) g/dL Hct 32.6 L (35.3-44.9) % Plt Count 190 (140-400) K/mcL Neutrophils # 4.5 (1.6-8.9) K/mcL BMP 08/06/18 08/07/18 12:10 01:58 Sodium 131 L 131 L Potassium 3.2 L 3.4 L Chloride 96 L 97 L Carbon Dioxide 24 26 BUN 37 H 35 H Creatinine 1.17 1.12 Glucose 348 H 264 H Calcium 8.6 8.5 L - ABG Interpretation ABG results: ABG ABG pH 7.47 pH Units (7.32-7.45) H 08/04/18 15:35 ABG pCO2 34 mmHg (35-45) L 08/04/18 15:35 ABG pO2 70 mmHg (85-104) L 08/04/18 15:35 ABG O2 Saturation 95 % (95-98) 08/04/18 15:35 PT/INR, D-dimer PT 14.0 Seconds (9.4-12.1) H 08/05/18 07:50 Consult Discharge Plan - Plan Referrals: Marcela Bass, PATIENT REGISTRATION CLERK [Primary Care Provider] - <Bronson Sandoval - Last Filed: 08/07/18 15:41> Hospitalist Progress Note - Encounter Date of Encounter: 08/07/18 - Exam Vitals: Temp Pulse Resp BP Pulse Ox 98.3 F 65 16 122/57 95 08/07/18 11:39 08/07/18 11:39 08/07/18 11:39 08/07/18 11:39 08/07/18 11:39 - Time Spent with Patient Total time spent is greater than 50% in coordination of care (as documented) at patient's floor/unit and/or counseling patient: Internal Medicine: Result - Labs CBC & Chem 7: 08/07/18 01:58 08/07/18 01:58 Labs: Short CBC 08/07/18 Range/Units 01:58 WBC 6.1 (4.3-11.1) K/mcL Hgb 10.9 L (11.5-15.4) g/dL Hct 32.6 L (35.3-44.9) % Plt Count 190 (140-400) K/mcL Neutrophils # 4.5 (1.6-8.9) K/mcL BMP 08/07/18 01:58 Sodium 131 L Potassium 3.4 L Chloride 97 L Carbon Dioxide 26 BUN 35 H Creatinine 1.12 Glucose 264 H Calcium 8.5 L - ABG Interpretation ABG results: ABG ABG pH 7.47 pH Units (7.32-7.45) H 08/04/18 15:35 ABG pCO2 34 mmHg (35-45) L 08/04/18 15:35 ABG pO2 70 mmHg (85-104) L 08/04/18 15:35 ABG O2 Saturation 95 % (95-98) 08/04/18 15:35 PT/INR, D-dimer PT 14.0 Seconds (9.4-12.1) H 08/05/18 07:50 - Attending Attestation I saw and independently assessed this patient and agree with plan per resident as above Exam Resp. Expiratory wheezes. Improved this am Plan Acute hypoxic respiratory likely secondary to multifocal pneumonia, Asthma/COPD exacerbation and heart failure with preserved EF - Obtain blood cultures, urine strep and legionella antigen. Started on zosyn and levaquin for possible bacterial HCAP. Repeat cxr in am. Improving . D/C zosyn. continue levaquin - Lasix as needed for pulmonary edema. Last echo showed preserved EF - Asthma wexacerbation. Patient tolerating methylprednisolone. Continue round the clock nebs -Small pericardial effusion. Repeat 2D echo. Echo negative <Hernandez,Antonio Nathalie - Last Filed: 08/07/18 11:59> (6) Dementia Qualifiers: Dementia type: unspecified type Dementia behavioral disturbance: without behavioral disturbance Qualified Code(s): F03.90 - Unspecified dementia without behavioral disturbance (7) Diabetes Qualifiers: Diabetes mellitus type: type 2 Diabetes mellitus tank terminal gauger insulin use: without tank terminal gauger use Diabetes mellitus complication status: without complication Qualified Code(s): E11.9 - Type 2 diabetes mellitus without complications (8) Hypertension Qualifiers: Hypertension type: essential hypertension Qualified Code(s): I10 - Essential (primary) hypertension
[2018-08-07] MEDS: Insulin DETEMIR 100 UNIT/ML X5UNITS SQ SCH (21:18)
[2018-08-08] MEDS: Ipratropium/Albuterol Neb 3 ML IH SCH ×7 (00:53→23:03)
[2018-08-08 04:40] LABS: Eosinophils % 0.3 %; Hematocrit 34.4 % (35.3-44.9); Hemoglobin 11.5 g/dL (11.5-15.4); Immature Granulocytes % 0.5 % (0-4); Lymphocytes # 1.3 K/mcL (0.6-4.6); Mean Corpuscular HGB Conc 33.4 g/dL (31.6-35.5); Mean Corpuscular Hemoglobin 28.5 pg (28.0-33.3); Mean Corpuscular Volume 85.1 fL (83.0-100.0); Mean Platelet Volume 9.4 fL (9.4-12.4); Monocytes # 0.7 K/mcL (0.0-1.3); Monocytes % 10.3 %; Neutrophils # 4.5 K/mcL (1.6-8.9); Platelet Count 184 K/mcL (140-400); Red Blood Count 4.04 M/mcL (3.82-4.97); Red Cell Distribution Width 13.7 % (11.5-14.5); Segmented Neutrophils % 68.9 %
[2018-08-08 04:56] LABS: Alanine Aminotransferase 17 Units/L (7-52); Albumin 3.3 g/dL (3.5-5.7); Albumin/Globulin Ratio 1.2 (1.1-2.2); Alkaline Phosphatase 68 Units/L (34-104); Aspartate Amino Transferase 13 Units/L (13-39); BUN/Creatinine Ratio 37 (6-26); Bilirubin,Total 0.3 mg/dL (0.3-1.0); Blood Urea Nitrogen 25 mg/dL (8-23); Calcium 8.4 mg/dL (8.6-10.3); Carbon Dioxide 28 mEq/L (23-29); Chloride 96 mEq/L (98-107); Globulin 2.7 g/dL (2.4-3.5); Glucose 227 mg/dL (70-105); Osmolality,Calculated 286 (280-300); Potassium 3.4 mEq/L (3.5-5.1); Sodium 132 mEq/L (136-145); eGFR For Non-African Americans > 60 (> 60)
[2018-08-08] MEDS: *HR* Heparin 5,000 UNIT/ML VIAL SQ SCH ×3 (05:22→21:33)
[2018-08-08] MEDS: Budesonide/Formoterol 160/4.5 1 PUFF INH IH SCH ×2 (07:13→19:37)
[2018-08-08] MEDS: predniSONE 20 MG TABLET PO SCH (08:40)
[2018-08-08] MEDS: Insulin LISPRO 300 UNITS/3 ML VIAL SQ SCH ×4 (08:41→21:11)
[2018-08-08] MEDS: amLODIPine 5 MG TABLET PO SCH (08:41)
[2018-08-08] MEDS: Furosemide 40 MG/4 ML VIAL IVP SCH (08:41)
[2018-08-08] MEDS: Cyanocobalamin (B-12) 1,000 MCG TABLET PO SCH (08:41)
[2018-08-08] MEDS: Aspirin Enteric Coated 81 MG Tablet PO SCH (08:41)
--- NOTE | 2018-08-08 13:26 | Internal Med Progress Note ---
<GlennaSachi E - Last Filed: 08/08/18 16:54> Hospitalist Progress Note - Encounter Date of Encounter: 08/08/18 Time of Encounter: 09:30 - Subjective Interval History: Ms. Tavares was seen at [facility] today. She states she is not in pain and that she wants to go home. She states she is able to breath without coughing and s hortness of breath. Denies nausea, vomiting, diarrhea. - Exam Vitals: Temp Pulse Resp BP Pulse Ox 97.4 F L 58 18 117/63 92 08/08/18 11:17 08/08/18 11:17 08/08/18 11:22 08/08/18 11:17 08/08/18 11:22 Exam: Genera: cooperative, AAx2 Head: atraumatic, normocephalic Respiratory: CTAB, no wheezing, rhonchi, or rales Cardio: RRR, no murmur, rubs, or gallops Abd: normal bowel sounds, no tenderness to palpation, no gaurding/rigidity Skin: warm, dry, intact Extremities: no pedal edema, pulses equal in all 4 extremities - Assessment and Plan (1) Acute respiratory failure with hypoxia Current Visit: Yes Status: Resolved Assessment and Plan: We will wean O2 to room air if possible Continue duonebs, singulair, symbacort, (2) Multifocal pneumonia Current Visit: Yes Status: Acute Assessment and Plan: Patient's resp failure likely multifactorial. Patient improving. Continuing IV antibiotics. Continue lasix and breathing treatments as needed. PO steroids. (3) Heart failure with preserved ejection fraction Current Visit: Yes Status: Suspected Assessment and Plan: Echo in May 2018 with EF 60-65%. Patient with pleural effusions bilaterally and hypoxia on initial presentation. Continue lasix BID. Continue to monitor vitals/electrolytes/kidney function. (4) Hypokalemia Current Visit: No Status: Acute Assessment and Plan: replaced today, continue to monitor (5) Dementia Current Visit: No Status: Chronic Assessment and Plan: Chronic. Continue aricept (6) Diabetes Current Visit: No Status: Chronic Assessment and Plan: Home meds held. Continue 15 units basal insulin and Low dose corrective SSI (7) Hypertension Current Visit: No Status: Chronic Assessment and Plan: Currently stable on home medications Will continue home regimen. (8) Hyponatremia Current Visit: No Status: Chronic Assessment and Plan: Chronic, at baseline, will continue to monitor with AM labs as indicated. DVT Prophylaxis: SQ heparin - Time Spent with Patient Total time spent is greater than 50% in coordination of care (as documented) at patient's floor/unit and/or counseling patient: Internal Medicine: Result - Labs CBC & Chem 7: 08/08/18 03:27 08/08/18 03:27 Labs: Short CBC 08/08/18 Range/Units 03:27 WBC 6.5 (4.3-11.1) K/mcL Hgb 11.5 (11.5-15.4) g/dL Hct 34.4 L (35.3-44.9) % Plt Count 184 (140-400) K/mcL Neutrophils # 4.5 (1.6-8.9) K/mcL BMP 08/08/18 03:27 Sodium 132 L Potassium 3.4 L Chloride 96 L Carbon Dioxide 28 BUN 25 H Creatinine 0.67 Glucose 227 H Calcium 8.4 L Liver Function 08/08/18 Range/Units 03:27 Total Bilirubin 0.3 (0.3-1.0) mg/dL AST 13 (13-39) Units/L ALT 17 (7-52) Units/L Alkaline Phosphatase 68 (34-104) Units/L Albumin 3.3 L (3.5-5.7) g/dL - ABG Interpretation ABG results: ABG ABG pH 7.47 pH Units (7.32-7.45) H 08/04/18 15:35 ABG pCO2 34 mmHg (35-45) L 08/04/18 15:35 ABG pO2 70 mmHg (85-104) L 08/04/18 15:35 ABG O2 Saturation 95 % (95-98) 08/04/18 15:35 PT/INR, D-dimer PT 14.0 Seconds (9.4-12.1) H 08/05/18 07:50 Consult Discharge Plan - Plan Instructions: Bacterial Pneumonia (GEN) Additional Instructions: Finish your antibiotics unless otherwise told by your primary care doctor Finish your prednisone unless otherwise told by your primary care doctor Followup with your primary care doctor as directed Referrals: Marcela Bass, ELECTRIC SCOOP OPERATOR [Primary Care Provider] - Prescriptions: Furosemide [Lasix] 20 mg PO DAILY #7 tablet PredniSONE [Deltasone] 40 mg PO QDPC #3 tablet <Bronson Sandoval A - Last Filed: 08/08/18 17:03> Hospitalist Progress Note - Encounter Date of Encounter: 08/08/18 - Exam Vitals: Temp Pulse Resp BP Pulse Ox 97.4 F L 73 16 148/69 94 08/08/18 16:05 08/08/18 16:05 08/08/18 16:05 08/08/18 16:05 08/08/18 16:05 - Time Spent with Patient Total time spent is greater than 50% in coordination of care (as documented) at patient's floor/unit and/or counseling patient: Internal Medicine: Result - Labs CBC & Chem 7: 08/08/18 03:27 08/08/18 03:27 Labs: Short CBC 08/08/18 Range/Units 03:27 WBC 6.5 (4.3-11.1) K/mcL Hgb 11.5 (11.5-15.4) g/dL Hct 34.4 L (35.3-44.9) % Plt Count 184 (140-400) K/mcL Neutrophils # 4.5 (1.6-8.9) K/mcL BMP 08/08/18 03:27 Sodium 132 L Potassium 3.4 L Chloride 96 L Carbon Dioxide 28 BUN 25 H Creatinine 0.67 Glucose 227 H Calcium 8.4 L Liver Function 08/08/18 Range/Units 03:27 Total Bilirubin 0.3 (0.3-1.0) mg/dL AST 13 (13-39) Units/L ALT 17 (7-52) Units/L Alkaline Phosphatase 68 (34-104) Units/L Albumin 3.3 L (3.5-5.7) g/dL - ABG Interpretation ABG results: ABG ABG pH 7.47 pH Units (7.32-7.45) H 08/04/18 15:35 ABG pCO2 34 mmHg (35-45) L 08/04/18 15:35 ABG pO2 70 mmHg (85-104) L 08/04/18 15:35 ABG O2 Saturation 95 % (95-98) 08/04/18 15:35 PT/INR, D-dimer PT 14.0 Seconds (9.4-12.1) H 08/05/18 07:50 - Attending Attestation I saw and independently assessed this patient and agree with plan per resident as above Exam Resp. Expiratory wheezes. Improved this am Plan Acute hypoxic respiratory likely secondary to multifocal pneumonia, Asthma/COPD exacerbation and heart failure with preserved EF - Complete course of levaquin - Lasix as needed for pulmonary edema. Last echo showed preserved EF. Po lasix daily on discharge - Asthma exacerbation. Patient tolerating methylprednisolone. Continue round the clock nebs Small pericardial effusion. Repeat 2D echo. Echo negative <Sachi Manzanares - Last Filed: 08/08/18 16:54> (5) Dementia Qualifiers: Dementia type: unspecified type Dementia behavioral disturbance: without behavioral disturbance Qualified Code(s): F03.90 - Unspecified dementia without behavioral disturbance (6) Diabetes Qualifiers: Diabetes mellitus type: type 2 Diabetes mellitus keno terminal operator insulin use: without chcf use Diabetes mellitus complication status: without complication Qualified Code(s): E11.9 - Type 2 diabetes mellitus without complications (7) Hypertension Qualifiers: Hypertension type: essential hypertension Qualified Code(s): I10 - Essential (primary) hypertension
--- NOTE | 2018-08-08 13:43 | Discharge Summary ---
<Sachi Manzanares E - Last Filed: 08/08/18 14:29> Orders not resulted at time of discharge: Pending orders 08/04/18 15:03 Culture,Blood [BC] Stat 08/05/18 06:00 EKG [ECG 12 lead ECG] [ECG] AM 0600 08/05/18 07:26 Amylase,Pleural Fluid [BF] Routine Cell Count w Diff, Pleural Fld [BF] Routine Culture,Body Fluid [RM] Routine Glucose,Pleural Fluid [BF] Routine LDH,Pleural Fluid [BF] Routine Total Protein,Pleural Fluid [BF] Routine pH,Pleural Fluid [BF] Routine 08/09/18 04:00 CBC [Complete Blood Count] [HEME] AM 0400 CMP [Comprehensive Metabolic Panel] AM 0400 Date of Encounter: 08/08/18 Time of Encounter: 09:15 - Discharge Diagnosis (1) Acute respiratory failure with hypoxia Priority: Primary Status: Resolved (2) Multifocal pneumonia Priority: Primary Status: Acute (3) Heart failure with preserved ejection fraction Priority: Primary Status: Suspected (4) Hypokalemia Priority: Primary Status: Acute (5) Dementia Priority: Secondary Status: Chronic Qualifiers: Dementia type: unspecified type Dementia behavioral disturbance: without behavioral disturbance Qualified Code(s): F03.90 - Unspecified dementia without behavioral disturbance (6) Diabetes Priority: Secondary Status: Chronic Qualifiers: Diabetes mellitus type: type 2 Diabetes mellitus predatory animal exterminator insulin use: without usp use Diabetes mellitus complication status: without complication Qualified Code(s): E11.9 - Type 2 diabetes mellitus without complications (7) Hypertension Priority: Secondary Status: Chronic Qualifiers: Hypertension type: essential hypertension Qualified Code(s): I10 - Essential (primary) hypertension (8) Hyponatremia Priority: Secondary Status: Chronic Hospital course: Ms. Tavares is a 88 year old female that presented to [facility] ED from [facility] for hypoxia into the 80's.Patient is a poor historian with history of dementia, however, patient's eldest son was with her. PMHx of dementia, diabetes, HTN, and multiple falls. Reported CXR yesterday showed RLL atelectasis. In the ED patient had CXR showing bilateral opacities, possibly pulmonary edema vs pneumonia. BMP of 769, Troponin negative, CBC and BMP unremarkable other than chronic hyponatremia. Patient was started on zosyn and vancomycin. Antibiotics were switched to levaquin and zosyn and patient was given steroids after checking with PCP what her logged reaction to steroids was, which was more typical side effects than true allergy. Patient was also started on lasix due to her heart failure with preserved ejection fraction and duonebs as needed. PAtient also showed hyperkalemia which was acute adn was replaced and monitored, and hyponatremia which is chronic and monitored. Patient was examined at bedside today and was not in any visual distress, she stated she wanted to go home. She states she is able to get a deep breath today without coughing. Denied any other symptoms or complaints. Will be discharged to [facility] once Prior auth has been okayed and signature has a bed. Will continue PO levaquin for 3 days and 40mg Prednisone 3 days. Discharge discussed with: patient, social work, case management - Time Spent with Patient Total time spent providing and/or coordinating discharge services: - Discharge Medications Prescriptions: Furosemide [Lasix] 20 mg PO DAILY #7 tablet Potassium Chloride 10 meq PO DAILY 7 Days #7 tab.er.prt Home Medications: Aspirin [Lo-Dose Aspirin EC] [place] [address]/29/18 [History] Cyanocobalamin (Vitamin B-12) [Vitamin B-12] 1,[place] [address]/29/18 [History] Escitalopram [Lexapro] 10 mg PO 199905/29/18 [History] Glimepiride [Amaryl] 4 mg PO 08,199905/29/18 [History] Lisinopril [Zestril] 40 mg PO 79905/29/18 [History] Montelukast [Singulair] 10 mg PO 199905/29/18 [History] Omeprazole [PriLOSEC] 40 mg PO 79905/29/18 [History] SitaGLIPtin [Januvia] 100 mg PO 79905/29/18 [History] Donepezil [Aricept] 5 mg PO 199907/20/18 [History] Acetaminophen [Tylenol] 650 mg PO Q6HR PRN 08/04/18 [History] Carvedilol [Coreg] 25 mg PO 08,199908/04/18 [History] Ertapenem [INVanz] 1,000 mg IVPB DAILY 08/04/18 [History] Ipratropium/Albuterol Neb [Duoneb] 3 ml IH 0500,1100,1700,2300 08/04/18 [History] amLODIPine [Norvasc] 5 mg PO 0800 08/04/18 [History] Furosemide [Lasix] 20 mg PO DAILY #7 tablet 08/08/18 [Rx] Levofloxacin [Levaquin] 500 mg PO DAILY #3 08/08/18 [Rx] Potassium Chloride 10 meq PO DAILY 7 Days #7 tab.er.prt 08/09/18 [Rx] Allergies/Adverse Reactions: Allergy/AdvReac Type Severity Reaction Status Date / Time "some steroids" Allergy See Uncoded 05/29/18 14:21 Comments Date of admission: 08/04/18 13:19 Primary care physician: Marcela Bass CNP Consults: 08/05/18 06:55 Consult to Occupational Therapy [CONS] Routine Comment: Evaluate, develop and implement POC Reason for Consult: from ECF will need eval prior to return (we can change bedrest order if needed, patient with dementia and hx of falls) Does patient have active BEDREST order?: Yes Is patient medically & hemodynamically stable?: Yes Patient assessed for mobility or mobilized this visit?: No Consult to Physical Therapy [CONS] Routine Comment: Evaluate, develop and implement POC Reason for Consult: from [facility], will need evaluation prior to returning.(we can change bedrest order if needed, patient with dementia and hx of falls) Does patient have active BEDREST order?: Yes Is patient medically & hemodynamically stable?: Yes Patient assessed for mobility or mobilized this visit?: No 08/05/18 07:22 Consult to Interventional Radiology [CONS] Routine Consulting Provider: Radiology Interventional Cols Reason for Consult: bilateral pleural effusions with pneumonia for bilateral thoracentesis Call Completed: No 08/05/18 07:40 Consult to Professional Housing Consultant [CONS] Routine Reason for SW Consult: FROM [facility] Discharging clinician: Bronson Sandoval Anticipated date of discharge: 08/08/18 - Constitutional Vitals: Temp Pulse Resp BP Pulse Ox 97.4 F L 58 18 117/63 92 08/08/18 11:17 08/08/18 11:17 08/08/18 11:22 08/08/18 11:17 08/08/18 11:22 General appearance: Present: cooperative, A&O X 2 Exam: Genera: cooperative, AAx2 Head: atraumatic, normocephalic Respiratory: CTAB, no wheezing, rhonchi, or rales Cardio: RRR, no murmur, rubs, or gallops Abd: normal bowel sounds, no tenderness to palpation, no gaurding/rigidity Skin: warm, dry, intact Extremities: no pedal edema, pulses equal in all 4 extremities - Patient Status Disposition: Transfer SNF Condition: Good Overall status at discharge: patient is progressing back to baseline - Discharge Instructions Instructions: Bacterial Pneumonia (GEN) Follow Up With: Marcela Bass CNP [Primary Care Provider] - Additional Instructions: Patient's medications have been adjusted, please ensure they are appropriately administered. Monitor for signs of CHF with lung exam, edema, or difficulty breathing. Patient received Solu-Medrol and Prednisone while impatient, she did not have any allergy or adverse reaction the the medication. Recommend periodical monitoring of potassium with patient taking diuretics. Please return if patient is having new or worsening symptoms such as chest pain, shortness of breath/respiratory distress. - Diet and Activity Activity: as per physical therapy Diet: advance to your usual diet <Antonio Hernandez - Last Filed: 08/09/18 07:45> - NOTES TO OUTPATIENT PROVIDER Notes to Outpatient Provider: Started on lasix for resp failure 2/2 to pleural effusion, will d/c on lasix and potassium. Repeat BMP in 3 days. Orders not resulted at time of discharge: Pending orders 08/04/18 15:03 Culture,Blood [BC] Stat 08/05/18 06:00 EKG [ECG 12 lead ECG] [ECG] AM 0600 08/05/18 07:26 Amylase,Pleural Fluid [BF] Routine Cell Count w Diff, Pleural Fld [BF] Routine Culture,Body Fluid [RM] Routine Glucose,Pleural Fluid [BF] Routine LDH,Pleural Fluid [BF] Routine Total Protein,Pleural Fluid [BF] Routine pH,Pleural Fluid [BF] Routine Date of Encounter: 08/09/18 - Discharge Diagnosis (1) Acute respiratory failure with hypoxia Priority: Primary Status: Resolved (2) Multifocal pneumonia Priority: Secondary Status: Acute (3) Heart failure with preserved ejection fraction Priority: Secondary Status: Suspected (4) Hyponatremia Priority: Secondary Status: Chronic (5) Hypokalemia Priority: Secondary Status: Acute (6) Dementia Priority: Secondary Status: Chronic Qualifiers: Dementia type: unspecified type Dementia behavioral disturbance: without behavioral disturbance Qualified Code(s): F03.90 - Unspecified dementia without behavioral disturbance (7) Diabetes Priority: Secondary Status: Chronic Qualifiers: Diabetes mellitus type: type 2 Diabetes mellitus predatory animal exterminator insulin use: without usp use Diabetes mellitus complication status: without complication Qualified Code(s): E11.9 - Type 2 diabetes mellitus without complications (8) Hypertension Priority: Secondary Status: Chronic Qualifiers: Hypertension type: essential hypertension Qualified Code(s): I10 - Essential (primary) hypertension (9) DVT prophylaxis Priority: Secondary Status: Acute Hospital course: Ms. Tavares is a 88 year old female Ms. Tavares is a 88 year old female that presented to [facility] ED from [facility] for hypoxia into the 80's.Patient is a poor historian with history of dementia, however, patient's eldest son at bedside. PMHx of dementia, diabetes, HTN, and multiple falls. Reported CXR yesterday showed RLL atelectasis. In the ED patient had CXR showing bilateral opacities, possibly pulmonary edema vs pneumonia. BMP of 769, Troponin negative, CBC and BMP unremarkable other than chronic hyponatremia. Patient received 1 dose Zosyn and Vancomycin in the ED. Patient denies any complaints currently; denies chest pain, shortness of breath, increased sputum, nausea, vomiting, abdominal pain, dysuria, diarrhea, leg pain or edema. Son denies history of aspiration or patient having trouble eating. Son does note patient appears to be working harder to breath. Currently on 2L supplemental oxygen, does not have home oxygen. Discharge discussed with: patient, nurse - Time Spent with Patient Total time spent providing and/or coordinating discharge services: Less than 30 minutes Date of admission: 08/04/18 13:19 Primary care physician: Marcela Bass CNP Consults: 08/05/18 06:55 Consult to Occupational Therapy [CONS] Routine Comment: Evaluate, develop and implement POC Reason for Consult: from [facility] will need eval prior to return (we can change bedrest order if needed, patient with dementia and hx of falls) Does patient have active BEDREST order?: Yes Is patient medically & hemodynamically stable?: Yes Patient assessed for mobility or mobilized this visit?: No Consult to Physical Therapy [CONS] Routine Comment: Evaluate, develop and implement POC Reason for Consult: from ECF, will need evaluation prior to returning.(we can change bedrest order if needed, patient with dementia and hx of falls) Does patient have active BEDREST order?: Yes Is patient medically & hemodynamically stable?: Yes Patient assessed for mobility or mobilized this visit?: No 08/05/18 07:22 Consult to Interventional Radiology [CONS] Routine Consulting Provider: Radiology Interventional Cols Reason for Consult: bilateral pleural effusions with pneumonia for bilateral thoracentesis Call Completed: No 08/05/18 07:40 Consult to Professional Housing Consultant [CONS] Routine Reason for SW Consult: FROM [facility] Discharging clinician: Alfonso Mann Anticipated date of discharge: 08/09/18 - Constitutional Vitals: Temp Pulse Resp BP Pulse Ox 98.0 F 62 14 160/74 96 08/09/18 07:00 08/09/18 07:00 08/09/18 07:00 08/09/18 07:00 08/09/18 07:00 - Patient Status Overall status at discharge: patient is back to baseline - Diet and Activity Activity: as per physical therapy <Bronson Sandoval - Last Filed: 08/09/18 09:08> Orders not resulted at time of discharge: Pending orders 08/04/18 15:03 Culture,Blood [BC] Stat 08/05/18 06:00 EKG [ECG 12 lead ECG] [ECG] AM 0600 08/05/18 07:26 Amylase,Pleural Fluid [BF] Routine Cell Count w Diff, Pleural Fld [BF] Routine Culture,Body Fluid [RM] Routine Glucose,Pleural Fluid [BF] Routine LDH,Pleural Fluid [BF] Routine Total Protein,Pleural Fluid [BF] Routine pH,Pleural Fluid [BF] Routine 08/09/18 04:00 CBC [Complete Blood Count] [HEME] AM 0400 CMP [Comprehensive Metabolic Panel] AM 0400 Date of Encounter: 08/09/18 Hospital course: Ms. Tavares is a 88 year old female - Time Spent with Patient Total time spent providing and/or coordinating discharge services: Date of admission: 08/04/18 13:19 Primary care physician: Marcela Bass CNP Consults: 08/05/18 06:55 Consult to Occupational Therapy [CONS] Routine Comment: Evaluate, develop and implement POC Reason for Consult: from ECF will need eval prior to return (we can change bedrest order if needed, patient with dementia and hx of falls) Does patient have active BEDREST order?: Yes Is patient medically & hemodynamically stable?: Yes Patient assessed for mobility or mobilized this visit?: No Consult to Physical Therapy [CONS] Routine Comment: Evaluate, develop and implement POC Reason for Consult: from [facility], will need evaluation prior to returning.(we can change bedrest order if needed, patient with dementia and hx of falls) Does patient have active BEDREST order?: Yes Is patient medically & hemodynamically stable?: Yes Patient assessed for mobility or mobilized this visit?: No 08/05/18 07:22 Consult to Interventional Radiology [CONS] Routine Consulting Provider: Radiology Interventional Cols Reason for Consult: bilateral pleural effusions with pneumonia for bilateral thoracentesis Call Completed: No 08/05/18 07:40 Consult to Professional Housing Consultant [CONS] Routine Reason for SW Consult: FROM [facility] - Constitutional Vitals: Temp Pulse Resp BP Pulse Ox 97.4 F L 73 16 148/69 94 08/08/18 16:05 08/08/18 16:05 08/08/18 16:05 08/08/18 16:05 08/08/18 16:05 - Attending Attestation I saw and independently assessed this patient and agree with plan per resident as above Exam Resp. Expiratory wheezes. Improved this am Plan Acute hypoxic respiratory likely secondary to multifocal pneumonia, Asthma/COPD exacerbation and heart failure with preserved EF - Complete course of levaquin - Lasix as needed for pulmonary edema. Last echo showed preserved EF. Po lasix daily on discharge - Asthma exacerbation. Patient tolerating methylprednisolone. Continue round the clock nebs Small pericardial effusion. Repeat 2D echo. Echo negative Awaiting discharge to SNF Addendum entered and electronically signed by Antonio Hernandez DO 08/09/18 11:49: Note was signed before updated discharge summary completed. Hospital Course: Ms. Tavares is a 88 year old female that presented to [facility] ED from [facility] for hypoxia into the 80's.Patient is a poor historian with history of dementia, however, patient's eldest son was with her. PMHx of dementia, diabetes, HTN, and multiple falls. CXR from ECF showed RLL atelectasis. In the ED patient had CXR showing bilateral opacities, possibly pulmonary edema vs pneumonia. BMP of 769, Troponin negative, CBC and BMP unremarkable other than chronic hyponatremia. Patient was started on zosyn and vancomycin. Antibiotics were switched to levaquin and zosyn and patient was given steroids after checking with PCP what her logged reaction to steroids was was thought to be typical side effects and not ture allergy. Patient was also started on lasix due to her heart failure with preserved ejection fraction and duonebs as needed. Patient also showed hyperkalemia secondary to the diuretics which was was replaced and monitored, and hyponatremia which is chronic and monitored. She had one episode of choking on pills, evaluated by speech, no difficulties seen, recommended regular diet with thin liquids and crushing pills into pudding. Patient was examined at bedside today and was not in any visual distress, she stated she ready to go home. She states she is able to get a deep breath today without coughing. Denies any other symptoms or complaints. Will be discharged to ECF. Patient completed 5 day steroid course today. Will continue PO levaquin for 2 more days (7 total), continue daily lasix with replacement potassium. Recommend follow up BMP in 2-3 days. Patient Instructions: Will be discharged to ECF today. Patient completed 5 day steroid course today. Will continue PO levaquin for 2 more days (7 total), continue daily lasix with replacement potassium. Recommend follow up BMP in 2-3 days.
[2018-08-08] MEDS: levoFLOXacin 750 MG TABLET PO SCH (14:23)
[2018-08-08] MEDS ORDERED: Insulin LISPRO 300 UNITS/3 ML VIAL SQ ONE (16:31)
[2018-08-08] MEDS ORDERED: Insulin LISPRO 300 UNITS/3 ML VIAL SQ SCH (21:15)
[2018-08-08] MEDS: Insulin DETEMIR 100 UNIT/ML X5UNITS SQ SCH (21:33)
[2018-08-09] MEDS: Ipratropium/Albuterol Neb 3 ML IH SCH ×4 (03:28→15:51)
[2018-08-09 05:32] LABS: Eosinophils # 0.1 K/mcL (0.0-0.6); Hematocrit 34.2 % (35.3-44.9); Hemoglobin 11.5 g/dL (11.5-15.4); Immature Granulocytes % 0.5 % (0-4); Lymphocytes # 1.4 K/mcL (0.6-4.6); Lymphocytes % 23.6 %; Mean Corpuscular HGB Conc 33.6 g/dL (31.6-35.5); Mean Corpuscular Hemoglobin 28.7 pg (28.0-33.3); Mean Corpuscular Volume 85.3 fL (83.0-100.0); Mean Platelet Volume 9.7 fL (9.4-12.4); Monocytes # 0.7 K/mcL (0.0-1.3); Neutrophils # 3.8 K/mcL (1.6-8.9); Platelet Count 182 K/mcL (140-400); Red Blood Count 4.01 M/mcL (3.82-4.97); Red Cell Distribution Width 13.7 % (11.5-14.5); Segmented Neutrophils % 62.9 %
[2018-08-09] MEDS: *HR* Heparin 5,000 UNIT/ML VIAL SQ SCH ×2 (05:53→13:58)
[2018-08-09 06:46] LABS: Alanine Aminotransferase 21 Units/L (7-52); Albumin 3.4 g/dL (3.5-5.7); Albumin/Globulin Ratio 1.4 (1.1-2.2); Alkaline Phosphatase 82 Units/L (34-104); Aspartate Amino Transferase 12 Units/L (13-39); BUN/Creatinine Ratio 33 (6-26); Bilirubin,Total 0.3 mg/dL (0.3-1.0); Blood Urea Nitrogen 24 mg/dL (8-23); Calcium 8.6 mg/dL (8.6-10.3); Carbon Dioxide 28 mEq/L (23-29); Chloride 97 mEq/L (98-107); Globulin 2.5 g/dL (2.4-3.5); Glucose 257 mg/dL (70-105); Osmolality,Calculated 293 (280-300); Potassium 3.4 mEq/L (3.5-5.1); Sodium 135 mEq/L (136-145); Total Protein 5.9 g/dL (6.4-8.9); eGFR For Non-African Americans > 60 (> 60)
[2018-08-09] MEDS: Furosemide 40 MG/4 ML VIAL IVP SCH (07:56)
[2018-08-09] MEDS: Cyanocobalamin (B-12) 1,000 MCG TABLET PO SCH (07:57)
[2018-08-09] MEDS: amLODIPine 5 MG TABLET PO SCH (07:57)
[2018-08-09] MEDS: predniSONE 20 MG TABLET PO SCH (07:57)
[2018-08-09] MEDS: Aspirin Enteric Coated 81 MG Tablet PO SCH (07:57)
[2018-08-09] MEDS: Insulin LISPRO 300 UNITS/3 ML VIAL SQ SCH ×2 (07:57→12:10)
[2018-08-09] MEDS: Budesonide/Formoterol 160/4.5 1 PUFF INH IH SCH (08:11)
--- NOTE | 2018-08-09 11:43 | Physician Discharge Referral ---
ExtendedCare Referral Info Transfer To: [facility] Provider in Charge after Transfer: PCP - Diagnosis (1) Acute respiratory failure with hypoxia Priority: Primary Status: Resolved (2) Multifocal pneumonia Priority: Secondary Status: Acute (3) Heart failure with preserved ejection fraction Priority: Secondary Status: Suspected (4) Hyponatremia Priority: Secondary Status: Chronic (5) Hypokalemia Priority: Secondary Status: Acute (6) Dementia Priority: Secondary Status: Chronic (7) Diabetes Priority: Secondary Status: Chronic (8) Hypertension Priority: Secondary Status: Chronic (9) DVT prophylaxis Priority: Secondary Status: Acute Prognosis: Good Aware of Diagnosis: Patient Aware of Prognosis: Patient - Transfer Medications Prescriptions: Furosemide [Lasix] 20 mg PO DAILY #7 tablet Potassium Chloride 10 meq PO DAILY 7 Days #7 tab.er.prt Home Medications: Aspirin [Lo-Dose Aspirin EC] 81 mg PO 0805/29/18 [History] Cyanocobalamin (Vitamin B-12) [Vitamin B-12] 1,[place] [address]/29/18 [History] Escitalopram [Lexapro] 10 mg PO 199905/29/18 [History] Glimepiride [Amaryl] 4 mg PO 08,199905/29/18 [History] Lisinopril [Zestril] 40 mg PO 79905/29/18 [History] Montelukast [Singulair] 10 mg PO 199905/29/18 [History] Omeprazole [PriLOSEC] 40 mg PO 0800 05/29/18 [History] SitaGLIPtin [Januvia] 100 mg PO 0805/29/18 [History] Donepezil [Aricept] 5 mg PO 199907/20/18 [History] Acetaminophen [Tylenol] 650 mg PO Q6HR PRN 08/04/18 [History] Carvedilol [Coreg] 25 mg PO 799,199908/04/18 [History] Ertapenem [INVanz] 1,000 mg IVPB DAILY 08/04/18 [History] Ipratropium/Albuterol Neb [Duoneb] 3 ml IH 0500,1100,1700,2300 08/04/18 [History] amLODIPine [Norvasc] 5 mg PO 0800 08/04/18 [History] Furosemide [Lasix] 20 mg PO DAILY #7 tablet 08/08/18 [Rx] Levofloxacin [Levaquin] 500 mg PO DAILY #3 08/08/18 [Rx] Potassium Chloride 10 meq PO DAILY 7 Days #7 tab.er.prt 08/09/18 [Rx] Allergies/Adverse Reactions: Allergy/AdvReac Type Severity Reaction Status Date / Time "some steroids" Allergy See Uncoded 05/29/18 14:21 Comments - Respiratory Orders None Smoking Cessation: Smoking cessation has been advised. For more information, call the [employer] Tobacco Quit Line at 2-541-TUKH-NOW. - Lab Orders Lab Orders: Other (include drug levels w/frequency) (BMP to be checked in 2-3 days for monitoring Potassium and kidney function) - Ancillary Orders May use pressure relief devices daily prn - Advance Directives Living Will: Yes Power of Collection Specialist for Health Care: Yes Code Status: DNR-Arrest/Don't Intubate - Mobility Orders Chair - Rehabiliation Orders Rehab Potential: Fair Rehab Orders: ROM Exercises, Evaluation for Physical Therapy, Evaluation for Occupational Therapy - Treatments Skin tear care topically daily PRN per policy, May check for fecal impaction rectally daily PRN, Fleet enema rectally every other day PRN cleansing purposes - Diet Orders Regular (diabetic diet with thin liquids and pills crushed in pudding.) CERTIFICATION: I certify that the transfer of the above named patient to an Extended Care Facility is necessary for the continuing treatment of the diagnosis listed. The above information is true and accurate reflection of patient's current condition. Confidential - Redisclosure prohibited without a patient's written consent.
[2018-08-09] MEDS: levoFLOXacin 750 MG TABLET PO SCH (13:59)
--- NOTE | 2018-08-09 15:25 | Internal Med Progress Note ---
<Antonio Hernandez - Last Filed: 08/09/18 15:17> Hospitalist Progress Note - Encounter Date of Encounter: 08/09/18 Time of Encounter: 08:25 - Subjective Interval History: Patient seen and evaluated sitting up in bed, sleeping but easily arousable. Upon waking she denies any complaints, states she is ready to go today.No acute distress. Denies chest pain, shortness of breath, nausea, vomiting, abd pain. Currently on room air. - Exam Vitals: Temp Pulse Resp BP Pulse Ox 97.8 F 56 14 147/67 94 08/09/18 11:15 08/09/18 11:15 08/09/18 11:15 08/09/18 11:15 08/09/18 11:15 Exam: Genera: cooperative, AAx2 Head: atraumatic, normocephalic Respiratory: CTAB, no wheezing, rhonchi, or rales Cardio: RRR, no murmur, rubs, or gallops Abd: normal bowel sounds, no tenderness to palpation, no gaurding/rigidity Skin: warm, dry, intact Extremities: no pedal edema, nontender - Assessment and Plan (1) Acute respiratory failure with hypoxia Current Visit: Yes Status: Resolved Assessment and Plan: Continue duonebs, singulair, symbicort, Will be discharged to ECF today. Patient completed 5 day steroid course today. Will continue PO levaquin for 2 more days (7 total), continue daily lasix with replacement potassium. Recommend follow up BMP in 2-3 days. (2) Multifocal pneumonia Current Visit: Yes Status: Acute Assessment and Plan: Patient's resp failure likely multifactorial. Patient improving. Continue antibiotics for 2 day (7 days total) Continue lasix and breathing treatments as needed. Completed steroids. (3) Heart failure with preserved ejection fraction Current Visit: Yes Status: Suspected Assessment and Plan: continue lasix and replacement potassium daily. Monitor BMP. (4) Hyponatremia Current Visit: No Status: Chronic Assessment and Plan: chronic and stable (5) Hypokalemia Current Visit: No Status: Acute Assessment and Plan: replaced (6) Dementia Current Visit: No Status: Chronic Assessment and Plan: cont home meds. (7) Diabetes Current Visit: No Status: Chronic Assessment and Plan: elevated with steroid use. 5 days of steroids completed today. With discharge will transition back to home meds. (8) Hypertension Current Visit: No Status: Chronic Assessment and Plan: BP 147/67 Continue home meds. (9) DVT prophylaxis Current Visit: No Status: Acute DVT Prophylaxis: SQ heparin - Time Spent with Patient Total time spent is greater than 50% in coordination of care (as documented) at patient's floor/unit and/or counseling patient: less than 15 minutes Internal Medicine: Result - Labs CBC & Chem 7: 08/09/18 03:58 08/09/18 03:58 Labs: Short CBC 08/09/18 Range/Units 03:58 WBC 6.0 (4.3-11.1) K/mcL Hgb 11.5 (11.5-15.4) g/dL Hct 34.2 L (35.3-44.9) % Plt Count 182 (140-400) K/mcL Neutrophils # 3.8 (1.6-8.9) K/mcL BMP 08/09/18 03:58 Sodium 135 L Potassium 3.4 L Chloride 97 L Carbon Dioxide 28 BUN 24 H Creatinine 0.72 Glucose 257 H Calcium 8.6 Liver Function 08/09/18 Range/Units 03:58 Total Bilirubin 0.3 (0.3-1.0) mg/dL AST 12 L (13-39) Units/L ALT 21 (7-52) Units/L Alkaline Phosphatase 82 (34-104) Units/L Albumin 3.4 L (3.5-5.7) g/dL - ABG Interpretation ABG results: ABG ABG pH 7.47 pH Units (7.32-7.45) H 08/04/18 15:35 ABG pCO2 34 mmHg (35-45) L 08/04/18 15:35 ABG pO2 70 mmHg (85-104) L 08/04/18 15:35 ABG O2 Saturation 95 % (95-98) 08/04/18 15:35 PT/INR, D-dimer PT 14.0 Seconds (9.4-12.1) H 08/05/18 07:50 - Impressions Impressions Chest X-Ray 08/06/18 07:00 IMPRESSION: Slightly improved pulmonary edema. D/ /06/2018 07:59:24 Nickie Ashby MD / ravi Interpreting Provider: Nickie Ashby MD Consult Discharge Plan - Plan Instructions: Bacterial Pneumonia (GEN) Additional Instructions: Patient's medications have been adjusted, please ensure they are appropriately administered. Monitor for signs of CHF with lung exam, edema, or difficulty breathing. Patient received Solu-Medrol and Prednisone while impatient, she did not have any allergy or adverse reaction the the medication. Recommend periodical monitoring of potassium with patient taking diuretics. Please return if patient is having new or worsening symptoms such as chest pain, shortness of breath/respiratory distress. Referrals: Marcela Bass CNP [Primary Care Provider] - 08/15/18 10:35 am Prescriptions: Furosemide [Lasix] 20 mg PO DAILY #7 tablet Potassium Chloride 10 meq PO DAILY 7 Days #7 tab.er.[email or web address] <Alfonso Mann - Last Filed: 08/09/18 16:06> Hospitalist Progress Note - Encounter Date of Encounter: 08/09/18 Time of Encounter: 08:55 - Exam Vitals: Temp Pulse Resp BP Pulse Ox 98.0 F 65 14 151/68 93 08/09/18 15:46 08/09/18 15:46 08/09/18 15:46 08/09/18 15:46 08/09/18 15:51 - Time Spent with Patient Total time spent is greater than 50% in coordination of care (as documented) at patient's floor/unit and/or counseling patient: Internal Medicine: Result - Labs CBC & Chem 7: 08/09/18 03:58 08/09/18 03:58 Labs: Short CBC 08/09/18 Range/Units 03:58 WBC 6.0 (4.3-11.1) K/mcL Hgb 11.5 (11.5-15.4) g/dL Hct 34.2 L (35.3-44.9) % Plt Count 182 (140-400) K/mcL Neutrophils # 3.8 (1.6-8.9) K/mcL BMP 08/09/18 03:58 Sodium 135 L Potassium 3.4 L Chloride 97 L Carbon Dioxide 28 BUN 24 H Creatinine 0.72 Glucose 257 H Calcium 8.6 Liver Function 08/09/18 Range/Units 03:58 Total Bilirubin 0.3 (0.3-1.0) mg/dL AST 12 L (13-39) Units/L ALT 21 (7-52) Units/L Alkaline Phosphatase 82 (34-104) Units/L Albumin 3.4 L (3.5-5.7) g/dL - ABG Interpretation ABG results: ABG ABG pH 7.47 pH Units (7.32-7.45) H 08/04/18 15:35 ABG pCO2 34 mmHg (35-45) L 08/04/18 15:35 ABG pO2 70 mmHg (85-104) L 08/04/18 15:35 ABG O2 Saturation 95 % (95-98) 08/04/18 15:35 PT/INR, D-dimer PT 14.0 Seconds (9.4-12.1) H 08/05/18 07:50 - Impressions Impressions Chest X-Ray 08/06/18 07:00 IMPRESSION: Slightly improved pulmonary edema. D/ /06/2018 07:59:24 Nickie Ashby MD / ravi Interpreting Provider: Nickie Ashby MD - Attending Attestation I saw evaluated and examined this patient and my medical decision-making was reviewed with the Resident Physician, Antonio Hernandez. I agree with the documented findings, disposition and treatment plan as described except to any changes set forth below. We independently had [id number] contact with the patient. Evaluated patient and bedside. She was lying down in bed. Denies any new complaints. No focal weakness in upper extremities or lower exudates. No speech troubles. According to nursing staff, patient had trouble swallowing her pills this morning and may have choked on them. She denies any trouble with swallowing before. She did eat dinner without any difficulty last night. On exam, patient is awake and alert. Cranial nerves are normal to examination. She has somewhat decreased strength in left lower extremity but otherwise strength is normal in all other extremities. S1 and S2 normal. Breath sounds are normal. Acute respiratory failure with hypoxia: Uterine multifocal pneumonia. Continue antibiotics. Continue O2 supplementation. Completed 5 day steroid course. Multifocal pneumonia: Likely bacterial pneumonia. No organism identified. Continue Levaquin to complete treatment course. Diabetes mellitus type 2: Blood sugars were elevated yesterday but has since improved. Will continue current insulin regimen. Essential hypertension: Blood pressure elevated this morning. Continue carvedilol and amlodipine. This needs to be further managed as outpatient with her primary care provider. Dementia: Continue Aricept. Dysphagia: Consult with speech therapy. They recommended regular diet and crushing her pills with applesauce to feed. Will make his recommendations to [facility] and she is being discharged. Risk for complications at this time. 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
[2018-08-09 15:48] VITALS: BP 151/68
== END 2018-08-09 17:39 | DRG 193 ==
LOC: EMEROOARM 10:28 → 3BNU 13:19 → SUATTDRO 13:19 → 3BNU 14:10
PROVIDERS: ADMIT Internal Medicine; ATTEND Internal Medicine